=== PATIENT | female | born 1935 | race Caucasian/White ===

== ENCOUNTER 2019-07-16 16:47 | Outpatient (CLI) | payer MEDICAID, MEDICARE, SELFPAY ==
--- NOTE | 2019-07-16 | XR_ITS ---
WS: [id number] AP pelvis, AP and frog-leg views both hips, 07/16/2019 Clinical Data: Fell out of a car. Comparison: Right hip, 06/24/2018. Findings: Right hip: There is severe cyst formation on both sides of the right hip with narrowing. There are large osteoph ytes both superiorly and inferiorly on the right acetabulum. No fractures are seen. The soft tissues are normal. Left hip: No fractures or dislocations are seen. There is no significant joint space narrowing. No erosion or s clerosis is present. The soft tissues are normal. Pelvis: The right SI joint shows osteoarthritic change. The left SI joint shows mild osteoarthritic change. T he lumbar spine shows osteoarthritis. The pubic symphysis is normal. No left hip fracture is seen. Th e soft tissues are normal. XR/XR hip BI m 5V wo/w pel* [id number] Impression: 1. 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 2. 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 3. 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
== END 2019-07-16 16:48 | disposition home or self-care (01) ==
LOC: RADOUTREAD 16:52
PROVIDERS: Family Provider Family Medicine; PCP Family Medicine; Visit Provider Nurse Practitioner Family
DX: Z76.89 Persons encountering health services in other specified circumstances (principal)

== ENCOUNTER 2019-11-07 09:38 | Emergency (ER) | payer MEDICARE, MEDICAID, SELFPAY ==
[2019-11-07 09:40] VITALS: BP 180/84; PULSE 93; RESP 18; TEMP 36.9; O2SAT 95; BMI 27.4
--- NOTE | 2019-11-07 10:02 | CTR_ITS ---
PROCEDURE INFORMATION: Exam: CT Head Without Contrast Exam date and time: 11/07/2019 10:45 AM Age: 84 years old Clinical indication: Altered mental status/memory loss. TECHNIQUE: Imaging protocol: Computed tomography of the head without contrast. Radiation optimization: All CT scans at this facility use at least one of these dose optimization techniques: automated exposure control; mA and/or kV adjustment per patient size (includes targeted exams where dose is matched to clinical indication); or iterative reconstruction. COMPARISON: No relevant prior studies available. RADIATION DOSE METRICS: Total DLP: 918.4 mGy-cm FINDINGS: Brain: No acute brain parenchymal abnormality. No intracranial hemorrhage. No extraaxial fluid collections. There is diffuse cerebral atrophy. There are white matter low attenuation changes in both cerebral hemispheres likely related to chronic small vessel disease. Ventricles: No hydrocephalus when allowing for the atrophy. Bones/joints: No calvarial fracture. Sinuses: There is mild mucoperiosteal thickening, but no fluid in the visualized paranasal sinuses. Mastoid air cells: The mastoid air cells are aerated. Soft tissues: No acute soft tissue abnormality. CT/CT head wo con* [id number] IMPRESSION: No acute intracranial abnormality. Radiation Dose CTDIVOL = (mGy): DLP = 918.4 (mGy-cm)
--- NOTE | 2019-11-07 10:02 | XRR_ITS ---
PROCEDURE INFORMATION: Exam: XR Chest, 1 View Exam date and time: 11/07/2019 10:03 AM Age: 84 years old Clinical indication: AMS TECHNIQUE: Imaging protocol: XR of the chest Views: 1 view. COMPARISON: No relevant prior studies available. FINDINGS: Lungs: No pneumonia or pulmonary edema. Pleural space: No pleural effusion or pneumothorax. Heart/Mediastinum: The cardiac silhouette is not enlarged. The mediastinal contours are normal. Vasculature: The thoracic aorta is tortuous. Bones/joints: There are multilevel bridging osteophytes in the spine. Bilateral glenohumeral joint degeneration. XR/XR chest 1V portable [id number] IMPRESSION: No acute abnormality.
[2019-11-07 10:16] LABS: Basophils % 0.3 %; Eosinophils % 0.3 %; Hematocrit 37.5 % (37.0-47.0); Hemoglobin 11.8 g/dL (11.5-15.3); Lymphocytes # 1.7 10^3/uL (0.8-4.8); Lymphocytes % 28.4 %; Mean Corpuscular HGB Conc 31.5 g/dL (30.0-36.0); Mean Corpuscular Volume 98.4 fL (81-99); Mean Platelet Volume 10.1 fL (7.4-10.4); Monocytes # 0.5 10^3/uL (0.2-0.9); Monocytes % 8.7 %; Neutrophils # 3.6 10^3/uL (1.8-7.7); Neutrophils % 62.1 %; Nucleated Red Blood Cells % 0 %; Platelet Count 233 10^3/cmm (130-400); Red Blood Count 3.81 10^6/uL (4.1-5.3); Red Cell Distribution Width 12.2 % (12.1-15.1); White Blood Count 5.8 10^3/uL (4.0-10.0)
--- NOTE | 2019-11-07 10:21 | W.ED.AMS ---
HPI - Altered Mental Status General: Chief Complaint: Altered Mental Status Stated Complaint: AMS Time Seen by Provider: 11/07/19 09:39 History of Present Illness: HPI narrative: Patient was reportedly out walking when she was picked up by EMS. It is unclear exactly who called EMS or why.Patient voices no complaints. However, after discussion with the patient it is clear that she suffers from dementia. Patient is awake and alert and in no distress but seems confused at times and unable to answer even the simplest questions. MD complaint: altered mental status and confusion Onset (ago): unknown Severity: severe Review of Systems General: Reports: 10 or more systems reviewed and unremarkable except in HPI and below and ROS unobtainable due to mental status Neuro: Reports: confusion PFSH ED PFSH: Social History Smoking and tobacco status: never smoked Physical Exam Const: COMMON NORMALS: no acute distress, average body habitus, alert and well nourished EXAM LIMITATIONS: altered mental status GENERAL APPEARANCE: cooperative, comfortable and well kempt HENMT: COMMON NORMALS: normocephalic, atraumatic, hearing grossly normal bilaterally, external ears normal, EAC's normal, TM's normal bilaterally, Normal external nose present, Normal nasal mucous membranes and turbinates present, moist oral mucous membranes, oropharynx normal, dentition normal and gingiva normal HEAD & SCALP: normocephalic and atraumatic NOSE: Normal external nose present and Normal nasal mucous membranes and turbinates present EXTERNAL EAR: Yes external ears normal EXTERNAL AUDITORY CANAL: EAC's normal TYMPANIC MEMBRANE: TM's normal bilaterally Eye: COMMON NORMALS: Equal, round and reactive pupils present, EOMs intact bilaterally, conjunctivae normal, no scleral icterus, no papilledema, normal visual dahl by confrontation and fundi normal bilaterally CONJUNCTIVA: Yes conjunctivae normal PUPIL: Yes Equal, round and reactive pupils present DIRECT OPHTHALMOSCOPY: Yes no papilledema and Yes fundi normal bilaterally Neck/C-Spine: COMMON NORMALS: full ROM, no lymphadenopathy, supple, no meningeal signs, no JVD, Thyroid normal and No carotid bruits THYROID: Thyroid normal Chest: COMMONS NORMALS: normal inspection of the chest and normal palpation of entire chest wall Resp: COMMON NORMALS: normal respiratory effort, No retractions, No use of accessory muscles, clear to auscultation bilaterally and percussion normal AUSCULTATION: clear to auscultation bilaterally PERCUSSION: percussion normal Cardio: COMMON NORMALS: no JVD, regular rate, regular rhythm, S1 normal heart sound present, S2 normal heart sound present, No gallops present (Cardio), No clicks present (Cardio), No murmurs present (Cardio), No rub (Cardio) and Peripheral pulses 2+ throughout RATE: regular rate RHYTHM: regular rhythm HEART SOUNDS: S1 normal heart sound present and S2 normal heart sound present PERIPHERAL PULSES: Peripheral pulses 2+ throughout GI: COMMON NORMALS: Normal to inspection, nondistended, normoactive bowel sounds present, Soft to palpation, non-tender, No hepatosplenomegaly present, no masses and no bruits PALPATION: Yes Soft to palpation and Yes No hepatosplenomegaly present : COMMON NORMALS: Yes normal external appearance Back/Pelvis: COMMON NORMALS: thoracic and lumbar spine normal to inspection, no thoracic nor lumbar tenderness, thoraco-lumbar ROM normal and straight leg raise negative bilaterally Extremity: COMMON NORMALS: normal to inspection, full ROM, capillary refill normal, no joint enlargement, no clubbing, cyanosis or edema, no calf tenderness and no pedal edema Neuro: SENSORIUM/ORIENTATION: Yes alert and Yes somnolent MENINGEAL SIGNS: Yes no meningeal signs Psych: APPEARANCE: Yes well kempt Skin: COMMON NORMALS: no rashes or lesions noted, no wounds, no jaundice and no mottling GENERAL SKIN EXAM: no rashes or lesions noted Course Vital Signs: Vital signs: Vital Signs Temperature 98.5 F 11/07/19 09:40 Pulse Rate 93 11/07/19 09:40 Respiratory Rate 18 11/07/19 09:40 Blood Pressure 180/84 11/07/19 09:40 Pulse Oximetry 95 11/07/19 09:40 MDM - Altered Mental Status Lab Data: Labs: Lab Results 11/07/19 11/07/19 11/07/19 Range/Units 10:08 10:08 10:08 WBC 5.8 (4.0-10.0) 10^3/ uL RBC 3.81 L (4.1-5.3) 10^6/u L Hgb 11.8 (11.5-15.3) g/dL Hct 37.5 (37.0-47.0) % MCV 98.4 (81-99) fL MCH 31.0 (28.0-34.0) pg MCHC 31.5 (30.0-36.0) g/dL RDW 12.2 (12.1-15.1) % Plt Count 233 (130-400) 10^3/c mm MPV 10.1 (7.4-10.4) fL Neut % (Auto) 62.1 % Lymph % (Auto) 28.4 % [place] % (Auto) 8.7 % Eos % (Auto) 0.3 % Baso % (Auto) 0.3 % Neut # (Auto) 3.6 (1.8-7.7) 10^3/u L Lymph # (Auto) 1.7 (0.8-4.8) 10^3/u L [place] # (Auto) 0.5 (0.2-0.9) 10^3/u L Eos # (Auto) 0.0 (0.0-0.8) 10^3/u L Baso # (Auto) 0.0 (0.0-0.1) 10^3/u L Nucleated RBC % (a uto) 0 % Nucleated RBCs # 0.0 /100WBC Sodium 136 (136-145) mmol/L Potassium 4.3 (3.5-5.1) mmol/L Chloride 101 (98-107) mmol/L Carbon Dioxide 24 (22-29) mmol/L Anion Gap 15.3 (5-19) BUN 9 (8-23) mg/dL Creatinine 0.7 (0.5-0.9) mg/dL Glucose 113 (65-115) mg/dL Calculated Osmolal ity 279 L (285-295) mOsm/k g Lactate 0.8 (0.5-2.2) mmol/L Calcium 10.8 H (8.5-10.5) mg/dL Total Bilirubin 0.5 (0.15-1.2) mg/dL AST 22 (0-32) U/L ALT 11 (0-33) U/L Alkaline Phosphata se 69 (35-105) IU/L Total Protein 7.4 (6.6-8.7) g/dL Albumin 4.2 (3.5-5.2) g/dL Globulin 3.2 (1.3-4.6) g/dL Lipase 26 (13-60) U/L Urine Color (Yellow) Urine Appearance (CLEAR) Urine pH (5-7) Ur Specific Gravit y (1.005-1.030) Urine Protein (Negative) Urine Glucose (UA) (Normal) Urine Ketones (Negative) Urine Blood (Negative) Urine Nitrate (Negative) Urine Bilirubin (NEGATIVE) Urine Urobilinogen (Negative) mg/dL Ur Leukocyte Susi ase (Negative) Urine RBC (0-2) /hpf Urine WBC (0-5) /hpf Ur Squamous Epith Cells (0-5) Amorphous Sediment Urine Bacteria (NONE) Urine Mucus 11/07/19 Range/Units 10:36 WBC (4.0-10.0) 10^3/ uL RBC (4.1-5.3) 10^6/u L Hgb (11.5-15.3) g/dL Hct (37.0-47.0) % MCV (81-99) fL MCH (28.0-34.0) pg MCHC (30.0-36.0) g/dL RDW (12.1-15.1) % Plt Count (130-400) 10^3/c mm MPV (7.4-10.4) fL Neut % (Auto) % Lymph % (Auto) % [place] % (Auto) % Eos % (Auto) % Baso % (Auto) % Neut # (Auto) (1.8-7.7) 10^3/u L Lymph # (Auto) (0.8-4.8) 10^3/u L [place] # (Auto) (0.2-0.9) 10^3/u L Eos # (Auto) (0.0-0.8) 10^3/u L Baso # (Auto) (0.0-0.1) 10^3/u L Nucleated RBC % (a uto) % Nucleated RBCs # /100WBC Sodium (136-145) mmol/L Potassium (3.5-5.1) mmol/L Chloride (98-107) mmol/L Carbon Dioxide (22-29) mmol/L Anion Gap (5-19) BUN (8-23) mg/dL Creatinine (0.5-0.9) mg/dL Glucose (65-115) mg/dL Calculated Osmolal ity (285-295) mOsm/k g Lactate (0.5-2.2) mmol/L Calcium (8.5-10.5) mg/dL Total Bilirubin (0.15-1.2) mg/dL AST (0-32) U/L ALT (0-33) U/L Alkaline Phosphata se (35-105) IU/L Total Protein (6.6-8.7) g/dL Albumin (3.5-5.2) g/dL Globulin (1.3-4.6) g/dL Lipase (13-60) U/L Urine Color Yellow (Yellow) Urine Appearance Sl hazy (CLEAR) Urine pH 7 (5-7) Ur Specific Gravit y 1.010 (1.005-1.030) Urine Protein Neg (Negative) Urine Glucose (UA) Norm (Normal) Urine Ketones Negative (Negative) Urine Blood Neg (Negative) Urine Nitrate Negative (Negative) Urine Bilirubin Neg (NEGATIVE) Urine Urobilinogen Norm (Negative) mg/dL Ur Leukocyte Susi ase Negative (Negative) Urine RBC None (0-2) /hpf Urine WBC None (0-5) /hpf Ur Squamous Epith Cells Rare (0-5) Amorphous Sediment 1+ Urine Bacteria Trace (NONE) Urine Mucus Trace Discharge Plan Discharge Patient Disposition: Home, Self-Care Clinical Impression: Dementia Qualifiers: Dementia type: unspecified type Dementia behavioral disturbance: without behavioral disturbance Qualified Code(s): F03.90 - Unspecified dementia without behavioral disturbance Condition: Stable Prescriptions: No Action Unable to Assess RF: 0 Discharge Orders: Discharge Order (Routine); Ordered 11/07/19 Ordered By: Wilber Murry Referrals: Felice Xavier MD [Primary Care Provider] - Coding Level of Care Code ED Leadership Coach for g Fwd Exam Comprehensive
[2019-11-07 10:30] LABS: Alanine Aminotransferase 11 U/L (0-33); Albumin Level 4.2 g/dL (3.5-5.2); Alkaline Phosphatase 69 IU/L (35-105); Anion Gap 15.3 (5-19); Aspartate Amino Transferase 22 U/L (0-32); Blood Urea Nitrogen 9 mg/dL (8-23); Calcium 10.8 mg/dL (8.5-10.5); Carbon Dioxide 24 mmol/L (22-29); Chloride 101 mmol/L (98-107); Creatinine Clr Calc Pharmacy 53.9122; Globulin 3.2 g/dL (1.3-4.6); Glucose 113 mg/dL (65-115); Lactate (Lactic Acid level) 0.8 mmol/L (0.5-2.2); Lipase 26 U/L (13-60); Osmolality Calculated 279 mOsm/kg (285-295); Potassium 4.3 mmol/L (3.5-5.1); Sodium 136 mmol/L (136-145); Total Bilirubin 0.5 mg/dL (0.15-1.2); Total Protein 7.4 g/dL (6.6-8.7)
[2019-11-07 11:46] LABS: Add Urine Microscopic? YES; Bilirubin Urine Neg (NEGATIVE); Blood Urine Neg (Negative); Glucose Urine UA Norm (Normal); Ketones Urine Negative (Negative); Leukocyte Esterase Urine Negative (Negative); Nitrate Urine Negative (Negative); Protein Urine Neg (Negative); Urine Appearance SL Hazy (CLEAR); Urine Color Yellow (Yellow); Urobilinogen Urine Norm (Negative); pH Urine 7 (5-7)
[2019-11-07 11:50] LABS: Bacteria Urine TRACE; Squamous Epithelial Cell Urine RARE (0-5)
[2019-11-07 11:51] LABS: Add Urine Culture? No; Amorphous Sediment Urine 1+; Mucus Urine TRACE
[2019-11-07 12:45] VITALS: PULSE 86; O2SAT 96
== END 2019-11-07 12:51 | disposition home or self-care (01) ==
PROVIDERS: Emergency Provider Family Medicine; PCP Family Medicine
DX: F03.90 Unspecified dementia, unspecified severity, without behavioral disturbance, psychotic disturbance, mood disturbance, and anxiety (principal)
CPT/HCPCS: 12345; 36415; 70450; 71045; 80053; 81001; 83605; 83690; 85025; 99282; 99283

== ENCOUNTER 2019-12-21 11:23 | Inpatient (IN) | payer MEDICARE, MEDICAID, SELFPAY ==
[2019-12-21] VITALS (27 sets, daily range): BP systolic 107–170; BP diastolic 56–96; PULSE 74–150; RESP 12–22; TEMP 36.6–36.7; O2SAT 90–98; BMI 22.6
--- NOTE | 2019-12-21 11:36 | XRR_ITS ---
PROCEDURE INFORMATION: Exam: XR Chest, 1 View Exam date and time: 12/21/2019 12:14 PM Age: 84 years old Clinical indication: Other: AMS TECHNIQUE: Imaging protocol: XR of the chest Views: 1 view. COMPARISON: CR (CHEST, ) 11/07/2019 10:35 AM FINDINGS: Lungs: Emphysematous change, interstitial prominence, chronic granulomatous disease. Pleural space: No pleural effusion. Heart/Mediastinum: No cardiomegaly. Vasculature: Ectasia of the thoracic aorta. Bones/joints: Osteopenia and degenerative change. XR/XR chest 1V portable [id number] IMPRESSION: Emphysematous change, interstitial prominence, chronic granulomatous disease.
--- NOTE | 2019-12-21 11:36 | CT_ITS ---
WS: [id number] CT HEAD NONCONTRAST HISTORY: AMS TECHNIQUE: Contiguous axial imaging performed through the brain in 2.5 mm imaging. Bone and soft tiss ue windows. Sagittal and coronal reformats reviewed. All CT scans at [facility] use at ast one of these dose optimization techniques: automated exposure control; mA and/or kV adjustment pe r patient size (includes targeted exams where dose is matched to clinical indication); or iterative r econstruction. DLP: 1223.93 mGy.cm COMPARISON: 11/07/2019 No acute intracranial hemorrhage, midline shift or mass effect. Moderate atrophy, greatest involving the frontal and temporal lobes bilaterally. Mild chronic microva scular ischemic disease. There is several small lacunar infarcts in the basal ganglia bilaterally. Ventricles: Ventricles and extra-axial spaces are prominent. Ventriculomegaly is probably on the bas is of atrophy. No significant bowing of the corpus callosum. Mild atherosclerosis intracranial carotid arteries. Paranasal sinuses: Very small air-fluid level in the RIGHT maxillary sinus. Mastoid air cells: Well pneumatized. Calvarium and scalp: Skull is intact with no soft tissue edema or swelling. CT/CT head wo con* [id number] IMPRESSION: 1. No acute intracranial hemorrhage or edema. 2. Moderate bilateral atrophy, greatest involving the frontotemporal lobes, s imilar to the prior study. 3. Mild ventriculomegaly is probably on the basis of central and peripheral at rophy.
--- NOTE | 2019-12-21 11:37 | ECG_ITS ---
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 Measurements Intervals [place] Rate: 125 P: 66 IA: 141 QRS: 18 QRSD: 76 T: 83 QT: 284 QTc: 410 Interpretive Statements SINUS TACHYCARDIA NONSPECIFIC ST & T-WAVE ABNORMALITY ABNORMAL RHYTHM ECG No previous ECG available for comparison Electronically Signed On 12-21-2019 16:26:34 CDT by Reece Romero M.D. [id number]
[2019-12-21 11:45] LABS: Basophils % 0.2 %; Hematocrit 51.9 % (37.0-47.0); Hemoglobin 16.2 g/dL (11.5-15.3); Lymphocytes # 1.9 10^3/uL (0.8-4.8); Lymphocytes % 17.5 %; Mean Corpuscular HGB Conc 31.2 g/dL (30.0-36.0); Mean Corpuscular Hemoglobin 30.7 pg (28.0-34.0); Mean Corpuscular Volume 98.3 fL (81-99); Mean Platelet Volume 12.6 fL (7.4-10.4); Monocytes # 1.1 10^3/uL (0.2-0.9); Monocytes % 10.1 %; Neutrophils # 7.79 10^3/uL (1.8-7.7); Neutrophils % 71.9 %; Nucleated Red Blood Cells % 0 %; Platelet Count 218 10^3/cmm (130-400); Red Blood Count 5.28 10^6/uL (4.1-5.3); Red Cell Distribution Width 12.7 % (12.1-15.1); White Blood Count 10.8 10^3/uL (4.0-10.0)
[2019-12-21 11:59] LABS: INR 1.01 (0.8-1.2)
--- NOTE | 2019-12-21 12:05 | W.ED.AMS ---
HPI - Altered Mental Status General: Chief Complaint: Altered Mental Status Stated Complaint: SEPSIS Time Seen by Provider: 12/21/19 11:27 Source: patient and EMS Mode of arrival: EMS Limitations: altered mental status History of Present Illness: HPI narrative: Ryann is an 84-year-old female brought in by EMS after she was found at home in her bed covered in urine and feces and unable to get out of bed. Free to cannot answer questions. I have asked her multiple times what happened and she cannot relate to me what has happened to her. Is believed is been 5 days since she was last seen normal. The patient states no when I ask her if she hurts anywhere. Old charts are reviewed but nothing can be found other than a diagnosis of dementia but no complete past medical history, medication list or otherwise can be found in the computer at this time. Review of Systems General: Reports: ROS unobtainable due to mental status [facility] ED PFSH: Medical History Dementia Social History Smoking and tobacco status: never smoked Physical Exam Const: EXAM LIMITATIONS: altered mental status GENERAL APPEARANCE: anxious, combative, lethargic, ill appearing and frail appearing ORIENTATION/CONSCIOUSNESS: Yes lethargic HENMT: COMMON NORMALS: normocephalic, atraumatic, external ears normal, EAC's normal and Normal external nose present HEAD & SCALP: normal to inspection, normocephalic and atraumatic FACE & SINUS: normal facial exam and face symmetric NOSE: Normal external nose present and Normal nares present EXTERNAL EAR: Yes external ears normal EXTERNAL AUDITORY CANAL: EAC's normal MOUTH: Normal oral and palatal mucosa present, lip normal and tongue normal Eye: COMMON NORMALS: Equal, round and reactive pupils present and conjunctivae normal GENERAL EYE: appearance normal, both eyes and all related structures ALIGNMENT: Yes alignment normal PERIORBITAL: periorbital findings normal EYELID: eyelids normal CONJUNCTIVA: Yes conjunctivae normal SCLERA: sclerae normal PUPIL: Yes Equal, round and reactive pupils present Neck/C-Spine: COMMON NORMALS: full ROM, no lymphadenopathy, supple, no meningeal signs and no JVD GENERAL: Yes normal visual inspection and Yes trachea midline Chest: COMMONS NORMALS: normal inspection of the chest and normal palpation of entire chest wall Resp: COMMON NORMALS: normal respiratory effort, No retractions and No use of accessory muscles EFFORT & INSPECTION: Yes able to speak in complete sentences and Yes symmetric chest movement AUSCULTATION: no crackles, no rales, no rhonchi and no wheezes Cardio: COMMON NORMALS: no JVD, regular rate, regular rhythm, S1 normal heart sound present and S2 normal heart sound present RATE: regular rate RHYTHM: regular rhythm HEART SOUNDS: S1 normal heart sound present, S2 normal heart sound present, no click, no gallops, no murmurs, no rubs and abnormal split S2 GI: COMMON NORMALS: Soft to palpation and No hepatosplenomegaly present PALPATION: Yes Soft to palpation, No Tenderness to palpation present (GI), No Guarding due to palpation present (GI), No Rigid due to palpation, Yes No hepatosplenomegaly present, No Hernia present, No Palpable mass present and No Pulsatile mass present : COMMON NORMALS: Yes no CVA tenderness BLADDER/KIDNEY EXAM: Yes no CVA tenderness EXTERNAL FEMALE EXAM: No Hernia present Back/Pelvis: COMMON NORMALS: no CVA tenderness, thoracic and lumbar spine normal to inspection, no thoracic nor lumbar tenderness and thoraco-lumbar ROM normal Extremity: COMMON NORMALS: normal to inspection, full ROM, capillary refill normal, no joint enlargement, no clubbing, cyanosis or edema and no calf tenderness Neuro: COMMON NORMALS: CN's II-XII intact bilaterally, moves all extremities, no focal motor deficits and no sensory deficits noted SENSORIUM/ORIENTATION: Yes lethargic MENINGEAL SIGNS: Yes no meningeal signs Skin: COMMON NORMALS: turgor normal, no jaundice, no petechiae and no mottling NARRATIVE SKIN EXAM: Right calf with pressure ulcer and back is diffusely reddened without obvious ulcer. GENERAL SKIN EXAM: turgor normal Urinary Catheter Management^: Irwin: Cath Placed During This Visit: yes Reason for Continuing Indwelling Catheter: Other Urinary Catheter Date of Insertion: 12/21/19 Urinary Catheter Time of Insertion: 11:50 Course Vital Signs: Vital signs: Vital Signs Pulse Rate 90 12/21/19 14:20 Respiratory Rate 18 12/21/19 14:20 Blood Pressure 154/93 12/21/19 14:20 Pulse Oximetry 98 12/21/19 14:20 MDM - Altered Mental Status MDM Narrative: Medical decision making narrative: Sola is a 84-year-old female with altered mental status. What caused the patient's baseline altered mental status cannot be determined at this time. She still is answering only yes/no questions. She is very dehydrated hyponatremic. Patient was empirically given a sepsis bolus but her fluids have been slowed down now and will be guided by Dr. Montoya. The patient is hemodynamically stable and is making urine. Further care be dictated by Dr. Montoya in the ICU. Lab Data: Attestation: I reviewed the patient's lab results. Labs: Lab Results 12/21/19 12/21/19 12/21/19 Range/Units 11:38 11:38 11:38 WBC 10.8 H (4.0-10.0) 10^3/ uL RBC 5.28 (4.1-5.3) 10^6/u L Hgb 16.2 H (11.5-15.3) g/dL Hct 51.9 H (37.0-47.0) % MCV 98.3 (81-99) fL MCH 30.7 (28.0-34.0) pg MCHC 31.2 (30.0-36.0) g/dL RDW 12.7 (12.1-15.1) % Plt Count 218 (130-400) 10^3/c mm MPV 12.6 H (7.4-10.4) fL Neut % (Auto) 71.9 % Lymph % (Auto) 17.5 % Jennings % (Auto) 10.1 % Eos % (Auto) 0.0 % Baso % (Auto) 0.2 % Neut # (Auto) 7.79 H (1.8-7.7) 10^3/u L Lymph # (Auto) 1.9 (0.8-4.8) 10^3/u L Jennings # (Auto) 1.1 H (0.2-0.9) 10^3/u L Eos # (Auto) 0.0 (0.0-0.8) 10^3/u L Baso # (Auto) 0.0 (0.0-0.1) 10^3/u L Nucleated RBC % (a uto) 0 % Nucleated RBCs # 0.0 /100WBC PT 13.60 H (10.5-13.3) SECO NDS INR 1.01 (0.8-1.2) Specimen Type Sample Site ABG pH (7.35-7.45) ABG pCO2 (35-45) mmHg ABG pO2 (80.0-100.0) mmH g ABG HCO3 (22-26) mmol/L ABG O2 Saturation ABG Base Excess (-2.0-2.0) mmol/ L Sanchez Test Hematocrit (37-47) % Hgb O2 Saturation (95-100) % Carboxyhemoglobin (0.4-20.1) %THgb Methemoglobin (0.4-1.5) % Total Hemoglobin (12-16) g/dL Ionized Calcium (1.1-1.4) mmol/L O2 Delivery Device FiO2 % Wool Dyer ID Sodium 155 H (136-145) mmol/L Potassium 4.1 (3.5-5.1) mmol/L Chloride 116 H (98-107) mmol/L Carbon Dioxide 24 (22-29) mmol/L Anion Gap 19.1 H (5-19) BUN 80 H (8-23) mg/dL Creatinine 0.9 (0.5-0.9) mg/dL Glucose 143 H (65-115) mg/dL Calculated Osmolal ity 322 H (285-295) mOsm/k g Lactic Acid (0.5-2.2) mmol/L Calcium 13.3 H (8.5-10.5) mg/dL Magnesium 2.6 H (1.7-2.3) mg/dL Total Bilirubin 1.2 (0.15-1.2) mg/dL AST 42 H (0-32) U/L ALT 26 (0-33) U/L Alkaline Phosphata se 62 (35-105) IU/L Creatine Kinase 128 (26-192) U/L Troponin T Baselin e (0-10) ng/L Troponin T 120 Min [place] (0-10) ng/L Delta Troponin T (0-10) ABS# Total Protein 7.7 (6.6-8.7) g/dL Albumin 4.1 (3.5-5.2) g/dL Globulin 3.6 (1.3-4.6) g/dL Lipase 70 H (13-60) U/L TSH 3.64 (0.27-4.20) uIU/ mL Free T4 0.93 (0.82-1.77) ng/d L Urine Color (Yellow) Urine Appearance (CLEAR) Urine pH (5-7) Ur Specific Gravit y (1.005-1.030) Urine Protein (Negative) Urine Glucose (UA) (Normal) Urine Ketones (Negative) Urine Blood (Negative) Urine Nitrate (Negative) Urine Bilirubin (NEGATIVE) Urine Urobilinogen (Negative) mg/dL Ur Leukocyte Susi ase (Negative) Urine RBC (0-2) /hpf Urine WBC (0-5) /hpf Ur Squamous Epith Cells (0-5) Urine Bacteria (NONE) Urine Mucus Serum Ketones (Negative) 12/21/19 12/21/19 12/21/19 Range/Units 11:38 11:38 11:38 WBC (4.0-10.0) 10^3/ uL RBC (4.1-5.3) 10^6/u L Hgb (11.5-15.3) g/dL Hct (37.0-47.0) % MCV (81-99) fL MCH (28.0-34.0) pg MCHC (30.0-36.0) g/dL RDW (12.1-15.1) % Plt Count (130-400) 10^3/c mm MPV (7.4-10.4) fL Neut % (Auto) % Lymph % (Auto) % Jennings % (Auto) % Eos % (Auto) % Baso % (Auto) % Neut # (Auto) (1.8-7.7) 10^3/u L Lymph # (Auto) (0.8-4.8) 10^3/u L Jennings # (Auto) (0.2-0.9) 10^3/u L Eos # (Auto) (0.0-0.8) 10^3/u L Baso # (Auto) (0.0-0.1) 10^3/u L Nucleated RBC % (a uto) % Nucleated RBCs # /100WBC PT (10.5-13.3) SECO NDS INR (0.8-1.2) Specimen Type Sample Site ABG pH (7.35-7.45) ABG pCO2 (35-45) mmHg ABG pO2 (80.0-100.0) mmH g ABG HCO3 (22-26) mmol/L ABG O2 Saturation ABG Base Excess (-2.0-2.0) mmol/ L Sanchez Test Hematocrit (37-47) % Hgb O2 Saturation (95-100) % Carboxyhemoglobin (0.4-20.1) %THgb Methemoglobin (0.4-1.5) % Total Hemoglobin (12-16) g/dL Ionized Calcium (1.1-1.4) mmol/L O2 Delivery Device FiO2 % Wool Dyer ID Sodium (136-145) mmol/L Potassium (3.5-5.1) mmol/L Chloride (98-107) mmol/L Carbon Dioxide (22-29) mmol/L Anion Gap (5-19) BUN (8-23) mg/dL Creatinine (0.5-0.9) mg/dL Glucose (65-115) mg/dL Calculated Osmolal ity (285-295) mOsm/k g Lactic Acid 2.7 H (0.5-2.2) mmol/L Calcium (8.5-10.5) mg/dL Magnesium (1.7-2.3) mg/dL Total Bilirubin (0.15-1.2) mg/dL AST (0-32) U/L ALT (0-33) U/L Alkaline Phosphata se (35-105) IU/L Creatine Kinase (26-192) U/L Troponin T Baselin e 86 H (0-10) ng/L Troponin T 120 Min [place] (0-10) ng/L Delta Troponin T (0-10) ABS# Total Protein (6.6-8.7) g/dL Albumin (3.5-5.2) g/dL Globulin (1.3-4.6) g/dL Lipase (13-60) U/L TSH (0.27-4.20) uIU/ mL Free T4 (0.82-1.77) ng/d L Urine Color (Yellow) Urine Appearance (CLEAR) Urine pH (5-7) Ur Specific Gravit y (1.005-1.030) Urine Protein (Negative) Urine Glucose (UA) (Normal) Urine Ketones (Negative) Urine Blood (Negative) Urine Nitrate (Negative) Urine Bilirubin (NEGATIVE) Urine Urobilinogen (Negative) mg/dL Ur Leukocyte Susi ase (Negative) Urine RBC (0-2) /hpf Urine WBC (0-5) /hpf Ur Squamous Epith Cells (0-5) Urine Bacteria (NONE) Urine Mucus Serum Ketones Positive H (Negative) 12/21/19 12/21/19 12/21/19 Range/Units 11:56 12:00 13:39 WBC (4.0-10.0) 10^3/ uL RBC (4.1-5.3) 10^6/u L Hgb (11.5-15.3) g/dL Hct (37.0-47.0) % MCV (81-99) fL MCH (28.0-34.0) pg MCHC (30.0-36.0) g/dL RDW (12.1-15.1) % Plt Count (130-400) 10^3/c mm MPV (7.4-10.4) fL Neut % (Auto) % Lymph % (Auto) % Jennings % (Auto) % Eos % (Auto) % Baso % (Auto) % Neut # (Auto) (1.8-7.7) 10^3/u L Lymph # (Auto) (0.8-4.8) 10^3/u L Jennings # (Auto) (0.2-0.9) 10^3/u L Eos # (Auto) (0.0-0.8) 10^3/u L Baso # (Auto) (0.0-0.1) 10^3/u L Nucleated RBC % (a uto) % Nucleated RBCs # /100WBC PT (10.5-13.3) SECO NDS INR (0.8-1.2) Specimen Type Arterial Sample Site Brachial, left ABG pH 7.43 (7.35-7.45) ABG pCO2 37.9 (35-45) mmHg ABG pO2 136.0 H (80.0-100.0) mmH g ABG HCO3 25.2 (22-26) mmol/L ABG O2 Saturation 99.3 ABG Base Excess 1.1 (-2.0-2.0) mmol/ L Sanchez Test N/a Hematocrit 50.8 H (37-47) % Hgb O2 Saturation 98.0 (95-100) % Carboxyhemoglobin 0.6 (0.4-20.1) %THgb Methemoglobin 0.8 (0.4-1.5) % Total Hemoglobin 16.6 H (12-16) g/dL Ionized Calcium 1.7 H (1.1-1.4) mmol/L O2 Delivery Device None FiO2 21.0 % Wool Dyer ID glc Sodium 160.0 H (136-145) mmol/L Potassium 4.1 (3.5-5.1) mmol/L Chloride (98-107) mmol/L Carbon Dioxide (22-29) mmol/L Anion Gap (5-19) BUN (8-23) mg/dL Creatinine (0.5-0.9) mg/dL Glucose 149.0 H (65-115) mg/dL Calculated Osmolal ity (285-295) mOsm/k g Lactic Acid (0.5-2.2) mmol/L Calcium (8.5-10.5) mg/dL Magnesium (1.7-2.3) mg/dL Total Bilirubin (0.15-1.2) mg/dL AST (0-32) U/L ALT (0-33) U/L Alkaline Phosphata se (35-105) IU/L Creatine Kinase (26-192) U/L Troponin T Baselin e (0-10) ng/L Troponin T 120 Min [place] 69.32 H (0-10) ng/L Delta Troponin T -16.68 L (0-10) ABS# Total Protein (6.6-8.7) g/dL Albumin (3.5-5.2) g/dL Globulin (1.3-4.6) g/dL Lipase (13-60) U/L TSH (0.27-4.20) uIU/ mL Free T4 (0.82-1.77) ng/d L Urine Color Yellow (Yellow) Urine Appearance Clear (CLEAR) Urine pH 5 (5-7) Ur Specific Gravit y 1.020 (1.005-1.030) Urine Protein Neg (Negative) Urine Glucose (UA) Norm (Normal) Urine Ketones 1+ H (Negative) Urine Blood Neg (Negative) Urine Nitrate Negative (Negative) Urine Bilirubin 1+ H (NEGATIVE) Urine Urobilinogen 1 H (Negative) mg/dL Ur Leukocyte Susi ase Negative (Negative) Urine RBC None (0-2) /hpf Urine WBC 0-4 H (0-5) /hpf Ur Squamous Epith Cells 0-4 H (0-5) Urine Bacteria 1+ H (NONE) Urine Mucus 3+ Serum Ketones (Negative) Imaging Data^: CXR: My impression: Possible right upper lobe infiltrate otherwise no acute findings. CT Head: Radiologist's impression: [address] [address] [address] Scan Report Signed Patient: Sola Juárez Unit #: [id number] : 1935 Age/Sex: 84 / F ADM Date: 12/21/19 Loc: ER Room/Bed: Attending Dr: Ordering Provider/Ordering MD: Hanna Lopez DO Date of Service: 12/21/19 Procedure(s): CT head wo con* 80083 Accession Number(s): [id number] Report Number: [id number] WS: [id number] CT HEAD NONCONTRAST HISTORY: AMS TECHNIQUE: Contiguous axial imaging performed through the brain in 2.5 mm imaging. Bone and soft tissue windows. Sagittal and coronal reformats reviewed. All CT scans at [facility] use at least one of these dose optimization techniques: automated exposure control; mA and/or kV adjustment per patient size (includes targeted exams where dose is matched to clinical indication); or iterative reconstruction. DLP: 1223.93 mGy.cm COMPARISON: 11/07/2019 No acute intracranial hemorrhage, midline shift or mass effect. Moderate atrophy, greatest involving the frontal and temporal lobes bilaterally. Mild chronic microvascular ischemic disease. There is several small lacunar infarcts in the basal ganglia bilaterally. Ventricles: Ventricles and extra-axial spaces are prominent. Ventriculomegaly is probably on the basis of atrophy. No significant bowing of the corpus callosum. Mild atherosclerosis intracranial carotid arteries. Paranasal sinuses: Very small air-fluid level in the RIGHT maxillary sinus. Mastoid air cells: Well pneumatized. Calvarium and scalp: Skull is intact with no soft tissue edema or swelling. CT/CT head wo con* 29320 IMPRESSION: 1. No acute intracranial hemorrhage or edema. 2. Moderate bilateral atrophy, greatest involving the frontotemporal lobes, similar to the prior study. 3. Mild ventriculomegaly is probably on the basis of central and peripheral atrophy. Dictated By: Lorena Donovan DO Signed By: Lorena Donovan DO Signed Date/Time: 12/21/19 1313 DD/ 1310 EKG Data^: EKG 1: Attestation: I personally reviewed and interpreted this EKG as follows: EKG interpretation date: 12/21/19 EKG interpretation time: 12:05 Interpretation: Sinus tachycardia at 125 beats a minute, nonspecific ST and T wave changes, no blocks, normal intervals. Discharge Plan Discharge Patient Disposition: Admitted As Inpatient Admit Provider: Joseph Montoya Clinical Impression: Acute hypernatremia, Encephalopathy acute Condition: Stable Referrals: Felice Xavier MD [Primary Care Provider] - Discharge Date/Time: 12/21/19 14:47 Coding Level of Care Code ED Explosive Operator Grenade for Chg Fwd Exam Comprehensive
[2019-12-21 12:07] LABS: ABG PCO2 37.9 mmHg (35-45); ABG PH Result 7.43 (7.35-7.45); Arterial Blood Gas Hematocrit 50.8 % (37-47); Base Excess ABG 1.1 mmol/L (-2.0-2.0); Blood Gas Operator Identificat glc; Blood Gas Sample Site Brachial, left; Blood Gas Sample Type Arterial; Carboxyhemoglobin 0.6 %THgb (0.4-20.1); HCO3 ABG 25.2 mmol/L (22-26); Ionized Calcium Level - ABG 1.7 mmol/L (1.1-1.4); Methemoglobin 0.8 % (0.4-1.5); Oxygen Saturation ABG 99.3; Potassium Level - ABG 4.1 mmol/L (3.5-5.0); Total Hemoglobin 16.6 g/dL (12-16)
[2019-12-21 12:08] LABS: Lactic Sepsis W/Reflex 2.7 mmol/L (0.5-2.2)
[2019-12-21] MEDS: ondansetron 2 mg/ML SDV 2 mL 4 MG IVP (12:09)
[2019-12-21 12:13] LABS: Troponin(5th) Baseline 86 ng/L (0-10)
[2019-12-21] MEDS: sodium chloride 0.9% 1,905.09 ML 1905.1 ML IV (12:16)
[2019-12-21 12:17] LABS: Alanine Aminotransferase 26 U/L (0-33); Albumin Level 4.1 g/dL (3.5-5.2); Alkaline Phosphatase 62 IU/L (35-105); Aspartate Amino Transferase 42 U/L (0-32); Blood Urea Nitrogen 80 mg/dL (8-23); Calcium 13.3 mg/dL (8.5-10.5); Carbon Dioxide 24 mmol/L (22-29); Chloride 116 mmol/L (98-107); Creatine Phosphokinase 128 U/L (26-192); Free T4 Free Thyroxine 0.93 ng/dL (0.82-1.77); Globulin 3.6 g/dL (1.3-4.6); Glucose 143 mg/dL (65-115); Lipase 70 U/L (13-60); Magnesium 2.6 mg/dL (1.7-2.3); Osmolality Calculated 322 mOsm/kg (285-295); Sodium 155 mmol/L (136-145); Thyroid Stimulating Hormone 3.64 uIU/mL (0.27-4.20); Total Bilirubin 1.2 mg/dL (0.15-1.2); Total Protein 7.7 g/dL (6.6-8.7)
[2019-12-21 12:25] LABS: Ketone (Acetest) Serum Positive (Negative)
[2019-12-21 12:27] LABS: Anion Gap 19.1 (5-19); Potassium 4.1 mmol/L (3.5-5.1)
[2019-12-21 12:38] LABS: Add Urine Culture? Yes; Bacteria Urine 1+; Bilirubin Urine 1+ (NEGATIVE); Blood Urine Neg (Negative); Glucose Urine UA Norm (Normal); Ketones Urine 1+ (Negative); Leukocyte Esterase Urine Negative (Negative); Mucus Urine 3+; Nitrate Urine Negative (Negative); Protein Urine Neg (Negative); Squamous Epithelial Cell Urine 0-4 (0-5); Urine Appearance Clear (CLEAR); Urine Color Yellow (Yellow); Urobilinogen Urine 1 mg/dL (Negative); WBC Urine 0-4 /hpf (0-5); pH Urine 5 (5-7)
[2019-12-21 13:30] LABS: Reflex Lactate Order REFLEX LACTIC ORDERD
--- NOTE | 2019-12-21 13:37 | ECG_ITS ---
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 Measurements Intervals [place] Rate: 91 P: 60 MS: 142 QRS: 36 QRSD: 84 T: 67 QT: 349 QTc: 431 Interpretive Statements SINUS RHYTHM NONSPECIFIC T-WAVE ABNORMALITY Compared to ECG 12/21/2019 12:05:33 Sinus tachycardia no longer present T-wave abnormality still present Electronically Signed On 12-21-2019 16:32:14 CDT by Reece Romero M.D. [id number]
[2019-12-21 14:01] LABS: Troponin 5 2HR 69.32 ng/L (0-10)
[2019-12-21] MEDS: sodium chloride 0.9% 1,000 ML 100 ML IV (14:44)
--- NOTE | 2019-12-21 14:53 | P.HP_ITS ---
Providers/Chief Complaint Admitting Physician: Joseph Montoya MD Primary Care Provider: Felice Xavier MD Chief Complaint: SEPSIS History of Present Illness Sola Juárez is a 84 year old female that presented to the emergency department after being found at home in her bed covered in feces and unable to get out of bed. It has been 5 days since she was seen last. 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 No family is present, to contact regarding further history. Apparently there is a history of dementia. Review of Systems General: Reports: ROS unobtainable due to mental status Medications/Allergies Home Medications Medication Instructions Recorded Confirmed Last Taken Type cholecalciferol (vitamin D3) 10 mcg PO DAILY 12/21/19 12/21/19 Unknown History [Vitamin D3] cyanocobalamin (vitamin B-12) 1,000 mcg PO DAILY 12/21/19 12/21/19 Unknown History [Vitamin B-12] magnesium 250 mg PO DAILY 12/21/19 12/21/19 Unknown History meloxicam 7.5 mg PO DAILY 12/21/19 12/21/19 Unknown History Allergies Allergy/AdvReac Type Severity Reaction Status Date / Time No Known Allergies Allergy Verified 11/07/19 09:48 PFSH Acute PFSH: Medical History Dementia Social History Smoking and tobacco status: never smoked Supplemental PFSH Information: Secondary to significant decrease in mental status unable to obtain family history or social history. Vitals/I&O/Wt Last Vital Signs Pulse 90 12/21/19 14:20 Resp 18 12/21/19 14:20 BP 154/93 12/21/19 14:20 Pulse Ox 98 12/21/19 14:20 12/20/19 12/21/19 12/21/19 22:59 06:59 14:59 Intake Total 1904.1904. Balance 1904.1904. Weight last 48 hrs Weight 63.503 kg Physical Exam Narrative: EXAM NARRATIVE: General exam demonstrates a white female, who ap pears tired and will open her eyes to verbal stimulus, and will say no to most questions. She will say an occasional other word and seems to indicate she is not in any pain HEENT: Pupils equally round. Oropharynx demonstrates poor dentition and dry mucous membranes Neck is supple no lymphadenopathy or thyromegaly Cardiovascular regular rate and rhythm with a 2/6 systolic murmur Lungs clear no wheezes or crackles Abdomen is soft with positive bowel sounds. No obvious organomegaly was deferred Extremities no cyanosis clubbing or edema, cap refill brisk Skin no rash Neuro: No obvious focal deficits, obviously confused Urinary Catheter Management^: Irwin: Cath Placed During This Visit: yes Reason for Continuing Indwelling Catheter: Other Urinary Catheter Date of Insertion: 12/21/19 Urinary Catheter Time of Insertion: 11:50 Data : 12/21/19 11:38 12/21/19 11:38 Micro: Microbiology 12/21/19 11:35 Blood Culture - Preliminary Blood SPECIMEN COLLECTED 12/21/19 11:38 Blood Culture - Preliminary Blood SPECIMEN COLLECTED Other data: Head CT demonstrates atrophy, no acute findings Chest x-ray likely COPD, no obvious infiltrate Blood cultures were collected Initial EKG demonstrated sinus tachycardia with a rate of 125, normal axis, nonspecific ST-T wave changes. Repeat heart rate now 90. INR normal pH 7.4, PCO2 38, PO2 136 Calcium 13.3 Magnesium 2.6 Troponin 86 with 120-minute 69 Lipase 70, AST 42 Urine 0-4 whites and 0-4 reds Serum ketones positive A&P Assessment and plan (1) Acute hypernatremia: Hydration started in the emergency department. Repeat BMP in 4 hours. We will try to lower sodium by about 4 in the next 24 hours. Status: Acute (2) Encephalopathy acute: Secondary to dehydration, consistent with metabolic encephalopathy Status: Acute (3) Dehydration: Rehydrate as noted Status: Acute (4) Hypercalcemia: May be secondary to dehydration. Repeat in the morning. Status: Acute (5) Elevated lactic acid level: Secondary to dehydration Status: Acute (6) Elevated troponin: Type II elevation. Status: Acute (7) Dementia: Will reassess, after treatment of acute encephalopathy/dehydration Status: Acute Additional A&P Information Full code Heparin for DVT prophylaxis Check pro calcitonin level When brought over to the ICU she was on oxygen. I have tapered this off and it does not appear she has an oxygen requirement. Should one be needed I would consider CT of her chest Attestations Medical Necessity Statement*: Will need greater than 2 midnight stay for evaluation and treatment of hyponatremia Critical Care Time: 45 minutes spent at bedtime and assessment of patient secondary to her hypernatremia requiring serial blood draws and high risk of decompensation secondary to this electrolyte abnormality she will be monitored in the ICU. This is already causing a significant acute encephalopathy. Coding Level of Care Code Acute Fixing Machine Operator for Chuy Baer Diagnoses Acute hypernatremia E87.0 Encephalopathy acute G93.40 Dehydration E86.0 Hypercalcemia E83.52 Elevated lactic acid level R79.89 Elevated troponin R79.89 Dementia F03.90
[2019-12-21 15:04] LABS: Lactic Acid level (Lactate) 2.2 mmol/L (0.5-2.2)
[2019-12-21] MEDS: heparin 5,000 unit/mL INJ 1 mL 5000 UNIT SUBCUT (15:57)
[2019-12-21 16:06] LABS: Procalcitonin 0.12 ng/mL (0-0.5)
--- NOTE | 2019-12-21 16:33 | PC.NURSE ---
Patient's mental status and level of cooperativeness during initial assessments is labile. She would sometimes refuse to answer questions, appear to ignore questions, willingly answer them by nodding, pull away from assessments and then moments later allow them.
--- NOTE | 2019-12-21 17:08 | PC.NURSE ---
Attempted to feed patient and assess swallowing ability. Pt drank one sip of fluids and appeared to tolerate well. refused additional po fluids. Patient ate one bite of dinner and refused any additional.
--- NOTE | 2019-12-21 17:22 | PC.NURSE ---
offered pt fluids and food, patient declined.
--- NOTE | 2019-12-21 17:37 | ECG_ITS ---
[facility] Test Date: 2019-12-21 Pat Name: Sola Juárez Department: Room: [facility] Gender: Female Charge Aide: : 1935 Requested By: Hanna Shields Order Number: [id number] Andreia MD: Jenny Zepeda M.D. Measurements Intervals [place] Rate: 87 P: 55 [place]: 141 QRS: 15 QRSD: 81 T: 64 QT: 355 QTc: 428 Interpretive Statements SINUS RHYTHM NONSPECIFIC T-WAVE ABNORMALITY Compared to ECG 12/21/2019 13:50:37 No significant changes Electronically Signed On 12-22-2019 20:35:28 CDT by Jenny Zepeda M.D. [id number]
[2019-12-21 17:46] LABS: Amphetamines Screen Urine Negative (Negative); Barbiturates Screen Urine Negative (Negative); Benzodiazepines Screen Urine Negative (Negative); Cocaine Screen Urine Negative (Negative); Opiate Screen Urine Negative (Negative); PCP Screen Urine Negative (Negative); THC Screen Urine Negative (Negative)
--- NOTE | 2019-12-21 18:02 | PC.NURSE ---
Patient is oriented to self, but still doesn't know where she is or the day. Has become more cooperative. will answer questions and allows assessments. I offered food and fluids again before removing meal tray, patient declined. I offered turning and repositioning, pt declined.
[2019-12-21 18:16] LABS: Anion Gap 14.8 (5-19); Blood Urea Nitrogen 67 mg/dL (8-23); Calcium 11.8 mg/dL (8.5-10.5); Carbon Dioxide 26 mmol/L (22-29); Chloride 120 mmol/L (98-107); Glucose 140 mg/dL (65-115); Osmolality Calculated 325 mOsm/kg (285-295); Potassium 3.8 mmol/L (3.5-5.1); Sodium 157 mmol/L (136-145)
[2019-12-21 18:18] LABS: Troponin 5 6HR 66.39 ng/L (0-10)
[2019-12-21] MEDS: sodium chloride 0.45% 1,000 ML 100 ML IV (19:11)
[2019-12-21 23:23] LABS: Anion Gap 11.7 (5-19); Blood Urea Nitrogen 60 mg/dL (8-23); Calcium 11.4 mg/dL (8.5-10.5); Carbon Dioxide 26 mmol/L (22-29); Chloride 122 mmol/L (98-107); Glucose 135 mg/dL (65-115); Osmolality Calculated 323 mOsm/kg (285-295); Potassium 3.7 mmol/L (3.5-5.1); Sodium 156 mmol/L (136-145)
[2019-12-22] VITALS (25 sets, daily range): BP systolic 115–167; BP diastolic 57–93; PULSE 57–83; RESP 11–18; TEMP 36.3–36.6; O2SAT 93–100
[2019-12-22] MEDS: sodium chloride 0.45% 1,000 ML 100 ML IV (04:06)
[2019-12-22] MEDS: heparin 5,000 unit/mL INJ 1 mL 5000 UNIT SUBCUT ×2 (04:06→16:04)
[2019-12-22 05:37] LABS: Basophils % 0.1 %; Hematocrit 47.9 % (37.0-47.0); Hemoglobin 14.4 g/dL (11.5-15.3); Lymphocytes % 10.6 %; Mean Corpuscular HGB Conc 30.1 g/dL (30.0-36.0); Mean Corpuscular Hemoglobin 30.9 pg (28.0-34.0); Mean Corpuscular Volume 102.8 fL (81-99); Mean Platelet Volume 13.9 fL (7.4-10.4); Monocytes # 0.8 10^3/uL (0.2-0.9); Monocytes % 8.7 %; Neutrophils # 7.56 10^3/uL (1.8-7.7); Neutrophils % 80.3 %; Nucleated Red Blood Cells % 0 %; Platelet Count 146 10^3/cmm (130-400); Positive M 1; Red Blood Count 4.66 10^6/uL (4.1-5.3); Red Cell Distribution Width 12.8 % (12.1-15.1); White Blood Count 9.4 10^3/uL (4.0-10.0)
--- NOTE | 2019-12-22 05:54 | PC.NURSE ---
SHIFT SUMMARY PT HAS REMAINED CONFUSED, PLEASANT FOR THE MOST PART. AT TIMES PT WANTS TO HIT AT STAFF. PT IS OREINTATED TO PERSON. PT IV REMAINS PATENT. DR NOTIFIED OF LOW URINE OUTPUT, NO NEW ORDERS. PT HAS BEEN TURNED EVERY 2-3 HOURS. PT HEELS HAVE BEEN FLOATED. BATH WAS GIVEN.
[2019-12-22 06:06] LABS: Alanine Aminotransferase 34 U/L (0-33); Albumin Level 3.7 g/dL (3.5-5.2); Alkaline Phosphatase 57 IU/L (35-105); Anion Gap 11.9 (5-19); Aspartate Amino Transferase 52 U/L (0-32); Blood Urea Nitrogen 57 mg/dL (8-23); Calcium 11.8 mg/dL (8.5-10.5); Carbon Dioxide 27 mmol/L (22-29); Chloride 121 mmol/L (98-107); Globulin 3.1 g/dL (1.3-4.6); Glucose 125 mg/dL (65-115); Magnesium 2.3 mg/dL (1.7-2.3); Osmolality Calculated 322 mOsm/kg (285-295); Potassium 3.9 mmol/L (3.5-5.1); Sodium 156 mmol/L (136-145); Total Bilirubin 1.3 mg/dL (0.15-1.2); Total Protein 6.8 g/dL (6.6-8.7)
[2019-12-22 06:12] LABS: Slide Review Slide Review Perform
[2019-12-22 08:23] LABS: Glucose Point of Care 98 mg/dL (70-110)
[2019-12-22] MEDS: dextrose 5% 1,000 ML 75 ML IV ×2 (09:10→21:59)
--- NOTE | 2019-12-22 09:10 | PC.NURSE ---
IVF change performed 10 minutes outside of window. Was with other pt for extended time while this pt slept.
--- NOTE | 2019-12-22 11:26 | PM.PN ---
Subjective Subjective: Interval history: Sola is confused this morning. However she denies any complaints. She can answer a few questions and does seem somewhat better than yesterday. We have not been able to get any family contacts to get further information. Medications: Reviewed: Yes Vitals/I&O/Wt Last Vital Signs Temp 97.8 F 12/22/19 03:09 Pulse 73 12/22/19 10:34 Resp 16 12/22/19 09:30 BP 146/84 12/22/19 09:30 Pulse Ox 99 12/22/19 10:34 12/21/19 12/22/19 12/22/19 22:59 06:59 14:59 Intake Total 0 / 1905.09 891.667 / 2796.757 511.667 / 511.667 Output Total 350 / 350 225 / 575 Balance -350 / 1555.09 666.667 / 2221.757 511.667 / 511.667 Weight last 48 hrs Weight 63.503 kg Physical Exam Narrative: EXAM NARRATIVE: General exam is no apparent distress, appears confused Cardiovascular regular rate and rhythm without murmur Lungs clear no wheezing or crackles Abdomen is soft with positive bowel sounds Extremities no cyanosis clubbing or edema Urinary Catheter Management^: Irwin: Cath Placed During This Visit: yes Reason for Continuing Indwelling Catheter: Accurate Measurement of Urinary Output in Critically Ill Patients Urinary Catheter Date of Insertion: 12/21/19 Urinary Catheter Time of Insertion: 11:50 Data : 12/22/19 04:43 12/22/19 04:43 Micro: Microbiology 12/21/19 11:56 Urine Culture - Preliminary Urine Catheterized 12/21/19 11:35 Blood Culture - Preliminary Blood SPECIMEN COLLECTED 12/21/19 11:38 Blood Culture - Preliminary Blood SPECIMEN COLLECTED A&P Assessment and plan (1) Acute hypernatremia: She is still significantly hypernatremic despite being on half-normal saline throughout the night. Changed to D5W. Repeat a BMP early this afternoon and determine course. Status: Acute (2) Encephalopathy acute: Secondary to dehydration, consistent with metabolic encephalopathy This has improved somewhat but I believe she has some underlying dementia that is significant as well. Status: Acute (3) Dehydration: She has been rehydrated. We will continue to follow closely. Status: Acute (4) Hypercalcemia: Significant elevation was due to dehydration. Repeat again tomorrow Check parathyroid hormone level. Status: Acute (5) Elevated lactic acid level: Secondary to dehydration Status: Acute (6) Elevated troponin: Type II elevation. Status: Acute (7) Dementia: Will reassess, after treatment of acute encephalopathy/dehydration. She will likely need nursing facility placement Status: Acute Additional A&P Information Transaminitis, not present on admission. Recheck tomorrow. Consider further evaluation if persists. Full code Heparin for DVT prophylaxis Antibiotics have been held. No evidence of infection. Procalcitonin level was normal. Likely transfer out of ICU this afternoon. Attestations Medical Necessity Statement*: Needs continued hospitalization for correction of electrolyte abnormalities. Coding Level of Care Code Acute Director Clinical Data for [facility] Diagnoses Acute hypernatremia E87.0 Encephalopathy acute G93.40 Dehydration E86.0 Hypercalcemia E83.52 Elevated lactic acid level R79.89 Elevated troponin R79.89 Dementia F03.90
[2019-12-22 14:40] LABS: Anion Gap 12.7 (5-19); Blood Urea Nitrogen 52 mg/dL (8-23); Calcium 11.4 mg/dL (8.5-10.5); Carbon Dioxide 26 mmol/L (22-29); Chloride 119 mmol/L (98-107); Glucose 131 mg/dL (65-115); Osmolality Calculated 318 mOsm/kg (285-295); Potassium 3.7 mmol/L (3.5-5.1); Sodium 154 mmol/L (136-145)
--- NOTE | 2019-12-22 16:47 | PC.PT ---
Attempted PT evaluation ?3 today, patient declined/refused participation ?3, not able to even get bed level evaluation due to complain of pain with light touch, bilateral lower extremities, unable to evaluate, will reattempt tomorrow
--- NOTE | 2019-12-22 19:35 | PC.NURSE ---
258 not available for pt's transfer yet. Report given to Jannette. scene shifter to transfer upon room availability.
[2019-12-22 22:19] LABS: Anion Gap 10.9 (5-19); Blood Urea Nitrogen 44 mg/dL (8-23); Carbon Dioxide 27 mmol/L (22-29); Chloride 116 mmol/L (98-107); Glucose 160 mg/dL (65-115); Osmolality Calculated 311 mOsm/kg (285-295); Potassium 3.9 mmol/L (3.5-5.1); Sodium 150 mmol/L (136-145)
[2019-12-23] VITALS: BP 154/80; PULSE 73; RESP 18; TEMP 36.4; O2SAT 93
[2019-12-23] MEDS: heparin 5,000 unit/mL INJ 1 mL 5000 UNIT SUBCUT ×2 (02:46→16:42)
[2019-12-23 04:00] VITALS: BP 151/80; PULSE 75; RESP 18; TEMP 36.8; O2SAT 93
[2019-12-23 06:26] LABS: Alanine Aminotransferase 47 U/L (0-33); Albumin Level 3.1 g/dL (3.5-5.2); Alkaline Phosphatase 53 IU/L (35-105); Aspartate Amino Transferase 56 U/L (0-32); Blood Urea Nitrogen 38 mg/dL (8-23); Calcium 10.7 mg/dL (8.5-10.5); Carbon Dioxide 26 mmol/L (22-29); Chloride 115 mmol/L (98-107); Globulin 2.6 g/dL (1.3-4.6); Glucose 176 mg/dL (65-115); Magnesium 2.1 mg/dL (1.7-2.3); Osmolality Calculated 306 mOsm/kg (285-295); Sodium 147 mmol/L (136-145); Total Protein 5.7 g/dL (6.6-8.7)
[2019-12-23 06:46] LABS: Anion Gap 9.7 (5-19); Potassium 3.7 mmol/L (3.5-5.1)
[2019-12-23 07:01] LABS: Calcium 11.2 mg/dL (8.5-10.5); Parathyroid Hormone 28.4 pg/mL (15-65)
[2019-12-23 07:38] VITALS: BP 138/74; PULSE 70; RESP 18; O2SAT 97
[2019-12-23 07:39] LABS: Basophils % 0.2 %; Eosinophils % 0.2 %; Hematocrit 40.1 % (37.0-47.0); Lymphocytes # 1.3 10^3/uL (0.8-4.8); Lymphocytes % 14.2 %; Mean Corpuscular HGB Conc 29.9 g/dL (30.0-36.0); Mean Corpuscular Hemoglobin 30.5 pg (28.0-34.0); Mean Corpuscular Volume 101.8 fL (81-99); Mean Platelet Volume 12.9 fL (7.4-10.4); Monocytes # 0.8 10^3/uL (0.2-0.9); Monocytes % 9.2 %; Neutrophils # 6.66 10^3/uL (1.8-7.7); Neutrophils % 75.3 %; Nucleated Red Blood Cells % 0 %; Platelet Count 123 10^3/cmm (130-400); Red Blood Count 3.94 10^6/uL (4.1-5.3); Red Cell Distribution Width 12.3 % (12.1-15.1); White Blood Count 8.9 10^3/uL (4.0-10.0)
[2019-12-23] MEDS: sodium chloride 0.45% 1,000 ML 75 ML IV ×2 (08:38→20:29)
[2019-12-23 11:18] VITALS: BP 150/72; PULSE 79; RESP 18; TEMP 36.1; O2SAT 99
--- NOTE | 2019-12-23 11:38 | P.PN_ITS ---
Subjective Subjective: Interval history: Sola is not very verbal with me. She will answer a few questions, but seems distant. She seems confused. Makes good eye contact. Medications: Reviewed: Yes Vitals/I&O/Wt Last Vital Signs Temp 97.0 F L 12/23/19 11:18 Pulse 79 12/23/19 11:18 Resp 18 12/23/19 11:18 BP 150/72 12/23/19 11:18 Pulse Ox 99 12/23/19 11:18 12/22/19 12/23/19 12/23/19 22:59 06:59 14:59 Intake Total 961.25 / 1492.917 Output Total 320 / 320 Balance 641.25 / 1172.917 Physical Exam Narrative: EXAM NARRATIVE: General exam is no apparent distress, appears confused Cardiovascular regular rate and rhythm without murmur Lungs clear no wheezing or crackles Abdomen is soft with positive bowel sounds Extremities no cyanosis clubbing or edema Urinary Catheter Management^: Irwin: Cath Placed During This Visit: yes Reason for Continuing Indwelling Catheter: Accurate Measurement of Urinary Output in Critically Ill Patients Urinary Catheter Date of Insertion: 12/21/19 Urinary Catheter Time of Insertion: 11:50 Data : 12/23/19 07:21 12/23/19 05:43 Micro: Microbiology 12/21/19 11:56 Urine Culture - Final Urine Catheterized 12/21/19 11:35 Blood Culture - Preliminary Blood NEGATIVE TO DATE 12/21/19 11:38 Blood Culture - Preliminary Blood NEGATIVE TO DATE A&P Assessment and plan (1) Acute hypernatremia: Hypernatremia has improved significantly. Changed to half-normal saline. Hopefully she will participate with speech therapy and we can initiate more of a diet. Status: Acute (2) Encephalopathy acute: Secondary to dehydration, consistent with metabolic encephalopathy This has improved somewhat but I believe she has some underlying dementia that is significant as well. At this point I do not believe she is safe to make her own decisions but will continue to evaluate on a daily basis. Check B12 level Status: Acute (3) Dehydration: Resolved Status: Acute (4) Hypercalcemia: Significant elevation was due to dehydration. Calcium levels improving. Parathyroid hormone was normal. Status: Acute (5) Elevated lactic acid level: Secondary to dehydration Status: Acute (6) Elevated troponin: Type II elevation. Status: Acute (7) Dementia: Continue to reassess. Likely needs facility placement. Status: Acute Additional A&P Information Transaminitis, not present on admission. Unchanged, mild Mild thrombocytopenia Full code Heparin for DVT prophylaxis Attestations Medical Necessity Statement*: Needs continued hospital stay for close monitoring of sodium, as well as encephalopathy that has persisted. Coding Level of Care Code Acute Surgical Sales Representative for [facility] Diagnoses Acute hypernatremia E87.0 Encephalopathy acute G93.40 Dehydration E86.0 Hypercalcemia E83.52 Elevated lactic acid level R79.89 Elevated troponin R79.89 Dementia F03.90
[2019-12-23 12:39] LABS: Vitamin B12 1279 pg/mL (232-1245)
--- NOTE | 2019-12-23 12:50 | PC.PT ---
pt again refuses any participation with attempted PT Evaluation X 2 today
[2019-12-23 14:09] LABS: Anion Gap 9.4 (5-19); Blood Urea Nitrogen 31 mg/dL (8-23); Calcium 10.6 mg/dL (8.5-10.5); Carbon Dioxide 29 mmol/L (22-29); Chloride 111 mmol/L (98-107); Glucose 123 mg/dL (65-115); Osmolality Calculated 301 mOsm/kg (285-295); Potassium 3.4 mmol/L (3.5-5.1); Sodium 146 mmol/L (136-145)
[2019-12-23 16:00] VITALS: BP 148/69; PULSE 62; RESP 18; TEMP 36.6; O2SAT 95
[2019-12-23] MEDS: potassium chloride oral liq 20 mEq/15 mL UDC 40 MEQ PO (16:42)
--- NOTE | 2019-12-23 17:13 | PC.SLP ---
The pt is still refusing to eat, participate in evaluation. The pt continues to be very confused, with limited interaction.
[2019-12-23 19:57] VITALS: BP 155/82; PULSE 65; RESP 18; TEMP 37.2; O2SAT 99
[2019-12-24] VITALS: BP 155/73; PULSE 67; RESP 18; TEMP 37.1; O2SAT 99
[2019-12-24 03:30] LABS: Basophils % 0.1 %; Eosinophils % 0.5 %; Hematocrit 38.3 % (37.0-47.0); Hemoglobin 11.9 g/dL (11.5-15.3); Lymphocytes # 1.1 10^3/uL (0.8-4.8); Lymphocytes % 14.6 %; Mean Corpuscular HGB Conc 31.1 g/dL (30.0-36.0); Mean Corpuscular Hemoglobin 30.4 pg (28.0-34.0); Mean Corpuscular Volume 97.7 fL (81-99); Monocytes # 0.7 10^3/uL (0.2-0.9); Monocytes % 9.1 %; Neutrophils # 5.57 10^3/uL (1.8-7.7); Neutrophils % 74.6 %; Nucleated Red Blood Cells % 0 %; Platelet Count 123 10^3/cmm (130-400); Red Blood Count 3.92 10^6/uL (4.1-5.3); Red Cell Distribution Width 12.3 % (12.1-15.1); White Blood Count 7.5 10^3/uL (4.0-10.0)
[2019-12-24] MEDS: heparin 5,000 unit/mL INJ 1 mL 5000 UNIT SUBCUT ×2 (03:42→16:07)
[2019-12-24 03:57] LABS: Alanine Aminotransferase 60 U/L (0-33); Albumin Level 2.8 g/dL (3.5-5.2); Alkaline Phosphatase 59 IU/L (35-105); Anion Gap 10.8 (5-19); Aspartate Amino Transferase 60 U/L (0-32); Blood Urea Nitrogen 28 mg/dL (8-23); Calcium 10.7 mg/dL (8.5-10.5); Carbon Dioxide 25 mmol/L (22-29); Chloride 113 mmol/L (98-107); Globulin 2.7 g/dL (1.3-4.6); Glucose 118 mg/dL (65-115); Magnesium 1.8 mg/dL (1.7-2.3); Osmolality Calculated 298 mOsm/kg (285-295); Potassium 3.8 mmol/L (3.5-5.1); Sodium 145 mmol/L (136-145); Total Bilirubin 0.8 mg/dL (0.15-1.2); Total Protein 5.5 g/dL (6.6-8.7)
[2019-12-24 03:58] LABS: Ammonia 18 umol/L (11-51)
[2019-12-24 04:00] VITALS: BP 144/76; PULSE 68; RESP 18; TEMP 37.2; O2SAT 99
[2019-12-24 07:31] VITALS: BP 134/70; PULSE 62; RESP 18; TEMP 37.1; O2SAT 95
--- NOTE | 2019-12-24 09:14 | P.PN_ITS ---
Subjective Subjective: Interval history: When I entered the room she is chewing on a strawberry. She makes eye contact, and says a few words. She is more vocal than yesterday. When asked if she is depressed she nods her head yes. Medications: Reviewed: Yes Vitals/I&O/Wt Last Vital Signs Temp 98.7 F 12/24/19 07:31 Pulse 62 12/24/19 07:31 Resp 18 12/24/19 07:31 BP 134/70 12/24/19 07:31 Pulse Ox 95 12/24/19 07:31 12/23/19 12/24/19 12/24/19 22:59 06:59 14:59 Intake Total 2248.75 / 2248.75 Output Total 550 / 550 160 / 710 Balance 1698.75 / 1698.75 -160 / 1538.75 Physical Exam Narrative: EXAM NARRATIVE: General exam is no apparent distress, more interactive and makes good eye contact. Cardiovascular regular rate and rhythm without murmur Lungs clear no wheezing or crackles Abdomen is soft with positive bowel sounds Extremities no cyanosis clubbing or edema Urinary Catheter Management^: Irwin: Cath Placed During This Visit: yes Reason for Continuing Indwelling Catheter: Acute Urinary Retention or Obstruction Urinary Catheter Date of Insertion: 12/21/19 Urinary Catheter Time of Insertion: 11:50 Data : 12/24/19 03:04 12/24/19 03:04 Micro: Microbiology 12/21/19 11:56 Urine Culture - Final Urine Catheterized A&P Assessment and plan (1) Acute hypernatremia: This is resolved. Continue fluids currently. Reduce fluids when she is taking p.o. better Status: Acute (2) Encephalopathy acute: This has improved. She does visit some with me but is very reserved, saying very few words. She is very slow to respond, but seems to reflect on her situation and does admit to some depression. CT head demonstrates no CVA. B12, TSH are normal. She is receiving thiamine IV. Status: Acute (3) Dehydration: Resolved Status: Acute (4) Hypercalcemia: Significant elevation was due to dehydration. Calcium level significantly improved. Parathyroid hormone was normal. Status: Acute (5) Elevated lactic acid level: Secondary to dehydration Status: Acute (6) Elevated troponin: Type II elevation. Status: Acute (7) Dementia: Continue to reassess. Likely needs facility placement. Status: Acute Additional A&P Information Transaminitis, not present on admission. Unchanged, mild. Ammonia level normal. Mild thrombocytopenia Full code Heparin for DVT prophylaxis Attestations Medical Necessity Statement*: Needs continued hospitalization, pending improved oral intake to prevent dehydration and readmission as well as evaluation for placement. Coding Level of Care Code Acute Manager Community Development for [facility] Diagnoses Acute hypernatremia E87.0 Encephalopathy acute G93.40 Dehydration E86.0 Hypercalcemia E83.52 Elevated lactic acid level R79.89 Elevated troponin R79.89 Dementia F03.90
[2019-12-24] MEDS: sodium chloride 0.45% 1,000 ML 75 ML IV ×2 (09:16→22:29)
[2019-12-24] MEDS: sertraline 50 mg Tablet 25 MG PO (11:41)
[2019-12-24 11:55] VITALS: BP 154/89; PULSE 71; RESP 18; TEMP 36.9; O2SAT 100
--- NOTE | 2019-12-24 13:47 | PC.SOCIAL ---
IMM Not Given Patient is confused and greater than 48 hrs from discharge. SS will need to follow up to deliver IMM.
--- NOTE | 2019-12-24 14:50 | PM.PSYCN ---
Providers/Reason for Consult Consulting Physican/Specialty*: Sunil Omer MD. Psychiatry. Reason for Consult*: Capacity/informed consent. Attending Physician: Joseph Montoya MD Primary Care Provider: Felice Xavier MD Psych Consult HPI History of Present Illness Sola Juárez is a 84 year old female who presented to the emergency room with EMS after she was found in her bed covered in urine and feces, and unable to get out of the bed. She was not able to answer questions, then or in the emergency room. She was not able to be of informational assistance to the emergency room at all. It was believed, at that time on 12-20, that she had been seen five days before, as normal, but no time sense. She denied pain or any other issues. They reviewed charts but found nothing other than dementia, but nothing else of assistance was in the medical records. She was admitted to the ICU for definitive treatment of her issues. She was then transferred to medical-surgical when they were able to determine she was safe for the floor. Today, she presents and is essentially a non-factor as an informant. She is laying in the room, comfortable, sort of staring off. She was mostly willing to nod her head up and down and side to side, in an apparent yes or no, but because of her inability to give any verbal confirmations, it is actually unclear whether or not she understands any of the questions that have been asked, or if this is just a rote response, to some degree, that she is giving secondary to a life time of answering questions. She was able, at one point, to identify that her name is Adeola. At another point, she was able to give me the month and date of her , and she answered yes to questions about whether she had kids, and things like that, but there is really no way to confirm if what she was saying is accurate. Ultimately, she was taking a considerable amount of time, even before she answered those questions. One might ask a question and there would be a five to seven second delay, then sometimes an apparent answer came, and other times it did not. She did not answer any questions of orientation, questions of date, time, place, year. Essentially there was no information to be gained through the interview. Treatment team embarked on a dementia work up with no pertinent positives. She had hypernatremia which is correcting. There is really no clear indication of why the altered mental status. Her psychiatric history, substance abuse, and all other areas of enquiry were unable to be obtained, because she could not or would not answer questions. At this point, we do not have any collateral information as to what normal looks like, but we will seek that out to have a sense of what baseline is. But my understanding is she was living independently. Meds Current Medications: Current Medications Generic Name Dose Route Start Last Admin Trade Name Jenelle PRN Reason Stop Dose Admin Heparin Sodium (Be ef Lung) 5,000 unit 12/21/19 15:30 12/25/19 04:04 Heparin SUBCUT 5,000 unit Q12H YFN Administration Sodium Chloride 1,000 mls @ 75 ml s/hr 12/23/19 07:15 12/24/19 22:29 Sodium Chloride 0.45% IV 75 mls/hr .[id number] YFN Administration Sertraline HCl 25 mg 12/24/19 09:15 12/24/19 11:41 Zoloft PO 25 mg DAILY YFN Administration Thiamine HCl 100 mg 12/24/19 09:00 12/24/19 09:33 Vitamin B-1 IV 100 mg DAILY YFN Administration PFSH NPU PFSH: Medical History Dementia Social History Smoking and tobacco status: never smoked Mental Status Exam MSE Comments: This is a well-nourished, well-developed, elderly, white female, in a hospital gown, with adequate grooming and limited eye contact. No abnormal movements, except for profound psychomotor retardation. Uncooperative with exam in no acute distress. Speech was essentially absent, except for the two responses of her name and her date and month of , and that was significantly decreased volume. Mood not described; affect flat and subdued. Thought process, linear. Thought content: did not answer questions but did not demonstrate self-directed or outwardly directed aggression; she did not appear to be attending to internal stimuli. Attention and concentration were impaired, and memory was unable to be obtained, but none were formally tested. She is alert but without orientation. Insight and judgment are impaired. Vitals/I&O/Wt Last Vital Signs Temp 98.2 F 12/25/19 04:00 Pulse 82 12/25/19 04:00 Resp 18 12/25/19 04:00 BP 128/84 12/25/19 04:00 Pulse Ox 95 12/25/19 04:00 12/24/19 12/24/19 12/25/19 14:59 22:59 06:59 Intake Total 1198.75 / 1198.75 991.25 / 2190.00 Output Total 700 / 700 Balance 1198.75 / 1198.75 991.25 / 2190.00 -700 / 1490.00 Physical Exam Urinary Catheter Management^: Irwin: Cath Placed During This Visit: yes Reason for Continuing Indwelling Catheter: Acute Urinary Retention or Obstruction Urinary Catheter Date of Insertion: 12/21/19 Urinary Catheter Time of Insertion: 11:50 A&P Assessment and plan (1) Encephalopathy acute: Status: Acute (2) Dementia: Status: Acute Additional A&P Information This is an 84 year old, white female, who presents with altered mental status with no real sense of what her previous level of functioning was. RECOMMENDATION AND PLAN: Continue current medication. Continue to monitor for improvement. Will look for collateral information regarding baseline. Will continue to follow. Patient clearly lacks capacity for decision-making at this time. Attestations NPU Medical Necessity Statement*: N/A. Please see primary team report for medical necessity. Will continue to evaluate for any need for inpatient geriatric psychiatric services. Coding Level of Care Code Acute Analyst Market Intelligence for [facility] Diagnoses Encephalopathy acute G93.40 Dementia F03.90
[2019-12-24 16:00] VITALS: BP 128/73; PULSE 73; RESP 18; TEMP 36.3; O2SAT 95
[2019-12-24 20:00] VITALS: BP 138/77; PULSE 75; RESP 16; TEMP 36.4; O2SAT 95
[2019-12-25] VITALS: BP 133/78; PULSE 76; RESP 17; TEMP 36.6; O2SAT 94
[2019-12-25 04:00] VITALS: BP 128/84; PULSE 82; RESP 18; TEMP 36.8; O2SAT 95
[2019-12-25] MEDS: heparin 5,000 unit/mL INJ 1 mL 5000 UNIT SUBCUT ×2 (04:04→16:15)
[2019-12-25 06:25] LABS: Anion Gap 10.4 (5-19); Blood Urea Nitrogen 20 mg/dL (8-23); Calcium 10.2 mg/dL (8.5-10.5); Carbon Dioxide 25 mmol/L (22-29); Chloride 105 mmol/L (98-107); Glucose 105 mg/dL (65-115); Osmolality Calculated 281 mOsm/kg (285-295); Potassium 3.4 mmol/L (3.5-5.1); Sodium 137 mmol/L (136-145)
[2019-12-25 07:43] VITALS: BP 178/83; PULSE 74; RESP 18; TEMP 36.9; O2SAT 96
[2019-12-25] MEDS: potassium chloride oral liq 20 mEq/15 mL UDC 40 MEQ PO (08:38)
[2019-12-25] MEDS: sertraline 50 mg Tablet 25 MG PO (08:39)
--- NOTE | 2019-12-25 09:38 | PM.PN ---
Subjective Subjective: Interval history: Sola answers a few questions and is more verbal than yesterday. Denies any specific pain. Comments out of the blue during visiting that she needs another 1 of those, points to, but cannot name the TV that she indicates. Medications: Reviewed: Yes Vitals/I&O/Wt Last Vital Signs Temp 98.5 F 12/25/19 07:43 Pulse 74 12/25/19 07:43 Resp 18 12/25/19 07:43 BP 178/83 12/25/19 07:43 Pulse Ox 96 12/25/19 07:43 12/24/19 12/25/19 12/25/19 22:59 06:59 14:59 Intake Total 991.25 / 2190.00 Output Total 700 / 700 Balance 991.25 / 2190.00 -700 / 1490.00 Physical Exam Narrative: EXAM NARRATIVE: General exam is no apparent distress, more interactive and makes good eye contact. Confusion present Cardiovascular regular rate and rhythm without murmur Lungs clear no wheezing or crackles Abdomen is soft with positive bowel sounds Extremities no cyanosis clubbing or edema Urinary Catheter Management^: Irwin: Cath Placed During This Visit: yes Reason for Continuing Indwelling Catheter: Acute Urinary Retention or Obstruction Urinary Catheter Date of Insertion: 12/21/19 Urinary Catheter Time of Insertion: 11:50 Data : 12/24/19 03:04 12/25/19 05:15 A&P Assessment and plan (1) Acute hypernatremia: This is resolved. Reduce fluids. I will see if she can keep yourself hydrated. Status: Acute (2) Encephalopathy acute: This has improved. CT head demonstrates no CVA. B12, TSH are normal. She is receiving thiamine IV.. Change this to p.o. Status: Acute (3) Dehydration: Resolved Status: Acute (4) Hypercalcemia: Significant elevation was due to dehydration. Calcium level now normal. Parathyroid hormone was normal. Status: Acute (5) Elevated lactic acid level: Secondary to dehydration Status: Acute (6) Elevated troponin: Type II elevation. Status: Acute (7) Dementia: Continue to reassess. Likely needs facility placement. Psychiatry has been consulted Status: Acute Additional A&P Information Transaminitis, not present on admission. Unchanged, mild. Ammonia level normal. Mild thrombocytopenia Mild hypokalemia, supplement Zoloft started yesterday. Full code Heparin for DVT prophylaxis Attestations Medical Necessity Statement*: Needs continued hospital stay, for close follow-up of hypernatremia pending placement. Coding Level of Care Code Acute Mechanical Spreader Operator for [facility] Diagnoses Acute hypernatremia E87.0 Encephalopathy acute G93.40 Dehydration E86.0 Hypercalcemia E83.52 Elevated lactic acid level R79.89 Elevated troponin R79.89 Dementia F03.90
[2019-12-25] MEDS: sodium chloride 0.45% 1,000 ML 75 ML IV (10:56)
[2019-12-25 11:58] VITALS: BP 166/54; PULSE 95; RESP 16; TEMP 36.6; O2SAT 90
--- NOTE | 2019-12-25 13:08 | P.PN_ITS ---
Subjective NPU Subjective: Interval history: Adeola presents today a little more verbal, but still lacking the ability to have the normal give and take of conversation. She answered some questions with more words today than she had yesterday, but would say that she needed a, and then pause, and tap both hands on her blanket, and never come to the conclusion of the statement. Then we would reset the questioning, and she did that multiple times, without ever coming to a conclusion, and then when I tried to insert a multiple choice answer, she never agreed with what I supposed she was in need of. Nursing staff reports that she is eating better and being a little more active and interactive. Mental Status Exam MSE Comments: This is a well-nourished, well-developed, elderly, white female, in a hospital gown, with adequate grooming and limited eye contact. No abnormal movements, except for significant psychomotor retardation. Uncooperative with exam in no acute distress. Speech was essentially absent, but more than yesterday, with decreased rate and volume. Mood not described; affect flat and subdued. Thought process, linear. Thought content: did not answer questions but did not demonstrate self-directed or outwardly directed aggression; she did not appear to be attending to internal stimuli. Attention and concentration were impaired, and memory was unable to be obtained, but none were formally tested. She is alert but without orientation. Insight and judgment are impaired. Vitals/I&O/Wt Last Vital Signs Temp 97.8 F 12/25/19 11:58 Pulse 95 12/25/19 11:58 Resp 16 12/25/19 11:58 BP 166/54 12/25/19 11:58 Pulse Ox 90 12/25/19 11:58 12/25/19 22:59 Intake Total 873.75 / 2227.50 Output Total 900 / 900 Balance -26.25 / 1327.50 Physical Exam Urinary Catheter Management^: Irwin: Cath Placed During This Visit: yes Reason for Continuing Indwelling Catheter: Acute Urinary Retention or Obstruct ion Urinary Catheter Date of Insertion: 12/21/19 Urinary Catheter Time of Insertion: 11:50 Data NPU : 12/24/19 03:04 12/26/19 05:28 A&P Additional A&P Information (1) Encephalopathy acute: (2) Dementia: This is an 84 year old, white female, who presents with altered mental status with no real sense of what her previous level of functioning was. RECOMMENDATION AND PLAN: Continue current medication. Continue to monitor for improvement. Will look for collateral information regarding baseline. Will continue to follow. Patient clearly lacks capacity for decision-making at this time. Attestations NPU Medical Necessity Statement*: N/A. Please see primary team report for medical necessity. Will continue to evaluate for any need for inpatient geriatric psychiatric services. Coding Level of Care Code Acute Poultry Inseminator for [facility]
[2019-12-25 15:56] VITALS: BP 153/78; PULSE 73; RESP 18; TEMP 36.5; O2SAT 96
--- NOTE | 2019-12-25 18:10 | PC.SLP ---
Patient was unwilling to participate in her speech therapy session to determine if she could tolerate a diet upgrade.
[2019-12-25 20:00] VITALS: BP 148/75; PULSE 76; RESP 17; TEMP 36.6; O2SAT 95
[2019-12-26] VITALS: BP 108/61; PULSE 82; RESP 16; TEMP 36.9; O2SAT 93
[2019-12-26] MEDS: sodium chloride 0.45% 1,000 ML 30 ML IV (03:07)
[2019-12-26] MEDS: heparin 5,000 unit/mL INJ 1 mL 5000 UNIT SUBCUT ×2 (03:08→14:46)
[2019-12-26 04:00] VITALS: BP 113/74; PULSE 78; RESP 17; TEMP 36.8; O2SAT 93
--- NOTE | 2019-12-26 06:03 | PC.NURSE ---
SHIFT SUMMARY Did not sleep much first part of night then rested better second half. Is confused. Sometimes will not answer questions asked but will make a random statement. Moves arms and legs but has not followed instructions for heel, knee, akins maneuver or finger to nose movements with neurochecks. Has been repositioned. Usually tries to refuse and says she doesn't want to be turned. Does not understand reasoning for repositioning. Good urine output from Irwin this shift. IV infusing at 30ml/hr rate.
[2019-12-26 06:33] LABS: Anion Gap 9.7 (5-19); Blood Urea Nitrogen 11 mg/dL (8-23); Calcium 9.8 mg/dL (8.5-10.5); Carbon Dioxide 25 mmol/L (22-29); Chloride 104 mmol/L (98-107); Glucose 100 mg/dL (65-115); Osmolality Calculated 276 mOsm/kg (285-295); Potassium 3.7 mmol/L (3.5-5.1); Sodium 135 mmol/L (136-145)
[2019-12-26 07:50] VITALS: BP 160/81; PULSE 67; RESP 16; TEMP 37.2; O2SAT 98
[2019-12-26] MEDS: sertraline 50 mg Tablet 25 MG PO (09:25)
--- NOTE | 2019-12-26 09:57 | P.PN_ITS ---
Subjective Subjective: Interval history: Sola says hello when I go in the room. Medications: Reviewed: Yes Vitals/I&O/Wt Last Vital Signs Temp 98.9 F 12/26/19 07:50 Pulse 67 12/26/19 07:50 Resp 16 12/26/19 07:50 BP 160/81 12/26/19 07:50 Pulse Ox 98 12/26/19 07:50 12/25/19 12/26/19 12/26/19 22:59 06:59 14:59 Intake Total 873.75 / 2227.50 256 / 2483.50 Output Total 900 / 900 1200 / 2100 Balance -26.25 / 1327.50 -944 / 383.50 Physical Exam Narrative: EXAM NARRATIVE: General exam no apparent distress, slow to respond, still confused. Cardiovascular regular rate and rhythm without murmur Lungs clear Abdomen is soft with positive bowel sounds Extremities no cyanosis clubbing or edema Urinary Catheter Management^: Irwin: Cath Placed During This Visit: yes Reason for Continuing Indwelling Catheter: Acute Urinary Retention or Obstruction Urinary Catheter Date of Insertion: 12/21/19 Urinary Catheter Time of Insertion: 11:50 Data : 12/24/19 03:04 12/26/19 05:28 A&P Assessment and plan (1) Acute hypernatremia: This is resolved. Discontinue fluids I will see if she can keep yourself hydrated. Status: Acute (2) Encephalopathy acute: This has improved. CT head demonstrates no CVA. B12, TSH are normal. She is receiving thiamine by mouth Status: Acute (3) Dehydration: Resolved Status: Acute (4) Hypercalcemia: Significant elevation was due to dehydration. Calcium level now normal. Parathyroid hormone was normal. Status: Acute (5) Elevated lactic acid level: Secondary to dehydration Status: Acute (6) Elevated troponin: Type II elevation. Status: Acute (7) Dementia: Continue to reassess. Likely needs facility placement. Psychiatry has been consulted Status: Acute Additional A&P Information Transaminitis, not present on admission. Unchanged, mild. Ammonia level normal. Mild thrombocytopenia Mild hypokalemia, supplement Zoloft started for depression Full code Heparin for DVT prophylaxis No need for laboratory tomorrow Await placement Await psychiatric consultation. Patient will likely need guardianship. Attestations Medical Necessity Statement*: Needs continued hospitalization pending placement. Coding Level of Care Code Acute Sinter Press Operator for [facility] Diagnoses Acute hypernatremia E87.0 Encephalopathy acute G93.40 Dehydration E86.0 Hypercalcemia E83.52 Elevated lactic acid level R79.89 Elevated troponin R79.89 Dementia F03.90
[2019-12-26 11:35] VITALS: BP 139/82; PULSE 72; RESP 16; TEMP 36.6; O2SAT 95
--- NOTE | 2019-12-26 13:25 | PC.SOCIAL ---
IMM Not Update IMM not updated r/t patient's medical course at this time. Patient will not be discharged within the next 48 hours.
[2019-12-26 15:28] VITALS: BP 146/73; PULSE 68; RESP 16; TEMP 36.7; O2SAT 94
--- NOTE | 2019-12-26 17:14 | P.PN_ITS ---
Subjective NPU Subjective: Interval history: Sola presents today with continued progress in her vocalizations but continued limited effectiveness of her communication. Today she had more words than they before at times actually giving appropriate vocal responses to my retorts. At one point I asked the question and she responded that you wouldn't understand even if I told you. To which I responded why? And she said because you wouldn't know where to find the thing. Again she spoke in vague terms like things in still with tail off and seemed to lose where things are and not fully answer questions and still is not oriented or aware of what is going on but it makes one wonder if there is still more improvement that could occur. Mental Status Exam MSE Comments: This is a well-nourished, well-developed, elderly, white female, in a hospital gown, with adequate grooming and improved eye contact. No abnormal movements, except for significant psychomotor retardation. More cooperative with exam in no acute distress. Speech still was limited with limited spontaneous verbalizations, but more than yesterday, with decreased rate and volume. Mood not described; affect flat and subdued. Thought process, linear. Thought content: did not answer questions but did not demonstrate self-directed or outwardly directed aggression; she did not appear to be attending to internal stimuli. Attention and concentration were impaired, and memory was unable to be obtained, but none were formally tested. She is alert but without orientation. Insight and judgment are impaired. Vitals/I&O/Wt Last Vital Signs Temp 98.0 F 12/26/19 15:28 Pulse 68 12/26/19 15:28 Resp 16 12/26/19 15:28 BP 146/73 12/26/19 15:28 Pulse Ox 94 12/26/19 15:28 12/26/19 12/26/19 12/26/19 06:59 14:59 22:59 Intake Total 256 / 2483.50 480 / 480 Output Total 1200 / 2100 Balance -944 / 383.50 480 / 480 Physical Exam Urinary Catheter Management^: Irwin: Cath Placed During This Visit: yes, but has since been removed by the nurse Reason for Continuing Indwelling Catheter: Acute Urinary Retention or Obstruction Urinary Catheter Date of Insertion: 12/21/19 Urinary Catheter Time of Insertion: 11:50 Date Urinary Catheter Removed: 12/26/19 Time Urinary Catheter Discontinued: 10:40 Data NPU : 12/24/19 03:04 12/26/19 05:28 Micro: Microbiology 12/21/19 11:35 Blood Culture - Final Blood NO GROWTH AFTER 5 DAYS 12/21/19 11:38 Blood Culture - Final Blood NO GROWTH AFTER 5 DAYS Microbiology 12/21/19 11:35 Blood Blood Culture - Final NO GROWTH AFTER 5 DAYS 12/21/19 11:38 Blood Blood Culture - Final NO GROWTH AFTER 5 DAYS A&P Additional A&P Information (1) Encephalopathy acute: (2) Dementia: This is an 84 year old, white female, who presents with altered mental status with no real sense of what her previous level of functioning was. RECOMMENDATION AND PLAN: Continue current medication. Continue to monitor for improvement. Will look for collateral information regarding baseline. Will continue to follow. Patient clearly lacks capacity for decision-making at this time. Attestations NPU Medical Necessity Statement*: N/A. Please see primary team report for medical necessity. Will continue to evaluate for any need for inpatient geriatric psychiatric services. Coding Level of Care Code Acute Solar Energy Installation Manager for Chuy Baer
[2019-12-26 19:41] VITALS: BP 155/87; PULSE 76; RESP 17; TEMP 36.9; O2SAT 96
[2019-12-27] VITALS (7 sets, daily range): BP systolic 145–167; BP diastolic 61–93; PULSE 59–88; RESP 17–24; TEMP 36.6–37; O2SAT 93–96
[2019-12-27] MEDS: heparin 5,000 unit/mL INJ 1 mL 5000 UNIT SUBCUT ×2 (04:20→17:37)
[2019-12-27] MEDS: sertraline 50 mg Tablet 25 MG PO (08:08)
[2019-12-27] MEDS: thiamine 100 mg Tablet PO (08:08)
--- NOTE | 2019-12-27 14:28 | PM.PN ---
Subjective Subjective: Interval history: At the time of my visit she is working on eating a pudding. Somewhat sluggish responses, but she denies any complaints when asked. She cannot say where she is, although takes a while to consider. Pointing to her surroundings, states I am here . Does not know current date. Vitals/I&O/Wt Last Vital Signs Temp 98.4 F 12/27/19 08:00 Pulse 82 12/27/19 11:56 Resp 18 12/27/19 11:56 BP 145/80 12/27/19 11:56 Pulse Ox 93 12/27/19 11:56 12/26/19 12/27/19 12/27/19 22:59 06:59 14:59 Intake Total 240 / 240 Balance 240 / 240 Physical Exam Const: COMMON NORMALS: no acute distress; negative for patient oriented x3 GENERAL APPEARANCE: frail appearing HENMT: COMMON NORMALS: oropharynx normal Neck/C-Spine: COMMON NORMALS: no JVD Resp: COMMON NORMALS: normal respiratory effort and clear to auscultation bilaterally AUSCULTATION: clear to auscultation bilaterally Cardio: COMMON NORMALS: no JVD, regular rhythm, S1 normal heart sound present, S2 normal heart sound present and No murmurs present (Cardio) RHYTHM: regular rhythm HEART SOUNDS: S1 normal heart sound present and S2 normal heart sound present GI: COMMON NORMALS: Normal to inspection, nondistended, normoactive bowel sounds present, Soft to palpation and non-tender PALPATION: Yes Soft to palpation Extremity: COMMON NORMALS: no joint enlargement and no pedal edema Neuro: COMMON NORMALS: moves all extremities; negative for patient oriented x3 Skin: COMMON NORMALS: no rashes or lesions noted GENERAL SKIN EXAM: no rashes or lesions noted Urinary Catheter Management^: Irwin: Cath Placed During This Visit: yes, but has since been removed by the nurse Reason for Continuing Indwelling Catheter: Decision to DC Catheter Urinary Catheter Date of Insertion: 12/21/19 Urinary Catheter Time of Insertion: 11:50 Date Urinary Catheter Removed: 12/26/19 Time Urinary Catheter Discontinued: 10:40 Data : 12/24/19 03:04 12/26/19 05:28 Micro: Microbiology 12/21/19 11:35 Blood Culture - Final Blood NO GROWTH AFTER 5 DAYS 12/21/19 11:38 Blood Culture - Final Blood NO GROWTH AFTER 5 DAYS A&P Assessment and plan (1) Acute hypernatremia: Improved. Encourage oral nutrition and hydration. Status: Acute (2) Encephalopathy acute: This has improved. Baseline is unknown. She is awake and alert, cooperative, takes a while to consider her answers, not oriented to place or date. Says she is feeling all right. Is not sure why she is here. CT head demonstrates no CVA. B12, TSH are normal. She is receiving thiamine by mouth Status: Acute (3) Dehydration: Resolved Status: Acute (4) Hypercalcemia: Significant elevation was due to dehydration. Resolved. Would monitor, and if recurrence may need additional follow-up/investigation. Calcium level now normal. Parathyroid hormone was normal. Status: Acute (5) Elevated lactic acid level: Secondary to dehydration Status: Acute (6) Elevated troponin: Type II elevation. Status: Acute (7) Dementia: Continue to reassess. Likely needs facility placement. Psychiatry assessment appreciated. Appreciate also case management assistance with disposition planning, arrangements for guardianship. Status: Acute Additional A&P Information Transaminitis, not present on admission. Unchanged, mild. Ammonia level normal. Recheck. Mild thrombocytopenia. Reassess. Mild hypokalemia, supplemented Zoloft started for depression Full code Heparin for DVT prophylaxis Await placement Await psychiatric consultation. Patient will likely need guardianship. Attestations Medical Necessity Statement*: Continue admission for management of cognitive dysfunction, suspected dementia, disposition arrangements. Coding Level of Care Code Acute Risk Management Internship for [facility] Fwd Diagnoses Acute hypernatremia E87.0 Encephalopathy acute G93.40 Dehydration E86.0 Hypercalcemia E83.52 Elevated lactic acid level R79.89 Elevated troponin R79.89 Dementia F03.90
--- NOTE | 2019-12-27 14:41 | PM.NPN ---
Subjective NPU Subjective: Interval history: Sola continues to have slow but notable progress in her ability to converse and participate. Today she was more vocal. She continued to have times where she would begin a sentence and then trail off in confusion about what she was going to say, but in myah, short interactions, she was generally able to maintain the conversation. We had a very short discussion wherein she was able to respond to a couple questions. She still has significant disability, but seemed brighter and even smiled a couple of times during the interaction. Mental Status Exam MSE Comments: This is a well-nourished, well-developed, elderly, white female, in a hospital gown, with adequate grooming and improved eye contact. No abnormal movements, except for significant psychomotor retardation. More cooperative with exam in no acute distress. Speech still was limited with limited spontaneous verbalizations, but more than yesterday, with decreased rate and volume. Mood described as OK; affect flat and subdued. Thought process, linear. Thought content: did not answer questions but did not demonstrate self-directed or outwardly directed aggression; she did not appear to be attending to internal stimuli. Attention and concentration were impaired, but improving, and memory was unable to be obtained, but none were formally tested. She is alert but without orientation. Insight and judgment are impaired. Vitals/I&O/Wt Last Vital Signs Temp 98.4 F 12/27/19 08:00 Pulse 83 12/27/19 08:00 Resp 20 H 12/27/19 08:00 BP 159/83 12/27/19 08:00 Pulse Ox 95 12/27/19 08:00 12/27/19 14:59 Intake Total 240 / 240 Output Total Balance 240 / 240 Physical Exam Urinary Catheter Management^: Irwin: Cath Placed During This Visit: yes, but has since been removed by the nurse Reason for Continuing Indwelling Catheter: Decision to DC Catheter Urinary Catheter Date of Insertion: 12/21/19 Urinary Catheter Time of Insertion: 11:50 Date Urinary Catheter Removed: 12/26/19 Time Urinary Catheter Discontinued: 10:40 Data NPU : 12/24/19 03:04 12/26/19 05:28 A&P Additional A&P Information (1) Encephalopathy acute: (2) Dementia: This is an 84 year old, white female, who presents with altered mental status with no real sense of what her previous level of functioning was. RECOMMENDATION AND PLAN: Continue current medication. Continue to monitor for improvement. Will look for collateral information regarding baseline. Will continue to follow. Patient clearly lacks capacity for decision-making at this time. Attestations NPU Medical Necessity Statement*: N/A. Please see primary team report for medical necessity. Will continue to evaluate for any need for inpatient geriatric psychiatric services. Coding Level of Care Code Acute Scorer Single for Chuy Baer
[2019-12-28] VITALS (7 sets, daily range): BP systolic 128–176; BP diastolic 70–88; PULSE 79–92; RESP 16–20; TEMP 36.4–37.1; O2SAT 91–97
[2019-12-28] MEDS: heparin 5,000 unit/mL INJ 1 mL 5000 UNIT SUBCUT ×2 (09:03→20:45)
[2019-12-28] MEDS: sertraline 50 mg Tablet 25 MG PO (09:06)
[2019-12-28] MEDS: thiamine 100 mg Tablet PO (09:06)
--- NOTE | 2019-12-28 09:18 | PC.SOCIAL ---
IMM not completed. Pt is confused and unable to comprehend information. Pt will not be discharged within 48 hours. SS will follow up.
--- NOTE | 2019-12-28 14:28 | P.PN_ITS ---
Subjective Subjective: Interval history: She is awake and alert, fidgeting with her covers. Smiles on greeting. Lunch tray is in front of her, however, she has not started eating. Waiting for someone to help her. When asked she says she does remember seeing me before, however, does not remember when. Does not remember where she currently is. When asked if she members what year it is she replies I do not really need to . Denies any pain or discomfort. Vitals/I&O/Wt Last Vital Signs Temp 98.7 F 12/28/19 12:00 Pulse 87 12/28/19 12:00 Resp 18 12/28/19 12:00 BP 176/88 12/28/19 12:00 Pulse Ox 95 12/28/19 12:00 12/27/19 12/28/19 12/28/19 22:59 06:59 14:59 Intake Total 200 / 440 0 / 440 Output Total 0 / 0 Balance 200 / 440 0 / 440 Physical Exam Const: COMMON NORMALS: no acute distress; negative for patient oriented x3 GENERAL APPEARANCE: frail appearing OTHER: She follows basic commands. Takes deep breaths when asked. Is not apt enough to start eating lunch on her own. HENMT: COMMON NORMALS: oropharynx normal Neck/C-Spine: COMMON NORMALS: no JVD Resp: COMMON NORMALS: normal respiratory effort and clear to auscultation bilaterally AUSCULTATION: clear to auscultation bilaterally Cardio: COMMON NORMALS: no JVD, regular rhythm, S1 normal heart sound present, S2 normal heart sound present and No murmurs present (Cardio) RHYTHM: regular rhythm HEART SOUNDS: S1 normal heart sound present and S2 normal heart sound present GI: COMMON NORMALS: Normal to inspection, nondistended, normoactive bowel sounds present, Soft to palpation and non-tender PALPATION: Yes Soft to palpation Extremity: COMMON NORMALS: no joint enlargement and no pedal edema Neuro: COMMON NORMALS: moves all extremities; negative for patient oriented x3 Skin: COMMON NORMALS: no rashes or lesions noted GENERAL SKIN EXAM: no rashes or lesions noted Urinary Catheter Management^: Irwin: Cath Placed During This Visit: yes, but has since been removed by the nurse Reason for Continuing Indwelling Catheter: Decision to DC Catheter Urinary Catheter Date of Insertion: 12/21/19 Urinary Catheter Time of Insertion: 11:50 Date Urinary Catheter Removed: 12/26/19 Time Urinary Catheter Discontinued: 10:40 Data : 12/24/19 03:04 12/26/19 05:28 A&P Assessment and plan (1) Acute hypernatremia: Improved. Encourage oral nutrition and hydration. Per discussion with labs she had declined lab draw for today. Status: Acute (2) Encephalopathy acute: She remains alert, interactive, although unable to provide very much information beyond very basic questions. Does not know where she is, or what year it is. She is comfortable at rest, polite, tries to be cooperative, however, having trouble completing any more complex tasks. Baseline is unknown. She is awake and alert, cooperative, takes a while to consider her answers, not oriented to place or date. Says she is feeling all right. Is not sure why she is here. CT head demonstrates no CVA. B12, TSH are normal. She is receiving thiamine by mouth Status: Acute (3) Dehydration: Resolved Status: Acute (4) Hypercalcemia: Significant elevation was due to dehydration. Resolved. Would monitor, and if recurrence may need additional follow-up/investigation. Calcium level now normal. Parathyroid hormone was normal. Status: Acute (5) Elevated lactic acid level: Secondary to dehydration Status: Acute (6) Elevated troponin: Type II elevation. Status: Acute (7) Dementia: Continue to reassess. Likely needs facility placement. Psychiatry assessment appreciated. Appreciate also case management assistance with disposition planning, arrangements for guardianship. At this time she continues to require significant assistance with activities of daily life. Near my visit her lunch is in for her, however she does not appear to be able to attempt to feed herself. Despite improvement in metabolic a bnormalities, without evidence of active infection, or other acute problems, she remains awake, alert, no knee discomfort, however, he has not oriented, and without insight into her condition. Status: Acute Additional A&P Information Transaminitis, not present on admission. Unchanged, mild. Ammonia level n ormal. Recheck. Mild thrombocytopenia. Reassess. Per discussion with labs she declined her morning blood draw today. Mild hypokalemia, supplemented Zoloft started for depression Full code Heparin for DVT prophylaxis Attestations Medical Necessity Statement*: Continue admission for placement as she is u nable to care for herself independently, and arrangements for guardianship due to lack of decision making capacity. Coding Level of Care Code Acute Remelt Worker for [facility] Fwd Diagnoses Acute hypernatremia E87.0 Encephalopathy acute G93.40 Dehydration E86.0 Hypercalcemia E83.52 Elevated lactic acid level R79.89 Elevated troponin R79.89 Dementia F03.90
--- NOTE | 2019-12-28 15:50 | PM.NPN ---
Subjective NPU Subjective: Interval history: Sola presents today being slightly more communicative and seeming more interested in trying to engage in answers before some questions were given to her, and she would just seem despondent and not even acknowledge that a question was asked or give any attempts to answer the question. She is seeming more engaged and understanding even if she is having difficulty articulating or having memory concerns. She seems more interested in actually participating in the general interactive process that humans have. Otherwise, she did not have anything specific that she communicated and continues to be about status quo, likely pushing much closer to what is probably her baseline. Mental Status Exam MSE Comments: This is a well-nourished, well-developed, elderly, white female, in a hospital gown, with adequate grooming and improved eye contact. No abnormal movements, except for significant psychomotor retardation. More cooperative with exam in no acute distress. Speech still was limited with limited spontaneous verbalizations, but more than yesterday, with decreased rate and volume. Mood described as OK; affect flat and subdued. Thought process, linear. Thought content: did not answer questions but did not demonstrate self-directed or outwardly directed aggression; she did not appear to be attending to internal stimuli. Attention and concentration were impaired, but improving, and memory was unable to be obtained, but none were formally tested. She is alert but without orientation. Insight and judgment are impaired. Vitals/I&O/Wt Last Vital Signs Temp 97.8 F 12/28/19 04:00 Pulse 86 12/28/19 04:00 Resp 16 12/28/19 04:00 BP 151/83 12/28/19 04:00 Pulse Ox 91 12/28/19 04:00 12/28/19 12/28/19 12/29/19 14:59 22:59 06:59 Intake Total 60 / 60 480 / 540 200 / 740 Balance 60 / 60 480 / 540 200 / 740 Physical Exam Urinary Catheter Management^: Irwin: Cath Placed During This Visit: yes, but has since been removed by the nurse Reason for Continuing Indwelling Catheter: Decision to DC Catheter Urinary Catheter Date of Insertion: 12/21/19 Urinary Catheter Time of Insertion: 11:50 Date Urinary Catheter Removed: 12/26/19 Time Urinary Catheter Discontinued: 10:40 Data NPU : 12/30/19 02:44 12/30/19 02:44 A&P Additional A&P Information (1) Encephalopathy acute: (2) Dementia: This is an 84 year old, white female, who presents with altered mental status with no real sense of what her previous level of functioning was. RECOMMENDATION AND PLAN: Continue current medication. Continue to monitor for improvement. Will look for collateral information regarding baseline. Will continue to follow. Patient clearly lacks capacity for decision-making at this time. Attestations NPU Medical Necessity Statement*: N/A. Please see primary team report for medical necessity. Will continue to evaluate for any need for inpatient geriatric psychiatric services. Coding Level of Care Code Acute Tire Buster for Chuy Baer
[2019-12-29] VITALS: BP 164/86; PULSE 97; RESP 20; TEMP 36.6; O2SAT 96
[2019-12-29 04:00] VITALS: BP 153/80; PULSE 83; RESP 24; TEMP 36.4; O2SAT 93
[2019-12-29 05:35] LABS: Basophils % 0.1 %; Eosinophils # 0.1 10^3/uL (0.0-0.8); Eosinophils % 0.7 %; Hematocrit 33.9 % (37.0-47.0); Hemoglobin 10.9 g/dL (11.5-15.3); Lymphocytes # 1.4 10^3/uL (0.8-4.8); Lymphocytes % 16.4 %; Mean Corpuscular HGB Conc 32.2 g/dL (30.0-36.0); Mean Corpuscular Hemoglobin 30.8 pg (28.0-34.0); Mean Corpuscular Volume 95.8 fL (81-99); Mean Platelet Volume 11.8 fL (7.4-10.4); Monocytes # 0.9 10^3/uL (0.2-0.9); Monocytes % 10.5 %; Neutrophils # 6.17 10^3/uL (1.8-7.7); Neutrophils % 71.5 %; Nucleated Red Blood Cells % 0 %; Platelet Count 191 10^3/cmm (130-400); Red Blood Count 3.54 10^6/uL (4.1-5.3); Red Cell Distribution Width 12.4 % (12.1-15.1); White Blood Count 8.6 10^3/uL (4.0-10.0)
[2019-12-29 05:56] LABS: Alanine Aminotransferase 44 U/L (0-33); Albumin Level 2.8 g/dL (3.5-5.2); Alkaline Phosphatase 64 IU/L (35-105); Anion Gap 11.9 (5-19); Aspartate Amino Transferase 58 U/L (0-32); Blood Urea Nitrogen 11 mg/dL (8-23); Calcium 9.5 mg/dL (8.5-10.5); Carbon Dioxide 26 mmol/L (22-29); Chloride 99 mmol/L (98-107); Globulin 3.3 g/dL (1.3-4.6); Glucose 121 mg/dL (65-115); Osmolality Calculated 273 mOsm/kg (285-295); Potassium 3.9 mmol/L (3.5-5.1); Sodium 133 mmol/L (136-145); Total Bilirubin 0.6 mg/dL (0.15-1.2); Total Protein 6.1 g/dL (6.6-8.7)
[2019-12-29 07:21] VITALS: BP 184/84; PULSE 82; RESP 14; TEMP 36.1; O2SAT 96
--- NOTE | 2019-12-29 07:31 | PC.SOCIAL ---
Unable to complete the initial eval in detail. Patient is unable to correspond. Information gained from outside sources who amongst all have limited information.
[2019-12-29] MEDS: sertraline 50 mg Tablet 25 MG PO (08:43)
[2019-12-29] MEDS: thiamine 100 mg Tablet PO (08:43)
[2019-12-29 11:08] VITALS: BP 105/56; PULSE 99; RESP 16; TEMP 36.2; O2SAT 96
[2019-12-29 15:05] VITALS: BP 171/93; PULSE 80; RESP 14; TEMP 36.3; O2SAT 94
--- NOTE | 2019-12-29 16:59 | P.PN_ITS ---
Subjective Subjective: Interval history: She denies any complaints, she reports that her appetite is good, and she could eat something, although on discussion with her nurse, requires total assistance with eating. When asked if she is having any pain or nuclear breathing, replies normal. She does not know where she is. She does not remember the current year. When asked if she needs anything replies no, when asked if she would let us know if she did, replies yes. Vitals/I&O/Wt Last Vital Signs Temp 97.3 F L 12/29/19 15:05 Pulse 80 12/29/19 15:05 Resp 14 12/29/19 15:05 BP 171/93 12/29/19 15:05 Pulse Ox 94 12/29/19 15:05 12/29/19 12/29/19 12/29/19 06:59 14:59 22:59 Intake Total 200 / 740 Balance 200 / 740 Physical Exam Const: COMMON NORMALS: no acute distress; negative for patient oriented x3 GENERAL APPEARANCE: frail appearing OTHER: She follows basic commands. Takes deep breaths when asked. Is not apt enough to start eating lunch on her own. HENMT: COMMON NORMALS: oropharynx normal Neck/C-Spine: COMMON NORMALS: no JVD Resp: COMMON NORMALS: normal respiratory effort and clear to auscultation bilaterally AUSCULTATION: clear to auscultation bilaterally Cardio: COMMON NORMALS: no JVD, regular rhythm, S1 normal heart sound present, S2 normal heart sound present and No murmurs present (Cardio) RHYTHM: regular rhythm HEART SOUNDS: S1 normal heart sound present and S2 normal heart sound present GI: COMMON NORMALS: Normal to inspection, nondistended, normoactive bowel so unds present, Soft to palpation and non-tender PALPATION: Yes Soft to palpation Extremity: COMMON NORMALS: no joint enlargement and no pedal edema Neuro: COMMON NORMALS: moves all extremities; negative for patient oriented x3 Skin: COMMON NORMALS: no rashes or lesions noted GENERAL SKIN EXAM: no rashes or lesions noted Urinary Catheter Management^: Irwin: Cath Placed During This Visit: yes, but has since been removed by the nurse Reason for Continuing Indwelling Catheter: Decision to DC Catheter Urinary Catheter Date of Insertion: 12/21/19 Urinary Catheter Time of Insertion: 11:50 Date Urinary Catheter Removed: 12/26/19 Time Urinary Catheter Discontinued: 10:40 Data : 12/29/19 05:14 12/29/19 05:14 A&P Assessment and plan (1) Acute hypernatremia: Improved. Encourage oral nutrition and hydration. Note mild hyponatremia, sodium 133. Slightly worse from 12/25 at 135. [place] salt intake in diet. Status: Acute (2) Encephalopathy acute: She remains alert, not in distress or discomfort, interactive, although unable to provide very much information beyond very basic questions. Does not know where she is, or what year it is. She is comfortable at rest, polite, tries to be cooperative, however, having trouble completing any more complex tasks then taking breaths or lifting her arms. Baseline is unknown. She is awake and alert, cooperative, takes a while to consider her answers, not oriented to place or date. Says she is feeling all right. Is not sure why she is here. CT head demonstrates no CVA. Mild ex vacuo ventriculomegaly noted. Frontotemporal atrophy. B12, TSH are normal. She is receiving thiamine by mouth. Status: Acute (3) Dehydration: Resolved Status: Acute (4) Hypercalcemia: Significant elevation was due to dehydration. Resolved. Would monitor, and if recurrence may need additional follow-up/investigation. Calcium level now normal. Parathyroid hormone was normal. Status: Acute (5) Elevated lactic acid level: Secondary to dehydration Status: Acute (6) Elevated troponin: Type II elevation. Status: Acute (7) Dementia: Needs facility placement. Psychiatry assessment appreciated. Appreciate also case management assistance with disposition planning, arrangements for guardianship. At this time she continues to require significant assistance with activities of daily life. Despite improvement in metabolic abnormalities, without evidence of active infection, or other acute problems, she remains awake, alert, no discomfort, however, not oriented, and without insight into her condition. Status: Acute Additional A&P Information Transaminitis, not present on admission. Mild. Ammonia level normal. Mild thrombocytopenia. Resolved. Mild hypokalemia, supplemented Zoloft started for depression Full code Heparin for DVT prophylaxis Attestations Medical Necessity Statement*: Continue admission for arrangements for placement due to significant cognitive impairment/dementia, requiring assistance with activities of daily life. Coding Level of Care Code Acute Neuropsychiatric Aide for Chuy Baer Diagnoses Acute hypernatremia E87.0 Encephalopathy acute G93.40 Dehydration E86.0 Hypercalcemia E83.52 Elevated lactic acid level R79.89 Elevated troponin R79.89 Dementia F03.90
--- NOTE | 2019-12-29 17:45 | P.PN_ITS ---
Subjective NPU Subjective: Interval history: The patient presents today reporting that she is okay. She seemed a little less with it today than the last day, but is beginning to seem like this, saying a few words, being interactive at a non-spontaneous, but reactive way. It looks like it is probably closer to baseline and still warranting assistance and not seeming like a safe plan for independence. When she was in the process of answering, she could not get to an answer of how she gets food or takes care of herself when she is at home, but she is more awake and alert than she was on the first couple of days and last two days I imagine seems more like baseline, but again we have limited insight into what that looked like because it does not seem like she is very connected with the commu nity thus far. Mental Status Exam MSE Comments: This is a well-nourished, well-developed, elderly, white female, in a hospital gown, with adequate grooming and improved eye contact. No abnormal movements, except for significant psychomotor retardation. More cooperative with exam in no acute distress. Speech still was limited with limited spontaneous verbalizations, but more than yesterday, with decreased rate and volume. Mood described as fine; affect flat and subdued. Thought process, linear. Thought content: did not answer questions but did not demonstrate self-directed or outwardly directed aggression; she did not appear to be attending to internal stimuli. Attention and concentration were impaired, but improving, and memory was unable to be obtained, but none were formally tested. She is alert but without orientation. Insight and judgment are impaired. Vitals/I&O/Wt Last Vital Signs Temp 97.6 F 12/29/19 04:00 Pulse 83 12/29/19 04:00 Resp 24 H 12/29/19 04:00 BP 153/80 12/29/19 04:00 Pulse Ox 93 12/29/19 04:00 12/29/19 12/29/19 14:59 22:59 Intake Total 50 / 50 Balance 50 / 50 Physical Exam Urinary Catheter Management^: Irwin: Cath Placed During This Visit: yes, but has since been removed by the nurse Reason for Continuing Indwelling Catheter: Decision to DC Catheter Urinary Catheter Date of Insertion: 12/21/19 Urinary Catheter Time of Insertion: 11:50 Date Urinary Catheter Removed: 12/26/19 Time Urinary Catheter Discontinued: 10:40 Data NPU : 12/30/19 02:44 12/30/19 02:44 A&P Additional A&P Information (1) Encephalopathy acute: (2) Dementia: This is an 84 year old, white female, who presents with altered mental status with no real sense of what her previous level of functioning was. RECOMMENDATION AND PLAN: Continue current medication. Continue to monitor for improvement. Will look for collateral information regarding baseline. Will continue to follow. Patient clearly lacks capacity for decision-making at this time. Attestations NPU Medical Necessity Statement*: N/A. Please see primary team report for medical necessity. Will continue to evaluate for any need for inpatient geriatric psychiatric services. Coding Level of Care Code Acute Civil Service Clerk for Chuy Baer
[2019-12-29] MEDS: heparin 5,000 unit/mL INJ 1 mL 5000 UNIT SUBCUT (20:40)
[2019-12-29 21:10] VITALS: BP 174/91; PULSE 90; RESP 16; TEMP 37; O2SAT 97
--- NOTE | 2019-12-29 22:09 | PC.NURSE ---
Pt. declined being repositioned
[2019-12-30 00:05] VITALS: BP 164/74; PULSE 76; RESP 16; TEMP 36.9; O2SAT 96
[2019-12-30 03:15] VITALS: BP 161/79; PULSE 79; RESP 14; TEMP 36.7; O2SAT 98
[2019-12-30 03:43] LABS: Basophils % 0.2 %; Eosinophils # 0.1 10^3/uL (0.0-0.8); Eosinophils % 0.5 %; Hematocrit 35.1 % (37.0-47.0); Hemoglobin 11.1 g/dL (11.5-15.3); Lymphocytes # 1.3 10^3/uL (0.8-4.8); Lymphocytes % 12.8 %; Mean Corpuscular HGB Conc 31.6 g/dL (30.0-36.0); Mean Corpuscular Hemoglobin 30.2 pg (28.0-34.0); Mean Corpuscular Volume 95.4 fL (81-99); Mean Platelet Volume 11.9 fL (7.4-10.4); Monocytes % 9.9 %; Neutrophils # 7.43 10^3/uL (1.8-7.7); Neutrophils % 75.9 %; Nucleated Red Blood Cells % 0 %; Platelet Count 245 10^3/cmm (130-400); Red Blood Count 3.68 10^6/uL (4.1-5.3); Red Cell Distribution Width 12.4 % (12.1-15.1); White Blood Count 9.8 10^3/uL (4.0-10.0)
[2019-12-30 04:02] LABS: Alanine Aminotransferase 43 U/L (0-33); Albumin Level 2.7 g/dL (3.5-5.2); Alkaline Phosphatase 71 IU/L (35-105); Anion Gap 13.9 (5-19); Aspartate Amino Transferase 48 U/L (0-32); Blood Urea Nitrogen 12 mg/dL (8-23); Calcium 9.5 mg/dL (8.5-10.5); Carbon Dioxide 25 mmol/L (22-29); Chloride 97 mmol/L (98-107); Globulin 3.4 g/dL (1.3-4.6); Glucose 112 mg/dL (65-115); Osmolality Calculated 271 mOsm/kg (285-295); Potassium 3.9 mmol/L (3.5-5.1); Sodium 132 mmol/L (136-145); Total Bilirubin 0.6 mg/dL (0.15-1.2); Total Protein 6.1 g/dL (6.6-8.7)
[2019-12-30 07:47] VITALS: BP 180/74; PULSE 84; RESP 16; TEMP 36.6; O2SAT 97
[2019-12-30] MEDS: heparin 5,000 unit/mL INJ 1 mL 5000 UNIT SUBCUT ×2 (08:32→21:44)
[2019-12-30] MEDS: thiamine 100 mg Tablet PO (08:32)
[2019-12-30] MEDS: sertraline 50 mg Tablet 25 MG PO (08:32)
--- NOTE | 2019-12-30 09:01 | PC.SOCIAL ---
IMM not updated due to pt not being able to comprehend. Pt will not be discharged within the next 48 hours. SS will continue to monitor pt progress.
[2019-12-30 11:21] VITALS: BP 120/70; PULSE 79; RESP 16; TEMP 36.7; O2SAT 95
--- NOTE | 2019-12-30 13:27 | PM.PN ---
Subjective Subjective: Interval history: Denies any complaints. Cannot tell me where she is or what date it is. When asked if she needs anything replies no . Vitals/I&O/Wt Last Vital Signs Temp 98.0 F 12/30/19 11:21 Pulse 79 12/30/19 11:21 Resp 16 12/30/19 11:21 BP 120/70 12/30/19 11:21 Pulse Ox 95 12/30/19 11:21 12/29/19 12/30/19 12/30/19 22:59 06:59 14:59 Intake Total 50 / 50 70 / 120 60 / 60 Balance 50 / 50 70 / 120 60 / 60 Physical Exam Const: COMMON NORMALS: no acute distress; negative for patient oriented x3 GENERAL APPEARANCE: frail appearing OTHER: Takes deep breaths when asked. HENMT: COMMON NORMALS: oropharynx normal Neck/C-Spine: COMMON NORMALS: no JVD Resp: COMMON NORMALS: normal respiratory effort and clear to auscultation bilaterally AUSCULTATION: clear to auscultation bilaterally Cardio: COMMON NORMALS: no JVD, regular rhythm, S1 normal heart sound present, S2 normal heart sound present and No murmurs present (Cardio) RHYTHM: regular rhythm HEART SOUNDS: S1 normal heart sound present and S2 normal heart sound present GI: COMMON NORMALS: Normal to inspection, nondistended, normoactive bowel sounds present, Soft to palpation and non-tender PALPATION: Yes Soft to palpation Extremity: COMMON NORMALS: no joint enlargement and no pedal edema Neuro: COMMON NORMALS: moves all extremities; negative for patient oriented x3 Skin: COMMON NORMALS: no rashes or lesions noted GENERAL SKIN EXAM: no rashes or lesions noted Urinary Catheter Management^: Irwin: Cath Placed During This Visit: yes, but has since been removed by the nurse Reason for Continuing Indwelling Catheter: Decision to DC Catheter Urinary Catheter Date of Insertion: 12/21/19 Urinary Catheter Time of Insertion: 11:50 Date Urinary Catheter Removed: 12/26/19 Time Urinary Catheter Discontinued: 10:40 Data : 12/30/19 02:44 12/30/19 02:44 A&P Assessment and plan (1) Dementia: Needs facility placement. Psychiatry assessment appreciated. Appreciate also case management assistance with disposition planning, arrangements for guardianship. At this time she continues to require significant assistance with activities of daily life. Despite improvement in metabolic abnormalities, without evidence of active infection, or other acute problems, she remains awake, alert, no discomfort, however, not oriented, and without insight into her condition. Status: Acute (2) Acute hypernatremia: Improved. Encourage oral nutrition and hydration. Note mild hyponatremia. Slightly worse from 12/25 at 135. [place] salt intake in diet. Needs assistance with feeding. Status: Acute (3) Encephalopathy acute: Remains alert, not in distress or discomfort, interactive, although unable to provide very much information beyond very basic questions. Does not know where she is, or what year it is. She is comfortable at rest, polite, tries to be cooperative, however, having trouble completing any more complex tasks then taking breaths or lifting her arms. Baseline is unknown. She is awake and alert, cooperative, takes a while to consider her answers, not oriented to place or date. Says she is feeling all right. Is not sure why she is here. CT head demonstrates no CVA. Mild ex vacuo ventriculomegaly noted. Frontotemporal atrophy. B12, TSH are normal. She is receiving thiamine by mouth. Status: Acute (4) Dehydration: Resolved Status: Acute (5) Hypercalcemia: Significant elevation was due to dehydration. Resolved. Would monitor, and if recurrence may need additional follow-up/investigation. Calcium level now normal. Parathyroid hormone was normal. Status: Acute (6) Elevated lactic acid level: Secondary to dehydration Status: Acute (7) Elevated troponin: Type II elevation. Status: Acute Additional A&P Information Transaminitis, not present on admission. Mild. Ammonia level normal. Mild thrombocytopenia. Resolved. Mild hypokalemia, supplemented Zoloft started for depression Full code Heparin for DVT prophylaxis Attestations Medical Necessity Statement*: Continue admission for arrangements for placement, guardianship. Coding Level of Care Code Acute Low Voltage Electrician for [facility] Fwd Diagnoses Dementia F03.90 Acute hypernatremia E87.0 Encephalopathy acute G93.40 Dehydration E86.0 Hypercalcemia E83.52 Elevated lactic acid level R79.89 Elevated troponin R79.89
--- NOTE | 2019-12-30 14:09 | PM.NPN ---
Subjective NPU Subjective: Interval history: The patient presents today reporting that she is fine. She seemed a little more depressed today than the last day, but is still saying a few words, being interactive at a non-spontaneous, but reactive way. It looks like it is probably closer to baseline and still warranting guardian and not seeming like a safe plan for independence. When she was in the process of answering, she could not get to some answers with multiple attempts, but she is more awake and alert than she was on the first couple of days and last two days seems more like they constitute baseline, but again we have limited insight into what that looked like because it does not seem like she is very connected with the community or family. Mental Status Exam MSE Comments: This is a well-nourished, well-developed, elderly, white female, in a hospital gown, with adequate grooming and improved eye contact. No abnormal movements, except for significant psychomotor retardation. More cooperative with exam in no acute distress. Speech still was limited with limited spontaneous verbalizations, but more than yesterday, with decreased rate and volume. Mood described as i don't know; affect flat and subdued. Thought process, linear. Thought content: did not answer questions but did not demonstrate self-directed or outwardly directed aggression; she did not appear to be attending to internal stimuli. Attention and concentration were impaired, but improving, and memory was unable to be obtained, but none were formally tested. She is alert but without orientation. Insight and judgment are impaired. Vitals/I&O/Wt Last Vital Signs Temp 98.4 F 12/30/19 11:21 Pulse 91 12/30/19 11:21 Resp 18 12/30/19 11:21 BP 151/81 12/30/19 11:21 Pulse Ox 95 12/30/19 11:21 12/30/19 14:59 Intake Total 160 / 160 Balance 160 / 160 Physical Exam Urinary Catheter Management^: Irwin: Cath Placed During This Visit: yes, but has since been removed by the nurse Reason for Continuing Indwelling Catheter: Decision to DC Catheter Urinary Catheter Date of Insertion: 12/21/19 Urinary Catheter Time of Insertion: 11:50 Date Urinary Catheter Removed: 12/26/19 Time Urinary Catheter Discontinued: 10:40 Data NPU : 12/30/19 02:44 12/30/19 02:44 A&P Additional A&P Information (1) Encephalopathy acute: (2) Dementia: This is an 84 year old, white female, who presents with altered mental status with no real sense of what her previous level of functioning was. RECOMMENDATION AND PLAN: Continue current medication. Except increase zoloft to 50 mg qam. Continue to monitor for improvement. Will look for collateral information regarding baseline. Will continue to follow. Patient clearly lacks capacity for decision-making at this time. Attestations NPU Medical Necessity Statement*: N/A. Please see primary team report for medical necessity. Will continue to evaluate for any need for inpatient geriatric psychiatric services. Coding Level of Care Code Acute Culinary Specialist for Chuy Baer
[2019-12-30 15:44] VITALS: BP 163/77; PULSE 81; RESP 16; TEMP 37.1; O2SAT 95
[2019-12-30 20:00] VITALS: BP 166/63; PULSE 77; RESP 18; TEMP 36.9; O2SAT 92
[2019-12-31] VITALS: BP 151/81; PULSE 91; RESP 18; TEMP 36.9; O2SAT 95
[2019-12-31 04:00] VITALS: BP 156/72; PULSE 86; RESP 19; TEMP 37; O2SAT 94
[2019-12-31 07:40] VITALS: BP 130/68; PULSE 76; RESP 18; TEMP 36.8; O2SAT 95
[2019-12-31] MEDS: sertraline 50 mg Tablet PO (08:38)
[2019-12-31] MEDS: thiamine 100 mg Tablet PO (08:38)
[2019-12-31] MEDS: heparin 5,000 unit/mL INJ 1 mL 5000 UNIT SUBCUT ×2 (08:38→20:59)
[2019-12-31 11:23] VITALS: BP 132/64; PULSE 74; RESP 20; TEMP 36.8; O2SAT 97
--- NOTE | 2019-12-31 11:47 | PM.PN ---
Subjective Subjective: Interval history: Today she is somewhat more animated. More interactive. She is playing with the remote control during my visit. When asked if she knows where she is, replies gesturing in the biggest building around . When asked about the year states it is 1987. Denies any pain or discomfort. Vitals/I&O/Wt Last Vital Signs Temp 98.3 F 12/31/19 11:23 Pulse 74 12/31/19 11:23 Resp 20 H 12/31/19 11:23 BP 132/64 12/31/19 11:23 Pulse Ox 97 12/31/19 11:23 12/30/19 12/31/19 12/31/19 22:59 06:59 14:59 Intake Total 60 / 220 240 / 460 240 / 240 Balance 60 / 220 240 / 460 240 / 240 Physical Exam Const: COMMON NORMALS: no acute distress GENERAL APPEARANCE: frail appearing ORIENTATION/CONSCIOUSNESS: not oriented to person, not oriented to place and not oriented to time OTHER: Today follows commands better. We are done with physical exam, goes back to fidgeting with the call light. HENMT: COMMON NORMALS: oropharynx normal Neck/C-Spine: COMMON NORMALS: no JVD Resp: COMMON NORMALS: normal respiratory effort and clear to auscultation bilaterally AUSCULTATION: clear to auscultation bilaterally Cardio: COMMON NORMALS: no JVD, regular rhythm, S1 normal heart sound present, S2 normal heart sound present and No murmurs present (Cardio) RHYTHM: regular rhythm HEART SOUNDS: S1 normal heart sound present and S2 normal heart sound present GI: COMMON NORMALS: Normal to inspection, nondistended, normoactive bowel sounds present, Soft to palpation and non-tender PALPATION: Yes Soft to palpation Extremity: COMMON NORMALS: no joint enlargement and no pedal edema Neuro: COMMON NORMALS: moves all extremities SENSORIUM/ORIENTATION: No oriented to person, No oriented to place and No oriented to time Skin: COMMON NORMALS: no rashes or lesions noted GENERAL SKIN EXAM: no rashes or lesions noted Urinary Catheter Management^: Irwni: Cath Placed During This Visit: yes, but has since been removed by the nurse Reason for Continuing Indwelling Catheter: Decision to DC Catheter Urinary Catheter Date of Insertion: 12/21/19 Urinary Catheter Time of Insertion: 11:50 Date Urinary Catheter Removed: 12/26/19 Time Urinary Catheter Discontinued: 10:40 Data : 12/30/19 02:44 12/30/19 02:44 A&P Assessment and plan (1) Dementia: Pending approval for facility placement. Pending process for obtaining guardianship. Slightly more animated today, not oriented. No insight into her condition. Not in any discomfort. Psychiatry assessment appreciated. Appreciate also case management assistance with disposition planning, arrangements for guardianship. At this time she continues to require significant assistance with activities of daily life. Despite improvement in metabolic abnormalities, without evidence of active infection, or other acute problems, she remains awake, alert, no discomfort, however, not oriented, and without insight into her condition. Status: Acute (2) Acute hypernatremia: Improved. Encourage oral nutrition and hydration. Note mild hyponatremia. Slightly worse from 12/25 at 135. [place] salt intake in diet. Needs assistance with feeding. Status: Acute (3) Encephalopathy acute: Remains alert, not in distress or discomfort, interactive, although unable to provide very much information beyond very basic questions. Does not know where she is, or what year it is. She is comfortable at rest, polite, tries to be cooperative, however, having trouble completing any more complex tasks then taking breaths or lifting her arms. Baseline is unknown. She is awake and alert, cooperative, takes a while to consider her answers, not oriented to place or date. Says she is feeling all right. Is not sure why she is here. CT head demonstrates no CVA. Mild ex vacuo ventriculomegaly noted. Frontotemporal atrophy. B12, TSH are normal. She is receiving thiamine by mouth. Status: Acute (4) Dehydration: Resolved Status: Acute (5) Hypercalcemia: Significant elevation was due to dehydration. Resolved. Would monitor, and if recurrence may need additional follow-up/investigation. Calcium level now normal. Parathyroid hormone was normal. Status: Acute (6) Elevated lactic acid level: Secondary to dehydration Status: Acute (7) Elevated troponin: Type II elevation. Status: Acute Additional A&P Information Transaminitis, not present on admission. Mild. Ammonia level normal. Mild thrombocytopenia. Resolved. Mild hypokalemia, supplemented Zoloft started for depression Full code Heparin for DVT prophylaxis Attestations Medical Necessity Statement*: Continue admission for arrangements for placement to jail facility and guardianship. Coding Level of Care Code Acute Sexual Assault Response Coordinator for [facility] Diagnoses Dementia F03.90 Acute hypernatremia E87.0 Encephalopathy acute G93.40 Dehydration E86.0 Hypercalcemia E83.52 Elevated lactic acid level R79.89 Elevated troponin R79.89
[2019-12-31 15:23] VITALS: BP 128/76; PULSE 64; RESP 20; TEMP 36.8; O2SAT 93
--- NOTE | 2019-12-31 18:49 | P.PN_ITS ---
Subjective NPU Subjective: Interval history: Sola continues to show very subtle but clear improvement with more active participation in conversation. She is having responses that reflect grasping what was said to her and reflection of some of those items back away from the just yes/no but incorporating the elements of the person?s question in her answer. She continued to have moments where she cannot get to the word she wants or probably loses her focus and so she does not remember what the question necessarily was, but there is a general sense that she is not at home, but her word finding does not get her quite at hospital and certainly not the specifics of [facility], but she is more alert to what is going on in general. She is reportedly doing better across the board, eating a little better, and sleeping fine. Mental Status Exam MSE Comments: This is a well-nourished, well-developed, elderly, white female, in a hospital gown, with adequate grooming and improved eye contact. No abnormal movements, except for significant psychomotor retardation. More cooperative with exam in no acute distress. Speech still was limited with limited spontaneous verbalizations, but more than yesterday, with decreased rate and volume. Mood described as OK; affect flat and subdued. Thought process, linear. Thought content: did not answer questions but did not demonstrate self-directed or outwa rdly directed aggression; she did not appear to be attending to internal stimuli. Attention and concentration were impaired, but improving, and memory was unable to be obtained, but none were formally tested. She is alert but without orientation. Insight and judgment are impaired. Vitals/I&O/Wt Last Vital Signs Temp 97.9 F 12/31/19 19:46 Pulse 95 12/31/19 19:46 Resp 20 H 12/31/19 19:46 BP 176/81 12/31/19 19:46 Pulse Ox 97 12/31/19 19:46 12/31/19 12/31/19 12/31/19 06:59 14:59 22:59 Intake Total 240 / 460 600 / 600 240 / 840 Balance 240 / 460 600 / 600 240 / 840 Physical Exam Urinary Catheter Management^: Irwin: Cath Placed During This Visit: yes, but has since been removed by the nurse Reason for Continuing Indwelling Catheter: Decision to DC Catheter Urinary Catheter Date of Insertion: 12/21/19 Urinary Catheter Time of Insertion: 11:50 Date Urinary Catheter Removed: 12/26/19 Time Urinary Catheter Discontinued: 10:40 Data NPU : 01/03/20 03:27 01/03/20 03:27 A&P Additional A&P Information (1) Encephalopathy acute: (2) Dementia: This is an 84 year old, white female, who presents with altered mental status with no real sense of what her previous level of functioning was. RECOMMENDATION AND PLAN: Continue current medication. Except increase zoloft to 50 mg qam. Continue to monitor for improvement. Will look for collateral information regarding baseline. Will continue to follow. Patient clearly lacks capacity for decision-making at this time. Attestations NPU Medical Necessity Statement*: N/A. Please see primary team report for medical necessity. Will continue to evaluate for any need for inpatient geriatric psychiatric services. Coding Level of Care Code Acute Oiling Machine Operator for Chuy Baer
[2019-12-31 19:46] VITALS: BP 176/81; PULSE 95; RESP 20; TEMP 36.6; O2SAT 97
[2020-01-01] VITALS (8 sets, daily range): BP systolic 153–178; BP diastolic 72–84; PULSE 75–86; RESP 17–18; TEMP 36.1–37.4; O2SAT 92–99
[2020-01-01] MEDS: sertraline 50 mg Tablet PO (08:46)
[2020-01-01] MEDS: heparin 5,000 unit/mL INJ 1 mL 5000 UNIT SUBCUT ×2 (08:46→21:48)
[2020-01-01] MEDS: thiamine 100 mg Tablet PO (08:46)
--- NOTE | 2020-01-01 08:56 | PC.SOCIAL ---
IMM not Given IMM not given d/t pt not able to comprehend. Pt will not d/c in the next 48hrs. SS will continue to f/u with.
--- NOTE | 2020-01-01 11:27 | PC.CHAP ---
Pastoral Care Encounter/Spiritual Assessment Type of Contact [] Declined operations manager/coordinator visit [] Patient/Family/Request visit [] Outpatient visit [] Follow-up visit [] Physician referral [] Code/Alert [X] Routine visit [] Staff referral [] Actively dying [X] Patient sleeping [] Family support [] [] Out of room [] Palliative care [] [] Receiving care in room [] Pre-surgical visit [] Trauma [] Long length of stay [] ICU visit [] Other: Relational/Emotional Strength [] Patient feels connected with others/family/visitors/staff [] Distress [] Loneliness/isolation [] Abandonment Spirituality of Patient [] Person of Jodie [] Attends Taoism of their Jodie [] Believes in Prayer [] Reads Bible or Congregational materials [] There are Spiritual issues to be addressed Psychiatric Nurse Practitioner Interventions [] Prayer [] Active listening [] Non-anxious presence [] Spiritual/emotional support [] Crisis/trauma care [] Spiritual counseling [] Bereavement support [] Provided bereavement packet [] Provided Bible/devotional materials [] Provided toy/stuffed animal, coloring book to patient or family member [] Provided Communion [] Anointing/[place] [] Salvation [] Completed spiritual assessment [] Other: Impact on Illness or Injury [] Angry [] Fearful [] Anxious [] Often cries [] Exhaustion [] Unable to work [] Unable to attend restoration [] Unable to walk/stand [] Unable to read [] Unable to drive [] Unable to eat/drink [] Unable to sleep [] Unable to be with family [] Patient intubated [] Other: Summary Time spent with patient
--- NOTE | 2020-01-01 13:36 | PM.NPN ---
Subjective NPU Subjective: Interval history: Sola presented today continuing to show the small advances that she has with focusing and attention with continued deficiencies, but certainly seeming clearer and more functional than when she first came in. It is unclear what her baseline is, which is a difficulty. We talked about her affect and I tried to ascertain if she was feeling depressed, but it was unclear. She certainly looks depressed, when she initially had looked a little better for a couple days. I explained to her that I think it would be appropriate to increase the Zoloft in a couple of days. I reviewed the risks, benefits, and alternatives of doing so. It is unclear whether she understood. Mental Status Exam MSE Comments: This is a well-nourished, well-developed, elderly, white female, in a hospital gown, with adequate grooming and improved eye contact. No abnormal movements, except for significant psychomotor retardation. More cooperative with exam in no acute distress. Speech still was limited with limited spontaneous verbalizations, but more than yesterday, with decreased rate and volume. Mood described as alright; affect flat and subdued. Thought process, linear. Thought content: did not answer questions but did not demonstrate self-directed or outwardly directed aggression; she did not appear to be attending to internal stimuli. Attention and concentration were impaired, but improving, and memory was unable to be obtained, but none were formally tested. She is alert but without orientation. Insight and judgment are impaired. Vitals/I&O/Wt Last Vital Signs Temp 97.8 F 01/01/20 12:00 Pulse 77 01/01/20 12:00 Resp 18 01/01/20 12:00 BP 164/76 01/01/20 12:00 Pulse Ox 99 01/01/20 11:42 Physical Exam Urinary Catheter Management^: Irwin: Cath Placed During This Visit: yes, but has since been removed by the nurse Reason for Continuing Indwelling Catheter: Decision to DC Catheter Urinary Catheter Date of Insertion: 12/21/19 Urinary Catheter Time of Insertion: 11:50 Date Urinary Catheter Removed: 12/26/19 Time Urinary Catheter Discontinued: 10:40 Data NPU : 01/03/20 03:27 01/03/20 03:27 A&P Additional A&P Information (1) Encephalopathy acute: (2) Dementia: This is an 84 year old, white female, who presents with altered mental status with no real sense of what her previous level of functioning was. RECOMMENDATION AND PLAN: Continue current medication. Continue to monitor for improvement. Will look for collateral information regarding baseline. Will continue to follow. Patient clearly lacks capacity for decision-making at this time. Attestations NPU Medical Necessity Statement*: N/A. Please see primary team report for medical necessity. Will continue to evaluate for any need for inpatient geriatric psychiatric services. Coding Level of Care Code Acute Medical Records Manager for Chuy Baer
[2020-01-01 16:20] LABS: Glucose Point of Care 107 mg/dL (70-110)
--- NOTE | 2020-01-01 18:45 | P.PN_ITS ---
Subjective Subjective: Interval history: Appears slightly anxious during my visit, but denies any pain or anything bothering her. Does not know where she is. Vitals/I&O/Wt Last Vital Signs Temp 98.0 F 01/01/20 15:33 Pulse 84 01/01/20 15:33 Resp 18 01/01/20 15:33 BP 155/75 01/01/20 15:33 Pulse Ox 95 01/01/20 15:33 01/01/20 01/01/20 01/01/20 06:59 14:59 22:59 Intake Total 120 / 120 240 / 360 Output Total 0 / 0 Balance 120 / 120 240 / 360 Physical Exam Const: COMMON NORMALS: no acute distress GENERAL APPEARANCE: anxious and frail appearing ORIENTATION/CONSCIOUSNESS: not oriented to person, not oriented to place and not oriented to time HENMT: COMMON NORMALS: oropharynx normal Neck/C-Spine: COMMON NORMALS: no JVD Resp: COMMON NORMALS: normal respiratory effort and clear to auscultation bilaterally AUSCULTATION: clear to auscultation bilaterally Cardio: COMMON NORMALS: no JVD, regular rhythm, S1 normal heart sound present, S2 normal heart sound present and No murmurs present (Cardio) RHYTHM: regular rhythm HEART SOUNDS: S1 normal heart sound present and S2 normal heart sound present GI: COMMON NORMALS: Normal to inspection, nondistended, normoactive bowel sounds present, Soft to palpation and non-tender PALPATION: Yes Soft to palpation Extremity: COMMON NORMALS: no joint enlargement and no pedal edema Neuro: COMMON NORMALS: moves all extremities SENSORIUM/ORIENTATION: No oriented to person, No oriented to place and No oriented to time Skin: COMMON NORMALS: no rashes or lesions noted GENERAL SKIN EXAM: no rashes or lesions noted Urinary Catheter Management^: Irwin: Cath Placed During This Visit: yes, but has since been removed by the nurse Reason for Continuing Indwelling Catheter: Decision to DC Catheter Urinary Catheter Date of Insertion: 12/21/19 Urinary Catheter Time of Insertion: 11:50 Date Urinary Catheter Removed: 12/26/19 Time Urinary Catheter Discontinued: 10:40 Data : 12/30/19 02:44 12/30/19 02:44 A&P Assessment and plan (1) Dementia: Somewhat anxious today, but otherwise no changes in mental status, luda entation or insight. Remains alert. Pending approval for facility placement. Pending process for obtaining guardianship. Slightly more animated today, not oriented. No insight into her condition. Not in any discomfort. Psychiatry assessment appreciated. Appreciate also case management assistance with disposition planning, arrangements for guardianship. At this time she continues to require significant assistance with activities of daily life. Despite improvement in metabolic abnormalities, without evidence of active infection, or other acute problems, she remains awake, alert, no discomfort, however, not oriented, and without insight into her condition. Status: Acute (2) Acute hypernatremia: Improved. Encourage oral nutrition and hydration. Note mild hyponatremia. Slightly worse from 12/25 at 135. [place] salt intake in diet. Needs assistance with feeding. Status: Acute (3) Encephalopathy acute: Remains alert, not in distress or discomfort, interactive, although unable to provide very much information beyond very basic questions. Does not know where she is, or what year it is. She is comfortable at rest, polite, tries to be cooperative, however, having trouble completing any more complex tasks then taking breaths or lifting her arms. Baseline is unknown. She is awake and alert, cooperative, takes a while to consider her answers, not oriented to place or date. Says she is feeling all right. Is not sure why she is here. CT head demonstrates no CVA. Mild ex vacuo ventriculomegaly noted. Frontote mporal atrophy. B12, TSH are normal. She is receiving thiamine by mouth. Status: Acute (4) Dehydration: Resolved Status: Acute (5) Hypercalcemia: Significant elevation was due to dehydration. Resolved. Would monitor, and if recurrence may need additional follow-up/investigation. Calcium level now normal. Parathyroid hormone was normal. Status: Acute (6) Elevated lactic acid level: Secondary to dehydration Status: Acute (7) Elevated troponin: Type II elevation. Status: Acute Additional A&P Information Transaminitis, not present on admission. Mild. Ammonia level normal. Mild thrombocytopenia. Resolved. Mild hypokalemia, supplemented Zoloft started for depression Full code Heparin for DVT prophylaxis Attestations Medical Necessity Statement*: Continue admission for arrangements for placement and guardianship. Coding Level of Care Code Acute Swimming Pool Maintenance Supervisor for [facility] Diagnoses Dementia F03.90 Acute hypernatremia E87.0 Encephalopathy acute G93.40 Dehydration E86.0 Hypercalcemia E83.52 Elevated lactic acid level R79.89 Elevated troponin R79.89
[2020-01-02] VITALS: BP 138/76; BP 153/84; PULSE 74; PULSE 86; RESP 17; RESP 18; TEMP 36.7; TEMP 37.4; O2SAT 95
[2020-01-02 04:00] VITALS: BP 157/91; PULSE 85; RESP 18; TEMP 36.7; O2SAT 97
[2020-01-02 07:50] VITALS: BP 154/84; PULSE 93; RESP 18; TEMP 37.1; O2SAT 97
[2020-01-02] MEDS: heparin 5,000 unit/mL INJ 1 mL 5000 UNIT SUBCUT ×2 (09:19→20:05)
[2020-01-02] MEDS: thiamine 100 mg Tablet PO (09:19)
[2020-01-02] MEDS: sertraline 50 mg Tablet PO (09:19)
--- NOTE | 2020-01-02 11:10 | PC.CHAP ---
Pastoral Care Encounter/Spiritual Assessment Type of Contact [] Declined detail manager visit [] Patient/Family/Request visit [] Outpatient visit [X] Follow-up visit [] Physician referral [] Code/Alert [X] Routine visit [] Staff referral [] Actively dying [] Patient sleeping [] Family support [] [] Out of room [] Palliative care [] [] Receiving care in room [] Pre-surgical visit [] Trauma [] Long length of stay [] ICU visit [] Other: Relational/Emotional Strength [] Patient feels connected with others/family/visitors/staff [] Distress [] Loneliness/isolation [] Abandonment Spirituality of Patient [] Person of Jodie [] Attends Adventist of their Jodie [] Believes in Prayer [] Reads Bible or Samaritan materials [] There are Spiritual issues to be addressed Wildland Firefighter Interventions [] Prayer [] Active listening [] Non-anxious presence [] Spiritual/emotional support [] Crisis/trauma care [] Spiritual counseling [] Bereavement support [] Provided bereavement packet [] Provided Bible/devotional materials [] Provided toy/stuffed animal, coloring book to patient or family member [] Provided Communion [] Anointing/[place] [] Salvation [] Completed spiritual assessment [] Other: Impact on Illness or Injury [] Angry [] Fearful [] Anxious [] Often cries [] Exhaustion [] Unable to work [] Unable to attend presybeterian [] Unable to walk/stand [] Unable to read [] Unable to drive [] Unable to eat/drink [] Unable to sleep [] Unable to be with family [] Patient intubated [] Other: Summary: Pt very confused and difficult to communicate with. I spoke with her nurse, and this is normal for her. They are awaiting a transfer to a nursing facility. Time spent with patient: <5 mins
[2020-01-02 12:00] VITALS: BP 160/81; PULSE 91; RESP 18; TEMP 37.2; O2SAT 96
--- NOTE | 2020-01-02 12:53 | P.PN_ITS ---
Subjective Subjective: Interval history: She appears calm, not in any discomfort. Watching TV. When asked where she is she kind of looks around, but does not provide an answer. Does not remember what year it is. When asked about her name, takes a little bit of time to think about it, and says Ryann, asked about last name does say it correctly. Vitals/I&O/Wt Last Vital Signs Temp 98.9 F 01/02/20 12:00 Pulse 91 01/02/20 12:00 Resp 18 01/02/20 12:00 BP 160/81 01/02/20 12:00 Pulse Ox 96 01/02/20 12:00 01/01/20 01/02/20 01/02/20 22:59 06:59 14:59 Intake Total 240 / 360 0 / 360 Output Total 0 / 0 Balance 240 / 360 0 / 360 Physical Exam Const: COMMON NORMALS: no acute distress GENERAL APPEARANCE: comfortable and frail appearing ORIENTATION/CONSCIOUSNESS: Yes oriented to person; not oriented to place and not oriented to time HENMT: COMMON NORMALS: oropharynx normal Neck/C-Spine: COMMON NORMALS: no JVD Resp: COMMON NORMALS: normal respiratory effort and clear to auscultation bilaterally AUSCULTATION: clear to auscultation bilaterally Cardio: COMMON NORMALS: no JVD, regular rhythm, S1 normal heart sound present, S2 normal heart sound present and No murmurs present (Cardio) RHYTHM: regular rhythm HEART SOUNDS: S1 normal heart sound present and S2 normal heart sound present GI: COMMON NORMALS: Normal to inspection, nondistended, normoactive bowel sounds present, Soft to palpation and non-tender PALPATION: Yes Soft to palpation Extremity: COMMON NORMALS: no joint enlargement and no pedal edema Neuro: COMMON NORMALS: moves all extremities SENSORIUM/ORIENTATION: Yes oriented to person, No oriented to place and No oriented to time Skin: COMMON NORMALS: no rashes or lesions noted GENERAL SKIN EXAM: no rash es or lesions noted Urinary Catheter Management^: Irwin: Cath Placed During This Visit: yes, but has since been removed by the nurse Reason for Continuing Indwelling Catheter: Decision to DC Catheter Urinary Catheter Date of Insertion: 12/21/19 Urinary Catheter Time of Insertion: 11:50 Date Urinary Catheter Removed: 12/26/19 Time Urinary Catheter Discontinued: 10:40 Data : 12/30/19 02:44 12/30/19 02:44 A&P Assessment and plan (1) Dementia: Today she is comfortable, not in any discomfort. She is oriented to person, but not place or year. She is able to follow simple commands. Does not provide any historical information. Pending approval for facility placement. Pending process for obtaining guardianship. Slightly more animated today, not oriented. No insight into her condition. Not in any discomfort. Psychiatry assessment appreciated. Appreciate also case management assistance with disposition planning, arrangements for guardianship. At this time she continues to require significant assistance with activities of daily life. Despite improvement in metabolic abnormalities, without evidence of active infection, or other acute problems, she remains awake, alert, no discomfort, however, not oriented, and without insight into her condition. Status: Acute (2) Acute hypernatremia: Recheck in the morning. Improved. Encourage oral nutrition and hydration. Note mild hyponatremia. Slightly worse from 12/25 at 135. [place] salt intake in diet. Needs assistance with feeding. Status: Acute (3) Encephalopathy acute: Remains alert, not in distress or discomfort, interactive, although unable to provide very much information beyond very basic questions. Does not know where she is, or what year it is. She is comfortable at rest, polite, tries to be cooperative, however, having trouble completing any more complex tasks then taking breaths or lifting her arms. Baseline is unknown. She is awake and alert, cooperative, takes a while to consider her answers, not oriented to place or date. Says she is feeling all right. Is not sure why she is here. CT head demonstrates no CVA. Mild ex vacuo ventriculomegaly noted. Frontotempo ral atrophy. B12, TSH are normal. She is receiving thiamine by mouth. Status: Acute (4) Dehydration: Resolved Status: Acute (5) Hypercalcemia: Significant elevation was due to dehydration. Resolved. Would monitor, and if recurrence may need additional follow-up/investigation. Calcium level now normal. Parathyroid hormone was normal. Status: Acute (6) Elevated lactic acid level: Secondary to dehydration Status: Acute (7) Elevated troponin: Type II elevation. Status: Acute Additional A&P Information Transaminitis, not present on admission. Mild. Ammonia level normal. Recheck level. Mild thrombocytopenia. Resolved. Mild hypokalemia, supplemented Zoloft started for depression Full code Heparin for DVT prophylaxis Attestations Medical Necessity Statement*: Continue admission pending placement to [facility], and guardianship. Coding Level of Care Code Acute Equity Structurer for [facility] Diagnoses Dementia F03.90 Acute hypernatremia E87.0 Encephalopathy acute G93.40 Dehydration E86.0 Hypercalcemia E83.52 Elevated lactic acid level R79.89 Elevated troponin R79.89
[2020-01-02 16:00] VITALS: BP 164/89; PULSE 96; RESP 18; TEMP 37.2
--- NOTE | 2020-01-02 16:36 | P.PN_ITS ---
Subjective NPU Subjective: Interval history: Sola presented today continuing to show the small advances that she has with focusing and attention, although with continued deficiencies, but certainly seeming clearer and more functional than when she first came in. It is unclear what her baseline is. She continued to be a greater participant in conversational give and take with occasional non responses still. I explained to her that I think it would be appropriate to increase the Zoloft tomorrow. I reviewed the risks, benefits, and alternatives of doing so. It is unclear whether she understood. Mental Status Exam MSE Comments: This is a well-nourished, well-developed, elderly, white female, in a hospital gown, with adequate grooming and improved eye contact. No abnormal movements, except for significant psychomotor retardation. More cooperative with exam in no acute distress. Speech still was limited with limited spontaneous verbalizations, but more than yesterday, with decreased rate and volume. Mood described as OK; affect flat and subdued. Thought process, linear. Thought content: did not answer questions but did not demonstrate self-directed or outwardly directed aggression; she did not appear to be attending to internal stimuli. Attention and concentration were impaired, but improving, and memory was unable to be obtained, but none were formally tested. She is alert but wit hout orientation. Insight and judgment are impaired. Vitals/I&O/Wt Last Vital Signs Temp 98.9 F 01/02/20 12:00 Pulse 91 01/02/20 12:00 Resp 18 01/02/20 12:00 BP 160/81 01/02/20 12:00 Pulse Ox 96 01/02/20 12:00 01/02/20 01/02/20 01/02/20 06:59 14:59 22:59 Intake Total 0 / 360 120 / 120 Balance 0 / 360 120 / 120 Physical Exam Urinary Catheter Management^: Irwin: Cath Placed During This Visit: yes, but has since been removed by the nurse Reason for Continuing Indwelling Catheter: Decision to DC Catheter Urinary Catheter Date of Insertion: 12/21/19 Urinary Catheter Time of Insertion: 11:50 Date Urinary Catheter Removed: 12/26/19 Time Urinary Catheter Discontinued: 10:40 Data NPU : 01/03/20 03:27 01/03/20 03:27 A&P Additional A&P Information (1) Encephalopathy acute: (2) Dementia: This is an 84 year old, white female, who presents with altered mental status with no real sense of what her previous level of functioning was. RECOMMENDATION AND PLAN: Continue current medication. Zoloft to 75 mg po qam Continue to monitor for improvement. Will look for collateral information regarding baseline. Will continue to follow. Patient clearly lacks capacity for decision-making at this time. Attestations NPU Medical Necessity Statement*: N/A. Please see primary team report for medical necessity. Will continue to evaluate for any need for inpatient geriatric psychiatric services. Coding Level of Care Code Acute Microbial Specialist for [facility]
[2020-01-02 20:00] VITALS: BP 120/73; PULSE 92; RESP 20; TEMP 36.9; O2SAT 97
[2020-01-03] VITALS (8 sets, daily range): BP systolic 124–181; BP diastolic 68–85; PULSE 79–103; RESP 18–20; TEMP 36.2–36.9; O2SAT 94–97
[2020-01-03 03:40] LABS: Basophils % 0.4 %; Eosinophils # 0.1 10^3/uL (0.0-0.8); Eosinophils % 0.8 %; Hematocrit 33.8 % (37.0-47.0); Hemoglobin 11.2 g/dL (11.5-15.3); Lymphocytes # 1.6 10^3/uL (0.8-4.8); Lymphocytes % 18.8 %; Mean Corpuscular HGB Conc 33.1 g/dL (30.0-36.0); Mean Corpuscular Hemoglobin 31.6 pg (28.0-34.0); Mean Corpuscular Volume 95.5 fL (81-99); Mean Platelet Volume 9.7 fL (7.4-10.4); Monocytes # 0.7 10^3/uL (0.2-0.9); Monocytes % 8.9 %; Neutrophils # 5.86 10^3/uL (1.8-7.7); Neutrophils % 70.4 %; Nucleated Red Blood Cells % 0 %; Platelet Count 320 10^3/cmm (130-400); Red Blood Count 3.54 10^6/uL (4.1-5.3); Red Cell Distribution Width 12.4 % (12.1-15.1); White Blood Count 8.3 10^3/uL (4.0-10.0)
[2020-01-03 03:59] LABS: Alanine Aminotransferase 17 U/L (0-33); Albumin Level 2.9 g/dL (3.5-5.2); Alkaline Phosphatase 93 IU/L (35-105); Anion Gap 13.8 (5-19); Aspartate Amino Transferase 25 U/L (0-32); Blood Urea Nitrogen 17 mg/dL (8-23); Calcium 10.1 mg/dL (8.5-10.5); Carbon Dioxide 24 mmol/L (22-29); Chloride 100 mmol/L (98-107); Globulin 3.3 g/dL (1.3-4.6); Glucose 107 mg/dL (65-115); Osmolality Calculated 275 mOsm/kg (285-295); Potassium 3.8 mmol/L (3.5-5.1); Sodium 134 mmol/L (136-145); Total Bilirubin 0.6 mg/dL (0.15-1.2); Total Protein 6.2 g/dL (6.6-8.7)
[2020-01-03] MEDS: thiamine 100 mg Tablet PO (09:50)
[2020-01-03] MEDS: sertraline 50 mg Tablet 75 MG PO (09:51)
[2020-01-03] MEDS: heparin 5,000 unit/mL INJ 1 mL 5000 UNIT SUBCUT ×2 (09:54→20:44)
--- NOTE | 2020-01-03 19:54 | P.PN_ITS ---
Subjective Subjective: Interval history: Chart reviewed, resting quietly in bed, hemodynamically stable, minimal tachycardia, on room air. Response to her name upon entering the room, when asked where she is looks around but is unable to provide an answer. Medications: Reviewed: Yes Medication Review Details: Active Medications Generic Name Dose Route Start Last Admin Trade Name Freq PRN Reason Stop Dose Admin Acetaminophen 650 mg 12/21/19 15:14 Tylenol PO Q6H PRN Mild/Mod Pain Or Temp >/= 101 Heparin Sodium (Be ef Lung) 5,000 unit 12/21/19 15:30 01/03/20 09:54 Heparin SUBCUT 5,000 unit Q12H YFN Administration Ondansetron HCl 4 mg 12/21/19 15:14 Zofran IVP Q6H PRN NAUSEA AND VOMITI NG Sertraline HCl 75 mg 01/03/20 09:00 01/03/20 09:51 Zoloft PO 75 mg DAILY YFN Administration Thiamine Mononitra te 100 mg 12/26/19 09:00 01/03/20 09:50 Vitamin B-1 PO 100 mg DAILY YFN Administration No Known Allergies Allergy (Verified 11/07/19 09:48) Vitals/I&O/Wt Last Vital Signs Temp 97.2 F L 01/03/20 16:00 Pulse 103 H 01/03/20 16:00 Resp 18 01/03/20 16:00 BP 124/68 01/03/20 16:00 Pulse Ox 96 01/03/20 16:00 01/03/20 01/03/20 01/03/20 06:59 14:59 22:59 Intake Total 100 / 340 420 / 420 Balance 100 / 340 420 / 420 Physical Exam Const: COMMON NORMALS: no acute distress and alert GENERAL APPEARANCE: cooperative, comfortable and frail appearing ORIENTATION/CONSCIOUSNESS: Yes awake and Yes oriented to person OTHER: -Looks appropriate for age HENMT: COMMON NORMALS: normocephalic, atraumatic, hearing grossly normal bilaterally and moist oral mucous membranes HEAD & SCALP: normocephalic and atraumatic Eye: COMMON NORMALS: Equal, round and reactive pupils present, EOMs intact bilaterally and conjunctivae normal CONJUNCTIVA: Yes conjunctivae normal PUPIL: Yes Equal, round and reactive pupils present Neck/C-Spine: COMMON NORMALS: full ROM GENERAL: Yes normal visual inspection and Yes trachea midline Resp: COMMON NORMALS: normal respiratory effort, No retractions, No use of accessory muscles and clear to auscultation bilaterally EFFORT & INSPECTION: Yes able to speak in complete sentences, Yes symmetric chest movement and No tachypneic AUSCULTATION: clear to auscultation bilaterally OTHER: -on RA Cardio: COMMON NORMALS: regular rate, regular rhythm, S1 normal heart sound present, S2 normal heart sound present and No murmurs present (Cardio) RATE: regular rate RHYTHM: regular rhythm HEART SOUNDS: S1 normal heart sound present and S2 normal heart sound present GI: COMMON NORMALS: Normal to inspection, nondistended, normoactive bowel sounds present, Soft to palpation and non-tender PALPATION: Yes Soft to palpation Extremity: COMMON NORMALS: normal to inspection, full ROM and no clubbing, cyanosis or edema; negative for no pedal edema Neuro: COMMON NORMALS: moves all extremities, no focal motor deficits and no sensory deficits noted SENSORIUM/ORIENTATION: Yes alert and Yes oriented to person Psych: COMMON NORMALS: cooperative and normal affect SPEECH: Yes slow and Yes soft MEMORY/COGNITION: Yes cognition grossly impaired INSIGHT: Limited insight present (Psych) Skin: COMMON NORMALS: no rashes or lesions noted, no jaundice, no petechiae and no mottling GENERAL SKIN EXAM: no rashes or lesions noted Urinary Catheter Management^: Irwin: Cath Placed During This Visit: yes, but has since been removed by the nurse Reason for Continuing Indwelling Catheter: Decision to DC Catheter Urinary Catheter Date of Insertion: 12/21/19 Urinary Catheter Time of Insertion: 11:50 Date Urinary Catheter Removed: 12/26/19 Time Urinary Catheter Discontinued: 10:40 Data : 01/03/20 03:27 01/03/20 03:27 A&P Assessment and plan (1) Dementia: -Appears to be alert and oriented to self primarily, able to follow very simple commands -Appreciate psychiatry evaluation; on Zoloft -Strict fall precautions, reorient as needed -Lacks decision-making capacity; pending decision on guardianship and subsequent placement Status: Acute Qualifiers: Dementia type: unspecified type Dementia behavioral disturbance: without behavioral disturbance Qualified Code(s): F03.90 - Unspecified dementia without behavioral disturbance (2) Acute hypernatremia: -Sodium levels within normal limits -[place] salt intake Status: Resolved (3) Dehydration: -Encourage oral hydration Status: Resolved (4) Hypercalcemia: -likely secondary to dehydration -PTH normal Status: Resolved (5) Elevated troponin: -likely type II due to demand ischemia Status: Acute (6) Encephalopathy acute: -has persisted even after correction of electrolyte abnormalities -negative acute findings on CT though noted frontotemporal atrophy -TSH, B12 levels wnl -on oral thiamine Status: Acute Additional A&P Information -Previously noted transaminitis now resolved -Had been noted to have mild thrombocytopenia, resolved -dysphagia diet -DVT ppx with heparin -Dispo: pending guardianship and placement ([facility]) -Code status: FULL code Attestations Medical Necessity Statement*: Patient requires hospitalization for continued management of dementia, pending appropriate disposition. Time Spent in Patient Care: Greater than 35 minutes (>than 50% of time spent in counselling and/or direct pt care on unit) . Coding Level of Care Code Acute Biology Laboratory Assistant for [facility]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
[2020-01-04 04:00] VITALS: BP 165/82; PULSE 87; RESP 20; TEMP 36.3; O2SAT 95
[2020-01-04 08:00] VITALS: BP 163/81; PULSE 77; RESP 16; TEMP 36.9; O2SAT 97
[2020-01-04] MEDS: heparin 5,000 unit/mL INJ 1 mL 5000 UNIT SUBCUT ×2 (08:13→22:09)
[2020-01-04] MEDS: sertraline 50 mg Tablet 75 MG PO (08:14)
[2020-01-04] MEDS: thiamine 100 mg Tablet PO (08:14)
[2020-01-04] MEDS: acetaminophen 325 mg Tablet 650 MG PO (09:17)
[2020-01-04 11:09] VITALS: BP 171/96; PULSE 93; RESP 18; TEMP 36.9; O2SAT 95
[2020-01-04 11:17] VITALS: BP 160/80
--- NOTE | 2020-01-04 13:39 | P.PN_ITS ---
Subjective Subjective: Interval history: Hypertensive, afebrile, on RA, incontinent. Resting quietly in bed, cries out during repositioning and cleaning, otherwise essentially non-verbal. Medications: Reviewed: Yes Medication Review Details: Active Medications Generic Name Dose Route Start Last Admin Trade Name Freq PRN Reason Stop Dose Admin Acetaminophen 650 mg 12/21/19 15:14 01/04/20 09:17 Tylenol PO 650 mg Q6H PRN Administration Mild/Mod Pain Or Temp >/= 101 Amlodipine Besylat e 2.5 mg 01/04/20 13:40 Norvasc PO DAILY YFN Heparin Sodium (Be ef Lung) 5,000 unit 12/21/19 15:30 01/04/20 08:13 Heparin SUBCUT 5,000 unit Q12H YFN Administration Metoprolol Tartrat e 12.5 mg 01/04/20 13:40 Lopressor PO 01/04/20 13:41 BID ONE Ondansetron HCl 4 mg 12/21/19 15:14 Zofran IVP Q6H PRN NAUSEA AND VOMITI NG Sertraline HCl 75 mg 01/03/20 09:00 01/04/20 08:14 Zoloft PO 75 mg DAILY YFN Administration Thiamine Mononitra te 100 mg 12/26/19 09:00 01/04/20 08:14 Vitamin B-1 PO 100 mg DAILY YFN Administration No Known Allergies Allergy (Verified 11/07/19 09:48) Vitals/I&O/Wt Last Vital Signs Temp 98.4 F 01/04/20 11:09 Pulse 93 01/04/20 11:09 Resp 18 01/04/20 11:09 BP 160/80 01/04/20 11:17 Pulse Ox 95 01/04/20 11:09 01/03/20 01/04/20 01/04/20 22:59 06:59 14:59 Intake Total 60 / 480 Output Total 0 / 0 Balance 60 / 480 0 / 480 Physical Exam Const: COMMON NORMALS: no acute distress and alert GENERAL APPEARANCE: cooperative, comfortable and frail appearing ORIENTATION/CONSCIOUSNESS: Yes awake and Yes oriented to person OTHER: -Looks appropriate for age HENMT: COMMON NORMALS: normocephalic, atraumatic, hearing grossly normal bilaterally and moist oral mucous membranes HEAD & SCALP: normocephalic and atraumatic TEETH & GINGIVA: Yes poor dentition Eye: COMMON NORMALS: Equal, round and reactive pupils present, EOMs intact bi laterally and conjunctivae normal CONJUNCTIVA: Yes conjunctivae normal PUPIL: Yes Equal, round and reactive pupils present Neck/C-Spine: COMMON NORMALS: full ROM GENERAL: Yes normal visual insp ection and Yes trachea midline Resp: COMMON NORMALS: normal respiratory effort, No retractions, No use of accessory muscles and clear to auscultation bilaterally EFFORT & INSPECTION: Yes able to speak in complete sentences, Yes symmetric chest movement and No tachypneic AUSCULTATION: clear to auscultation bilaterally OTHER: -on RA Cardio: COMMON NORMALS: regular rate, regular rhythm, S1 normal heart sound present, S2 normal heart sound present and No murmurs present (Cardio) RATE: regular rate RHYTHM: regular rhythm HEART SOUNDS: S1 normal heart sound present and S2 normal heart sound present GI: COMMON NORMALS: Normal to inspection, nondistended, normoactive bowel sounds present, Soft to palpation and non-tender PALPATION: Yes Soft to palpation Extremity: COMMON NORMALS: normal to inspection, full ROM and no clubbing, cyanosis or edema; negative for no pedal edema Neuro: COMMON NORMALS: moves all extremities, no focal motor deficits and no sensory deficits noted SENSORIUM/ORIENTATION: Yes alert and Yes oriented to person Psych: COMMON NORMALS: cooperative and normal affect SPEECH: Yes slow and Yes soft MEMORY/COGNITION: Yes cognition grossly impaired INSIGHT: Limited insight present (Psych) Skin: COMMON NORMALS: no rashes or lesions noted, no jaundice, no petechiae and no mottling GENERAL SKIN EXAM: no rashes or lesions noted Urinary Catheter Management^: Irwin: Cath Placed During This Visit: yes, but has since been removed by the nurse Reason for Continuing Indwelling Catheter: Decision to DC Catheter Urinary Catheter Date of Insertion: 12/21/19 Urinary Catheter Time of Insertion: 11:50 Date Urinary Catheter Removed: 12/26/19 Time Urinary Catheter Discontinued: 10:40 Data : 01/03/20 03:27 01/03/20 03:27 A&P Assessment and plan (1) Dementia: -Appears to be alert and oriented to self primarily, able to follow very simple commands -Appreciate psychiatry evaluation; on Zoloft -Strict fall precautions, reorient as needed -Lacks decision-making capacity; pending decision on guardianship and subsequent placement Status: Acute Qualifiers: Dementia behavioral disturbance: without behavioral disturbance Dementia type: unspecified type Qualified Code(s): F03.90 - Unspecified dementia without behavioral disturbance (2) Acute hypernatremia: -Sodium levels within normal limits -[place] salt intake Status: Resolved (3) Dehydration: -Encourage oral hydration Status: Resolved (4) Hypercalcemia: -likely secondary to dehydration -PTH normal Status: Resolved (5) Elevated troponin: -likely type II due to demand ischemia Status: Acute (6) Encephalopathy acute: -has persisted even after correction of electrolyte abnormalities -negative acute findings on CT though noted frontotemporal atrophy -TSH, B12 levels wnl -on oral thiamine Status: Acute Additional A&P Information -Previously noted transaminitis now resolved -Had been noted to have mild thrombocytopenia, resolved -hypertensive, will add low dose Amlodipine and BB for now -dysphagia diet; assistance with meals -DVT ppx with heparin -Dispo: pending guardianship and placement ([facility] is current [facility]st choice) -Code status: FULL code Attestations Medical Necessity Statement*: Patient requires hospitalization for continued care pending assignment of guardianship and appropriate disposition. Time Spent in Patient Care: 16 - 35 minutes (>than 50% of time spent in counselling and/or direct pt care on unit) . Coding Level of Care Code Acute Operator Command Support Systems for Chuy Baer Exam Comprehensive Diagnoses Dementia F03.90 Dementia behavioral disturbance: without behavioral disturbance Dementia type: unspecified type Acute hypernatremia E87.0 Dehydration E86.0 Hypercalcemia E83.52 Elevated troponin R79.89 Encephalopathy acute G93.40
[2020-01-04] MEDS: metoprolol tartrate 25 mg Tablet 12.5 MG PO (15:27)
[2020-01-04] MEDS: amlodipine 5 mg Tablet 2.5 MG PO (15:28)
[2020-01-04 16:00] VITALS: BP 146/86; PULSE 84; RESP 16; TEMP 36.6; O2SAT 94
[2020-01-04 19:38] VITALS: BP 148/79; PULSE 71; RESP 20; TEMP 37.1; O2SAT 95
[2020-01-05] VITALS: BP 137/86; PULSE 86; RESP 20; TEMP 36.9; O2SAT 94
[2020-01-05 04:00] VITALS: BP 171/91; PULSE 82; RESP 20; TEMP 36.8; O2SAT 95
[2020-01-05 07:58] VITALS: BP 174/76; PULSE 78; RESP 16; TEMP 36.1; O2SAT 92
[2020-01-05] MEDS: heparin 5,000 unit/mL INJ 1 mL 5000 UNIT SUBCUT ×2 (08:17→21:25)
[2020-01-05] MEDS: thiamine 100 mg Tablet PO (08:17)
[2020-01-05] MEDS: amlodipine 5 mg Tablet 2.5 MG PO (08:17)
[2020-01-05] MEDS: sertraline 50 mg Tablet 75 MG PO (08:17)
--- NOTE | 2020-01-05 08:45 | PC.NURSE ---
Patient was encouraged to eat and attempted to help her, but she shook her head no after two bites and would not continue to eat. Drank most of her milk for breakfast though.
[2020-01-05 11:15] VITALS: BP 144/78; PULSE 76; RESP 18; TEMP 36.4; O2SAT 95
[2020-01-05 15:46] VITALS: BP 159/87; PULSE 82; RESP 20; TEMP 36.5; O2SAT 97
[2020-01-05 19:40] VITALS: BP 155/78; PULSE 89; RESP 16; TEMP 36.8; O2SAT 95
--- NOTE | 2020-01-05 21:24 | P.PN_ITS ---
Subjective Subjective: Interval history: Resting quietly in bed, assisted nursing staff with bed change, patient cries out during any repositioning otherwise no apparent distress. Remains somewhat hypertensive so will increase amlodipine dose for more optimal blood pressure control. Hearing has been postponed to likely next week. [facility] has declined the patient. Medications: Reviewed: Yes Medication Review Details: Active Medications Generic Name Dose Route Start Last Admin Trade Name Freq PRN Reason Stop Dose Admin Acetaminophen 650 mg 12/21/19 15:14 01/04/20 09:17 Tylenol PO 650 mg Q6H PRN Administration Mild/Mod Pain Or Temp >/= 101 Amlodipine Besylat e 2.5 mg 01/04/20 13:40 01/05/20 08:17 Norvasc PO 2.5 mg DAILY YFN Administration Heparin Sodium (Be ef Lung) 5,000 unit 12/21/19 15:30 01/05/20 08:17 Heparin SUBCUT 5,000 unit Q12H YFN Administration Ondansetron HCl 4 mg 12/21/19 15:14 Zofran IVP Q6H PRN NAUSEA AND VOMITI NG Sertraline HCl 75 mg 01/03/20 09:00 01/05/20 08:17 Zoloft PO 75 mg DAILY YFN Administration Thiamine Mononitra te 100 mg 12/26/19 09:00 01/05/20 08:17 Vitamin B-1 PO 100 mg DAILY YFN Administration No Known Allergies Allergy (Verified 11/07/19 09:48) Vitals/I&O/Wt Last Vital Signs Temp 98.3 F 01/05/20 19:40 Pulse 89 01/05/20 19:40 Resp 16 01/05/20 19:40 BP 155/78 01/05/20 19:40 Pulse Ox 95 01/05/20 19:40 01/05/20 01/05/20 01/05/20 06:59 14:59 22:59 Intake Total 580 / 580 100 / 680 Output Total 0 / 0 Balance 0 / 0 580 / 580 100 / 680 Physical Exam Const: COMMON NORMALS: no acute distress and alert GENERAL APPEARANCE: cooperative, comfortable and frail appearing ORIENTATION/CONSCIOUSNESS: Yes awake and Yes oriented to person OTHER: -Looks appropriate for age HENMT: COMMON NORMALS: normocephalic, atraumatic, hearing grossly normal bilaterally and moist oral mucous membranes HEAD & SCALP: normocephalic and atraumatic TEETH & GINGIVA: Yes poor dentition Eye: COMMON NORMALS: Equal, round and reactive pupils present, EOMs intact bilaterally and conjunctivae normal CONJUNCTIVA: Yes conjunctivae normal PUPIL: Yes Equal, round and reactive pupils present Neck/C-Spine: COMMON NORMALS: full ROM GENERAL: Yes normal visual inspection and Yes trachea midline Resp: COMMON NORMALS: normal respiratory effort, No retractions, No use of accessory muscles and clear to auscultation bilaterally EFFORT & INSPECTION: Yes able to speak in complete sentences, Yes symmetric chest movement and No tachypneic AUSCULTATION: clear to auscultation bilaterally OTHER: -on RA Cardio: COMMON NORMALS: regular rate, regular rhythm, S1 normal heart sound present, S2 normal heart sound present and No murmurs present (Cardio) RATE: regular rate RHYTHM: regular rhythm HEART SOUNDS: S1 normal heart sound present and S2 normal heart sound present GI: COMMON NORMALS: Normal to inspection, nondistended, normoactive bowel noreen nds present, Soft to palpation and non-tender PALPATION: Yes Soft to palpation Extremity: COMMON NORMALS: normal to inspection, full ROM and no clubbing, cyanosis or edema; negative for no pedal edema Neuro: COMMON NORMALS: moves all extremities, no focal motor deficits and no sensory deficits noted SENSORIUM/ORIENTATION: Yes alert and Yes oriented to person Psych: COMMON NORMALS: cooperative and normal affect SPEECH: Yes slow and Yes soft MEMORY/COGNITION: Yes cognition grossly impaired INSIGHT: Limited insight present (Psych) Skin: COMMON NORMALS: no rashes or lesions noted, no jaundice, no petechiae and no mottling GENERAL SKIN EXAM: no rashes or lesions noted Urinary Catheter Management^: Irwin: Cath Placed During This Visit: yes, but has since been removed by the nurse Reason for Continuing Indwelling Catheter: Decision to DC Catheter Urinary Catheter Date of Insertion: 12/21/19 Urinary Catheter Time of Insertion: 11:50 Date Urinary Catheter Removed: 12/26/19 Time Urinary Catheter Discontinued: 10:40 Data : 01/03/20 03:27 01/03/20 03:27 A&P Assessment and plan (1) Dementia: -Appears to be alert and oriented to self primarily, able to follow very simple commands -Appreciate psychiatry evaluation; on Zoloft -Strict fall precautions, reorient as needed -Lacks decision-making capacity; pending decision on guardianship and subsequent placement Status: Acute Qualifiers: Dementia type: unspecified type Dementia behavioral disturbance: without behavioral disturbance Qualified Code(s): F03.90 - Unspecified dementia without behavioral disturbance (2) Acute hypernatremia: -Sodium levels within normal limits -[place] salt intake Status: Resolved (3) Dehydration: -Encourage oral hydration Status: Resolved (4) Hypercalcemia: -likely secondary to dehydration -PTH normal Status: Resolved (5) Elevated troponin: -likely type II due to demand ischemia Status: Acute (6) Encephalopathy acute: -has persisted even after correction of electrolyte abnormalities -negative acute findings on CT though noted frontotemporal atrophy -TSH, B12 levels wnl -on oral thiamine Status: Acute Additional A&P Information -Previously noted transaminitis now resolved -Had been noted to have mild thrombocytopenia, resolved -hypertensive, will add low dose Amlodipine and BB for now -dysphagia diet; assistance with meals -DVT ppx with heparin -Dispo: pending guardianship hearing (postponed to next week) and placement ([facility] has declined the patient stating that she is a flight risk) -Code status: FULL code Attestations Medical Necessity Statement*: Patient requires hospitalization for continued care pending appropriate disposition and assignment of guardianship. Time Spent in Patient Care: 16 - 35 minutes (>than 50% of time spent in counselling and/or direct pt care on unit) . Coding Level of Care Code Acute Pre Sales Technical Engineer for Chuy Batresd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
[2020-01-06] VITALS: BP 151/83; PULSE 84; RESP 18; TEMP 37.2; O2SAT 95
[2020-01-06 03:52] VITALS: BP 163/82; PULSE 92; RESP 16; TEMP 37; O2SAT 96
[2020-01-06 08:00] VITALS: BP 153/75; PULSE 73; RESP 18; TEMP 36.9; O2SAT 96
--- NOTE | 2020-01-06 09:15 | PC.SOCIAL ---
IMM not completed due to pt not able to comprehend and in process of obtaining a guardian.
[2020-01-06] MEDS: sertraline 50 mg Tablet 75 MG PO (10:18)
[2020-01-06] MEDS: thiamine 100 mg Tablet PO (10:18)
[2020-01-06] MEDS: heparin 5,000 unit/mL INJ 1 mL 5000 UNIT SUBCUT ×2 (10:18→21:17)
[2020-01-06] MEDS: amlodipine 5 mg Tablet PO (10:19)
[2020-01-06] MEDS: acetaminophen 325 mg Tablet 650 MG PO (10:35)
[2020-01-06 11:31] VITALS: BP 180/92; PULSE 84; RESP 14; TEMP 37.3; O2SAT 94
--- NOTE | 2020-01-06 11:40 | PM.PN ---
Subjective Subjective: Interval history: Resting quietly in bed though seems more withdrawn today, staff appetite has been mediocre though she seems to drink well, will add Ensure to her meals. Increased dose of amlodipine for more optimal blood pressure control. Medications: Reviewed: Yes Medication Review Details: Active Medications Generic Name Dose Route Start Last Admin Trade Name Freq PRN Reason Stop Dose Admin Acetaminophen 650 mg 12/21/19 15:14 01/06/20 10:35 Tylenol PO 650 mg Q6H PRN Administration Mild/Mod Pain Or Temp >/= 101 Amlodipine Besylat e 5 mg 01/06/20 09:00 01/06/20 10:19 Norvasc PO 5 mg DAILY YFN Administration Heparin Sodium (Be ef Lung) 5,000 unit 12/21/19 15:30 01/06/20 10:18 Heparin SUBCUT 5,000 unit Q12H YFN Administration Ondansetron HCl 4 mg 12/21/19 15:14 Zofran IVP Q6H PRN NAUSEA AND VOMITI NG Sertraline HCl 75 mg 01/03/20 09:00 01/06/20 10:18 Zoloft PO 75 mg DAILY YFN Administration Thiamine Mononitra te 100 mg 12/26/19 09:00 01/06/20 10:18 Vitamin B-1 PO 100 mg DAILY YFN Administration No Known Allergies Allergy (Verified 11/07/19 09:48) Vitals/I&O/Wt Last Vital Signs Temp 99.1 F 01/06/20 11:31 Pulse 84 01/06/20 11:31 Resp 14 01/06/20 11:31 BP 180/92 01/06/20 11:31 Pulse Ox 94 01/06/20 11:31 01/05/20 01/06/20 01/06/20 22:59 06:59 14:59 Intake Total 100 / 680 120 / 800 Balance 100 / 680 120 / 800 Physical Exam Const: COMMON NORMALS: no acute distress and alert GENERAL APPEARANCE: cooperative, comfortable and frail appearing ORIENTATION/CONSCIOUSNESS: Yes awake and Yes oriented to person OTHER: -Looks appropriate for age HENMT: COMMON NORMALS: normocephalic, atraumatic, hearing grossly normal bilaterally and moist oral mucous membranes HEAD & SCALP: normocephalic and atraumatic TEETH & GINGIVA: Yes poor dentition Eye: COMMON NORMALS: Equal, round and reactive pupils present, EOMs intact bilaterally and conjunctivae normal CONJUNCTIVA: Yes conjunctivae normal PUPIL: Yes Equal, round and reactive pupils present Neck/C-Spine: COMMON NORMALS: full ROM GENERAL: Yes normal visual inspection and Yes trachea midline Resp: COMMON NORMALS: normal respiratory effort, No retractions, No use of accessory muscles and clear to auscultation bilaterally EFFORT & INSPECTION: Yes able to speak in complete sentences, Yes symmetric chest movement and No tachypneic AUSCULTATION: clear to auscultation bilaterally OTHER: -on RA Cardio: COMMON NORMALS: regular rate, regular rhythm, S1 normal heart sound present, S2 normal heart sound present and No murmurs present (Cardio) RATE: regular rate RHYTHM: regular rhythm HEART SOUNDS: S1 normal heart sound present and S2 normal heart sound present GI: COMMON NORMALS: Normal to inspection, nondistended, normoactive bowel sounds present, Soft to palpation and non-tender PALPATION: Yes Soft to palpation Extremity: COMMON NORMALS: normal to inspection, full ROM and no clubbing, cyanosis or edema; negative for no pedal edema Neuro: COMMON NORMALS: moves all extremities, no focal motor deficits and no sensory deficits noted SENSORIUM/ORIENTATION: Yes alert and Yes oriented to person Psych: COMMON NORMALS: cooperative SPEECH: Yes slow and Yes soft MOOD & AFFECT: Yes Flat affect present (seems more withdrawn today) MEMORY/COGNITION: Yes cognition grossly impaired INSIGHT: Limited insight present (Psych) Skin: COMMON NORMALS: no jaundice, no petechiae and no mottling NARRATIVE SKIN EXAM: -some excoriation on sacrum GENERAL SKIN EXAM: Excoriation Urinary Catheter Management^: Irwin: Cath Placed During This Visit: yes, but has since been removed by the nurse Reason for Continuing Indwelling Catheter: Decision to DC Catheter Urinary Catheter Date of Insertion: 12/21/19 Urinary Catheter Time of Insertion: 11:50 Date Urinary Catheter Removed: 12/26/19 Time Urinary Catheter Discontinued: 10:40 Data : 01/03/20 03:27 01/03/20 03:27 A&P Assessment and plan (1) Dementia: -Appears to be alert and oriented to self primarily, able to follow very simple commands -Appreciate psychiatry evaluation; on Zoloft -Strict fall precautions, reorient as needed -Lacks decision-making capacity; pending decision on guardianship and subsequent placement Status: Acute Qualifiers: Dementia type: unspecified type Dementia behavioral disturbance: without behavioral disturbance Qualified Code(s): F03.90 - Unspecified dementia without behavioral disturbance (2) Acute hypernatremia: -Sodium levels within normal limits -[place] salt intake Status: Resolved (3) Dehydration: -Encourage oral hydration Status: Resolved (4) Hypercalcemia: -likely secondary to dehydration -PTH normal Status: Resolved (5) Elevated troponin: -likely type II due to demand ischemia Status: Acute (6) Encephalopathy acute: -has persisted even after correction of electrolyte abnormalities -negative acute findings on CT though noted frontotemporal atrophy -TSH, B12 levels wnl -on oral thiamine Status: Acute Additional A&P Information -Previously noted transaminitis now resolved -Had been noted to have mild thrombocytopenia, resolved -hypertensive, on Amlodipine and BB for now -dysphagia diet; assistance with meals, add Ensure for more nutritional support due to minimal appetite -DVT ppx with heparin -Dispo: pending guardianship hearing (scheduled for 01/09 @ 1300) and placement (accepted to [facility]) -Code status: FULL code Attestations Medical Necessity Statement*: Patient requires hospitalization for continued care pending appropriate disposition. Time Spent in Patient Care: less than 15 minutes (>than 50% of time spent in counselling and/or direct pt care on unit). Coding Level of Care Code Acute Tug Hand for Chuy Fwd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
[2020-01-06 16:00] VITALS: BP 149/85; PULSE 76; RESP 16; TEMP 36.9; O2SAT 94
[2020-01-06 20:00] VITALS: BP 163/70; PULSE 104; RESP 17; TEMP 37.2; O2SAT 94
[2020-01-07] VITALS: BP 148/88; PULSE 94; RESP 18; TEMP 36.9; O2SAT 95
[2020-01-07 04:00] VITALS: BP 159/82; PULSE 88; RESP 22; TEMP 37.1; O2SAT 96
[2020-01-07 08:00] VITALS: BP 156/80; PULSE 86; RESP 16; TEMP 36.9; O2SAT 97
[2020-01-07] MEDS: sertraline 50 mg Tablet 75 MG PO (09:02)
[2020-01-07] MEDS: heparin 5,000 unit/mL INJ 1 mL 5000 UNIT SUBCUT ×2 (09:03→21:39)
[2020-01-07] MEDS: amlodipine 5 mg Tablet PO (09:03)
[2020-01-07] MEDS: thiamine 100 mg Tablet PO (09:03)
--- NOTE | 2020-01-07 09:09 | PC.SOCIAL ---
IMM not completed due to pt unable to comprehend and in process of obtaining a guardian.
[2020-01-07 12:00] VITALS: BP 154/82; PULSE 83; RESP 18; TEMP 36.8; O2SAT 98
--- NOTE | 2020-01-07 14:36 | PM.PN ---
Subjective Subjective: Interval history: BP improved. Resting quietly in bed, no apparent distress, no acute overnight events reported. Remains confused though calm, flat affect. Medications: Reviewed: Yes Medication Review Details: Active Medications Generic Name Dose Route Start Last Admin Trade Name Freq PRN Reason Stop Dose Admin Acetaminophen 650 mg 12/21/19 15:14 01/06/20 10:35 Tylenol PO 650 mg Q6H PRN Administration Mild/Mod Pain Or Temp >/= 101 Amlodipine Besylat e 5 mg 01/06/20 09:00 01/07/20 09:03 Norvasc PO 5 mg DAILY YFN Administration Heparin Sodium (Be ef Lung) 5,000 unit 12/21/19 15:30 01/07/20 09:03 Heparin SUBCUT 5,000 unit Q12H YFN Administration Ondansetron HCl 4 mg 12/21/19 15:14 Zofran IVP Q6H PRN NAUSEA AND VOMITI NG Sertraline HCl 75 mg 01/03/20 09:00 01/07/20 09:02 Zoloft PO 75 mg DAILY YFN Administration Thiamine Mononitra te 100 mg 12/26/19 09:00 01/07/20 09:03 Vitamin B-1 PO 100 mg DAILY YFN Administration No Known Allergies Allergy (Verified 11/07/19 09:48) Vitals/I&O/Wt Last Vital Signs Temp 98.3 F 01/07/20 12:00 Pulse 83 01/07/20 12:00 Resp 18 01/07/20 12:00 BP 154/82 01/07/20 12:00 Pulse Ox 98 01/07/20 12:00 01/06/20 01/07/20 01/07/20 22:59 06:59 14:59 Intake Total 180 / 280 600 / 600 Output Total 3 / 3 Balance 180 / 280 597 / 597 Physical Exam Const: COMMON NORMALS: no acute distress and alert GENERAL APPEARANCE: cooperative, comfortable and frail appearing ORIENTATION/CONSCIOUSNESS: Yes awake and Yes oriented to person OTHER: -Looks appropriate for age HENMT: COMMON NORMALS: normocephalic, atraumatic, hearing grossly normal bilaterally and moist oral mucous membranes HEAD & SCALP: normocephalic and atraumatic TEETH & GINGIVA: Yes poor dentition Eye: COMMON NORMALS: Equal, round and reactive pupils present, EOMs intact bilaterally and conjunctivae normal CONJUNCTIVA: Yes conjunctivae normal PUPIL: Yes Equal, round and reactive pupils present Neck/C-Spine: COMMON NORMALS: full ROM GENERAL: Yes normal visual inspection and Yes trachea midline Resp: COMMON NORMALS: normal respiratory effort, No retractions, No use of accessory muscles and clear to auscultation bilaterally EFFORT & INSPECTION: Yes able to speak in complete sentences, Yes symmetric chest movement and No tachypneic AUSCULTATION: clear to auscultation bilaterally OTHER: -on RA Cardio: COMMON NORMALS: regular rate, regular rhythm, S1 normal heart sound present, S2 normal heart sound present and No murmurs present (Cardio) RATE: regular rate RHYTHM: regular rhythm HEART SOUNDS: S1 normal heart sound present and S2 normal heart sound present GI: COMMON NORMALS: Normal to inspection, nondistended, normoactive bowel sounds present, Soft to palpation and non-tender PALPATION: Yes Soft to palpation Extremity: COMMON NORMALS: normal to inspection, full ROM and no clubbing, cyanosis or edema; negative for no pedal edema NARRATIVE EXTREMITY EXAM: -heel protectors on Neuro: COMMON NORMALS: moves all extremities, no focal motor deficits and no sensory deficits noted SENSORIUM/ORIENTATION: Yes alert and Yes oriented to person Psych: COMMON NORMALS: cooperative SPEECH: Yes slow and Yes soft MOOD & AFFECT: Yes Flat affect present MEMORY/COGNITION: Yes cognition grossly impaired INSIGHT: Limited insight present (Psych) Skin: COMMON NORMALS: no jaundice, no petechiae and no mottling NARRATIVE SKIN EXAM: -some excoriation on sacrum GENERAL SKIN EXAM: Excoriation Urinary Catheter Management^: Irwin: Cath Placed During This Visit: yes, but has since been removed by the nurse Reason for Continuing Indwelling Catheter: Decision to DC Catheter Urinary Catheter Date of Insertion: 12/21/19 Urinary Catheter Time of Insertion: 11:50 Date Urinary Catheter Removed: 12/26/19 Time Urinary Catheter Discontinued: 10:40 Data : 01/03/20 03:27 01/03/20 03:27 A&P Assessment and plan (1) Dementia: -Appears to be alert and oriented to self primarily, able to follow very simple commands -Appreciate psychiatry evaluation; on Zoloft -Strict fall precautions, reorient as needed -Lacks decision-making capacity; pending decision on guardianship and subsequent placement Status: Acute Qualifiers: Dementia behavioral disturbance: without behavioral disturbance Dementia type: unspecified type Qualified Code(s): F03.90 - Unspecified dementia without behavioral disturbance (2) Acute hypernatremia: -Sodium levels within normal limits Status: Resolved (3) Dehydration: -Encourage oral hydration Status: Resolved (4) Hypercalcemia: -likely secondary to dehydration -PTH normal Status: Resolved (5) Elevated troponin: -likely type II due to demand ischemia Status: Acute (6) Encephalopathy acute: -has persisted even after correction of electrolyte abnormalities -negative acute findings on CT though noted frontotemporal atrophy -TSH, B12 levels wnl -on oral thiamine Status: Acute Additional A&P Information -Previously noted transaminitis now resolved -Had been noted to have mild thrombocytopenia, resolved -hypertensive, on Amlodipine; BP improving -dysphagia diet; assistance with meals, add Ensure for more nutritional support due to minimal appetite -DVT ppx with heparin -Dispo: pending guardianship hearing (scheduled for 01/09 @ 1300) and placement (accepted to [facility]) -Code status: FULL code Attestations Medical Necessity Statement*: Patient requires hospitalization for continued care pending appropriate disposition. Time Spent in Patient Care: less than 15 minutes (>than 50% of time spent in counselling and/or direct pt care on unit). 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
[2020-01-07 16:00] VITALS: BP 151/80; PULSE 85; RESP 18; TEMP 36.9; O2SAT 98
[2020-01-07 20:00] VITALS: BP 149/78; PULSE 84; RESP 22; TEMP 36.7; O2SAT 94
[2020-01-08] VITALS: BP 149/79; PULSE 97; RESP 18; TEMP 36.9; O2SAT 94
[2020-01-08 04:00] VITALS: BP 124/74; PULSE 88; RESP 22; TEMP 36.7; O2SAT 97
[2020-01-08 08:00] VITALS: BP 132/64; PULSE 78; RESP 18; TEMP 37.2; O2SAT 94
[2020-01-08] MEDS: heparin 5,000 unit/mL INJ 1 mL 5000 UNIT SUBCUT ×2 (08:53→20:49)
[2020-01-08] MEDS: sertraline 50 mg Tablet 75 MG PO (08:53)
[2020-01-08] MEDS: amlodipine 5 mg Tablet PO (08:55)
[2020-01-08] MEDS: thiamine 100 mg Tablet PO (08:55)
[2020-01-08] MEDS: acetaminophen 325 mg Tablet 650 MG PO ×2 (08:55→20:49)
[2020-01-08 11:28] VITALS: BP 140/76; PULSE 89; RESP 24; TEMP 37.4; O2SAT 96
--- NOTE | 2020-01-08 14:03 | PM.PN ---
Subjective Subjective: Interval history: BP improving, resting quietly in bed, remains confused. Medications: Reviewed: Yes Medication Review Details: Active Medications Generic Name Dose Route Start Last Admin Trade Name Freq PRN Reason Stop Dose Admin Acetaminophen 650 mg 12/21/19 15:14 01/08/20 08:55 Tylenol PO 650 mg Q6H PRN Administration Mild/Mod Pain Or Temp >/= 101 Amlodipine Besylat e 5 mg 01/06/20 09:00 01/08/20 08:55 Norvasc PO 5 mg DAILY YFN Administration Heparin Sodium (Be ef Lung) 5,000 unit 12/21/19 15:30 01/08/20 08:53 Heparin SUBCUT 5,000 unit Q12H YFN Administration Ondansetron HCl 4 mg 12/21/19 15:14 Zofran IVP Q6H PRN NAUSEA AND VOMITI NG Sertraline HCl 75 mg 01/03/20 09:00 01/08/20 08:53 Zoloft PO 75 mg DAILY YFN Administration Thiamine Mononitra te 100 mg 12/26/19 09:00 01/08/20 08:55 Vitamin B-1 PO 100 mg DAILY YFN Administration No Known Allergies Allergy (Verified 11/07/19 09:48) Vitals/I&O/Wt Last Vital Signs Temp 99.3 F 01/08/20 11:28 Pulse 89 01/08/20 11:28 Resp 24 H 01/08/20 11:28 BP 140/76 01/08/20 11:28 Pulse Ox 96 01/08/20 11:28 01/07/20 01/08/20 01/08/20 22:59 06:59 14:59 Intake Total 200 / 800 600 / 600 Output Total 2 / 5 Balance 198 / 795 600 / 600 Physical Exam Const: COMMON NORMALS: no acute distress and alert GENERAL APPEARANCE: cooperative, comfortable and frail appearing ORIENTATION/CONSCIOUSNESS: Yes awake and Yes oriented to person OTHER: -Looks appropriate for age HENMT: COMMON NORMALS: normocephalic, atraumatic, hearing grossly normal bilaterally and moist oral mucous membranes HEAD & SCALP: normocephalic and atraumatic TEETH & GINGIVA: Yes poor dentition Eye: COMMON NORMALS: Equal, round and reactive pupils present, EOMs intact bilaterally and conjunctivae normal CONJUNCTIVA: Yes conjunctivae normal PUPIL: Yes Equal, round and reactive pupils present Neck/C-Spine: COMMON NORMALS: full ROM GENERAL: Yes normal visual inspection and Yes trachea midline Resp: COMMON NORMALS: normal respiratory effort, No retractions, No use of accessory muscles and clear to auscultation bilaterally EFFORT & INSPECTION: Yes able to speak in complete sentences, Yes symmetric chest movement and No tachypneic AUSCULTATION: clear to auscultation bilaterally OTHER: -on RA Cardio: COMMON NORMALS: regular rate, regular rhythm, S1 normal heart sound present, S2 normal heart sound present and No murmurs present (Cardio) RATE: regular rate RHYTHM: regular rhythm HEART SOUNDS: S1 normal heart sound present and S2 normal heart sound present GI: COMMON NORMALS: Normal to inspection, nondistended, normoactive bowel sounds present, Soft to palpation and non-tender PALPATION: Yes Soft to palpation Extremity: COMMON NORMALS: normal to inspection, full ROM and no clubbing, cyanosis or edema; negative for no pedal edema NARRATIVE EXTREMITY EXAM: -heel protectors on Neuro: COMMON NORMALS: moves all extremities, no focal motor deficits and no sensory deficits noted SENSORIUM/ORIENTATION: Yes alert and Yes oriented to person Psych: COMMON NORMALS: cooperative SPEECH: Yes slow and Yes soft MOOD & AFFECT: Yes Flat affect present MEMORY/COGNITION: Yes cognition grossly impaired INSIGHT: Limited insight present (Psych) Skin: COMMON NORMALS: no jaundice, no petechiae and no mottling NARRATIVE SKIN EXAM: -some excoriation on sacrum GENERAL SKIN EXAM: Excoriation Urinary Catheter Management^: Irwin: Cath Placed During This Visit: yes, but has since been removed by the nurse Reason for Continuing Indwelling Catheter: Decision to DC Catheter Urinary Catheter Date of Insertion: 12/21/19 Urinary Catheter Time of Insertion: 11:50 Date Urinary Catheter Removed: 12/26/19 Time Urinary Catheter Discontinued: 10:40 Data : 01/03/20 03:27 01/03/20 03:27 A&P Assessment and plan (1) Dementia: -Appears to be alert and oriented to self primarily, able to follow very simple commands -Appreciate psychiatry evaluation; on Zoloft -Strict fall precautions, reorient as needed -Lacks decision-making capacity; pending decision on guardianship and subsequent placement Status: Acute Qualifiers: Dementia behavioral disturbance: without behavioral disturbance Dementia type: unspecified type Qualified Code(s): F03.90 - Unspecified dementia without behavioral disturbance (2) Acute hypernatremia: -Sodium levels within normal limits Status: Resolved (3) Dehydration: -Encourage oral hydration Status: Resolved (4) Hypercalcemia: -likely secondary to dehydration -PTH normal Status: Resolved (5) Elevated troponin: -likely type II due to demand ischemia Status: Acute (6) Encephalopathy acute: -has persisted even after correction of electrolyte abnormalities -negative acute findings on CT though noted frontotemporal atrophy -TSH, B12 levels wnl -on oral thiamine Status: Acute Additional A&P Information -Previously noted transaminitis now resolved -Had been noted to have mild thrombocytopenia, resolved -hypertensive, on Amlodipine; BP improving -incontinent -dysphagia diet; assistance with meals, add Ensure for more nutritional support due to minimal appetite -DVT ppx with heparin -Dispo: pending guardianship hearing (scheduled for 01/09 @ 1300) and placement (accepted to [facility]) -Code status: FULL code Attestations Medical Necessity Statement*: Patient requires hospitalization for continued care pending appropriate disposition. Time Spent in Patient Care: less than 15 minutes (>than 50% of time spent in counselling and/or direct pt care on unit). 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
[2020-01-08 15:44] VITALS: BP 138/76; PULSE 74; RESP 20; TEMP 37.3; O2SAT 97
[2020-01-08 20:00] VITALS: BP 144/78; PULSE 76; RESP 22; TEMP 36.9; O2SAT 96
[2020-01-09] VITALS: BP 148/92; PULSE 93; RESP 17; TEMP 37.2; O2SAT 97
[2020-01-09 04:00] VITALS: BP 159/91; PULSE 93; RESP 20; TEMP 36.9; O2SAT 96
[2020-01-09 08:00] VITALS: BP 148/86; PULSE 89; RESP 18; TEMP 36.9
--- NOTE | 2020-01-09 10:43 | PC.SOCIAL ---
IMM Not Given IMM not given as we are seeking guardianship on this patient.
[2020-01-09] MEDS: heparin 5,000 unit/mL INJ 1 mL 5000 UNIT SUBCUT ×2 (10:47→21:44)
[2020-01-09] MEDS: thiamine 100 mg Tablet PO (10:47)
[2020-01-09] MEDS: sertraline 50 mg Tablet 75 MG PO (10:47)
[2020-01-09] MEDS: amlodipine 5 mg Tablet PO (10:48)
[2020-01-09 11:37] VITALS: BP 138/74; PULSE 68; RESP 22; TEMP 36.6; O2SAT 96
--- NOTE | 2020-01-09 14:44 | P.PN_ITS ---
Subjective Subjective: Interval history: Hemodynamically stable, afebrile, resting quietly in bed, easily arousable, minimal verbal engagement, remains confused, selective with what she eats, seems to be drinking better. Medications: Reviewed: Yes Medication Review Details: Current Medications Generic Name Dose Route Start Last Admin Trade Name Freq PRN Reason Stop Dose Admin Acetaminophen 650 mg 12/21/19 15:14 01/08/20 20:49 Tylenol PO 650 mg Q6H PRN Administration Mild/Mod Pain Or Temp >/= 101 Amlodipine Besylat e 5 mg 01/06/20 09:00 01/09/20 10:48 Norvasc PO 5 mg DAILY YFN Administration Heparin Sodium (Be ef Lung) 5,000 unit 12/21/19 15:30 01/09/20 10:47 Heparin SUBCUT 5,000 unit Q12H YFN Administration Sertraline HCl 75 mg 01/03/20 09:00 01/09/20 10:47 Zoloft PO 75 mg DAILY YFN Administration Thiamine Mononitra te 100 mg 12/26/19 09:00 01/09/20 10:47 Vitamin B-1 PO 100 mg DAILY YFN Administration Vitals/I&O/Wt Last Vital Signs Temp 97.9 F 01/09/20 11:37 Pulse 68 01/09/20 11:37 Resp 22 H 01/09/20 11:37 BP 138/74 01/09/20 11:37 Pulse Ox 96 01/09/20 11:37 01/08/20 01/09/20 01/09/20 22:59 06:59 14:59 Intake Total 120 / 720 240 / 240 Balance 120 / 720 240 / 240 Physical Exam Const: COMMON NORMALS: no acute distress and alert GENERAL APPEARANCE: cooperative, comfortable and frail appearing ORIENTATION/CONSCIOUSNESS: Yes awake and Yes oriented to person OTHER: -Looks appropriate for age HENMT: COMMON NORMALS: normocephalic, atraumatic, hearing grossly normal bilaterally and moist oral mucous membranes HEAD & SCALP: normocephalic and atraumatic TEETH & GINGIVA: Yes poor dentition Eye: COMMON NORMALS: Equal, round and reactive pupils present, EOMs intact bilaterally and conjunctivae normal CONJUNCTIVA: Yes conjunctivae normal PUPIL: Yes Equal, round and reactive pupils present Neck/C-Spine: COMMON NORMALS: full ROM GENERAL: Yes normal visual inspection and Yes trachea midline Resp: COMMON NORMALS: normal respiratory effort, No retractions, No use of accessory muscles and clear to auscultation bilaterally EFFORT & INSPECTION: Yes able to speak in complete sentences, Yes symmetric chest movement and No tachypneic AUSCULTATION: clear to auscultation bilaterally OTHER: -on RA Cardio: COMMON NORMALS: regular rate, regular rhythm, S1 normal heart sound present, S2 normal heart sound present and No murmurs present (Cardio) RATE: regular rate RHYTHM: regular rhythm HEART SOUNDS: S1 normal heart sound present and S2 normal heart sound present GI: COMMON NORMALS: Normal to inspection, nondistended, normoactive bowel sounds present, Soft to palpation and non-tender PALPATION: Yes Soft to palpation Extremity: COMMON NORMALS: normal to inspection, full ROM and no clubbing, cyanosis or edema; negative for no pedal edema NARRATIVE EXTREMITY EXAM: -heel protectors on Neuro: COMMON NORMALS: moves all extremities, no focal motor deficits and no sensory deficits noted SENSORIUM/ORIENTATION: Yes alert and Yes oriented to person Psych: COMMON NORMALS: cooperative SPEECH: Yes slow and Yes soft MOOD & AFFECT: Yes Flat affect present MEMORY/COGNITION: Yes cognition grossly impaired INSIGHT: Limited insight present (Psych) Skin: COMMON NORMALS: no jaundice, no petechiae and no mottling NARRATIVE SKIN EXAM: -some excoriation on sacrum GENERAL SKIN EXAM: Excoriation Urinary Catheter Management^: Irwin: Cath Placed During This Visit: yes, but has since been removed by the nurse Reason for Continuing Indwelling Catheter: Decision to DC Catheter Urinary Catheter Date of Insertion: 12/21/19 Urinary Catheter Time of Insertion: 11:50 Date Urinary Catheter Removed: 12/26/19 Time Urinary Catheter Discontinued: 10:40 Data : 01/03/20 03:27 01/03/20 03:27 A&P Assessment and plan (1) Dementia: -Appears to be alert and oriented to self primarily, able to follow very simple commands -Appreciate psychiatry evaluation; on Zoloft -Strict fall precautions, reorient as needed -Lacks decision-making capacity; pending decision on guardianship and subsequent placement Status: Acute Qualifiers: Dementia behavioral disturbance: without behavioral disturbance Dementia type: unspecified type Qualified Code(s): F03.90 - Unspecified dementi a without behavioral disturbance (2) Acute hypernatremia: -Sodium levels within normal limits Status: Resolved (3) Dehydration: -Encourage oral hydration Status: Resolved (4) Hypercalcemia: -likely secondary to dehydration -PTH normal Status: Resolved (5) Elevated troponin: -likely type II due to demand ischemia Status: Acute (6) Encephalopathy acute: -has persisted even after correction of electrolyte abnormalities -negative acute findings on CT though noted frontotemporal atrophy -TSH, B12 levels wnl -on oral thiamine Status: Acute Additional A&P Information -Previously noted transaminitis now resolved -Had been noted to have mild thrombocytopenia, resolved -hypertensive, on Amlodipine, will maximize dose for more optimal and consistent BP control -incontinent -dysphagia diet; assistance with meals, add Ensure for more nutritional support due to minimal appetite -DVT ppx with heparin -Dispo: pending guardianship hearing (scheduled for 01/09 @ 1300) and placement (accepted to [facility]) -Code status: FULL code Attestations Medical Necessity Statement*: Patient requires hospitalization for continued care pending appropriate disposition. Time Spent in Patient Care: less than 15 minutes (>than 50% of time spent in counselling and/or direct pt care on unit) . 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
[2020-01-09 15:48] VITALS: BP 149/96; PULSE 112; RESP 18; TEMP 37.6
[2020-01-09 20:00] VITALS: BP 148/81; PULSE 95; RESP 17; TEMP 36.9; O2SAT 95
[2020-01-10] VITALS: BP 157/84; PULSE 100; RESP 20; TEMP 36.7; O2SAT 95
[2020-01-10 04:00] VITALS: BP 156/90; PULSE 95; RESP 14; TEMP 37; O2SAT 95
[2020-01-10 08:00] VITALS: BP 149/88; PULSE 90; RESP 16; TEMP 37.1; O2SAT 95
[2020-01-10] MEDS: sertraline 50 mg Tablet 75 MG PO (10:17)
--- NOTE | 2020-01-10 10:17 | PC.CHAP ---
Pastoral Care Encounter/Spiritual Assessment Type of Contact [] Declined full stack net developer visit [] Patient/Family/Request visit [] Outpatient visit [] Follow-up visit [] Physician referral [] Code/Alert [x] Routine visit [] Staff referral [] Actively dying [] Patient sleeping [] Family support [] [] Out of room [] Palliative care [] [] Receiving care in room [] Pre-surgical visit [] Trauma [] Long length of stay [] ICU visit [x] Other: isolation Relational/Emotional Strength [] Patient feels connected with others/family/visitors/staff [] Distress [] Loneliness/isolation [] Abandonment Spirituality of Patient [] Person of Jodie [] Attends Christianity of their Jodie [] Believes in Prayer [] Reads Bible or Taoist materials [] There are Spiritual issues to be addressed Associate Professor Of Forestry Interventions [] Prayer [] Active listening [] Non-anxious presence [] Spiritual/emotional support [] Crisis/trauma care [] Spiritual counseling [] Bereavement support [] Provided bereavement packet [] Provided Bible/devotional materials [] Provided toy/stuffed animal, coloring book to patient or family member [] Provided Communion [] Anointing/[place] [] Salvation [x] Completed spiritual assessment [] Other: Impact on Illness or Injury [] Angry [] Fearful [] Anxious [] Often cries [] Exhaustion [] Unable to work [] Unable to attend mormonism [] Unable to walk/stand [] Unable to read [] Unable to drive [] Unable to eat/drink [] Unable to sleep [] Unable to be with family [] Patient intubated [] Other: Summary Time spent with patient
[2020-01-10] MEDS: thiamine 100 mg Tablet PO (10:19)
[2020-01-10] MEDS: amlodipine 10 mg Tablet PO (10:20)
[2020-01-10] MEDS: heparin 5,000 unit/mL INJ 1 mL 5000 UNIT SUBCUT (10:24)
[2020-01-10 12:00] VITALS: BP 144/89; PULSE 86; RESP 18; TEMP 36.8; O2SAT 96
--- NOTE | 2020-01-10 14:21 | P.DS_ITS ---
Discharge Providers Date of Admission: 12/21/19 13:49 Date of Discharge: January 10, 2020 Attending Provider at Admission: Joseph Montoya MD Attending Provider at Discharge: Fabi Bailey MD Consults: Psychiatry, Dr. Omer Primary Care Provider: Felice Xavier MD Diagnoses at Discharge Discharge Diagnosis (1) Dementia: Status: Chronic Problem details: -Appears to be alert and oriented to self primarily, able to follow very simple commands -Appreciate psychiatry evaluation; on Zoloft -Strict fall precautions, reorient as needed -Lacks decision-making capacity; pending decision on guardianship and subsequent placement Qualifiers: Dementia type: unspecified type Dementia behavioral disturbance: without behavioral disturbance Qualified Code(s): F03.90 - Unspecified dementia without behavioral disturbance (2) Acute hypernatremia: Status: Resolved Problem details: -Sodium levels within normal limits (3) Dehydration: Status: Resolved (4) Hypercalcemia: Status: Resolved Problem details: -likely secondary to dehydration -PTH normal (5) Elevated troponin: Status: Acute Problem details: -likely type II due to demand ischemia (6) Encephalopathy acute: Status: Acute Problem details: -has persisted even after correction of electrolyte abnormalities and dehydration -negative acute findings on CT though noted frontotemporal atrophy -TSH, B12 levels wnl -on oral thiamine Other Information Additional DC diagnoses/information: -Previously noted transaminitis now resolved -Had been noted to have mild thrombocytopenia, resolved -hypertensive, on Amlodipine -incontinent Reason for Visit Reason for Visit: SEPSIS Hospital Course Hospital Course: Patient has had a prolonged hospital stay, initially presented with dehydration, acute encephalopathy, acute hypernatremia and was admitted to ICU. IV fluid hydration was started resulting in normalization of her electrolytes. She had also presented with a lactic acid elevation with no evidence of infection which was likely due to dehydration as well so was not treated with any antibiotic therapy. Mental status unfortunately did not improve and she appears to have at least some degree of underlying dementia. Psychiatry was consulted to determine decision-making capacity to facilitate placement process as patient would need 24/7 supervision and no family support available. Patient was deemed incompetent to make her own decisions and as no surrogate decision makers available guardianship was pursued. Once medically stable she was transferred to the medical surgical floor for continued care. Once able to tolerate some oral intake IV fluid hydration was discontinued. Therapy evaluations were limited due to patient's inability to consistently follow commands. She has been on strict fall precautions and has required some assistance with meals. Noted to have some hypertension so oral antihypertensive added to optimize blood pressure control. She is incontinent at baseline and requires frequent repositioning. Has consistently been on room air, and afebrile. Once guardianship established and disposition finalized patient was discharged to [facility]. Discharge Summary: -Patient to follow-up with primary care provider within 1 week or per SNF Physical Exam Const: COMMON NORMALS: no acute distress and alert GENERAL APPEARANCE: co operative, comfortable and frail appearing ORIENTATION/CONSCIOUSNESS: Yes awake and Yes oriented to person OTHER: -Looks appropriate for age HENMT: COMMON NORMALS: normocephalic, atraumatic, hearing grossly normal bilaterally and moist oral mucous membranes HEAD & SCALP: normocephalic and atraumatic TEETH & GINGIVA: Yes poor dentition Eye: COMMON NORMALS: Equal, round and reactive pupils present, EOMs intact bilaterally and conjunctivae normal CONJUNCTIVA: Yes conjunctivae normal PUPIL: Yes Equal, round and reactive pupils present Neck/C-Spine: COMMON NORMALS: full ROM GENERAL: Yes normal visual inspection and Yes trachea midline Resp: COMMON NORMALS: normal respiratory effort, No retractions, No use of accessory muscles and clear to auscultation bilaterally EFFORT & INSPECTION: Yes able to speak in complete sentences, Yes symmetric chest movement and No tachypneic AUSCULTATION: clear to auscultation bilaterally OTHER: -on RA Cardio: COMMON NORMALS: regular rate, regular rhythm, S1 normal heart sound present, S2 normal heart sound present and No murmurs present (Cardio) RATE: regular rate RHYTHM: regular rhythm HEART SOUNDS: S1 normal heart sound present and S2 normal heart sound present GI: COMMON NORMALS: Normal to inspection, nondistended, normoactive bowel sounds present, Soft to palpation and non-tender PALPATION: Yes Soft to palpation Extremity: COMMON NORMALS: normal to inspection, full ROM and no clubbing, cyanosis or edema; negative for no pedal edema NARRATIVE EXTREMITY EXAM: -heel protectors on Neuro: COMMON NORMALS: moves all extremities, no focal motor deficits and no sensory deficits noted SENSORIUM/ORIENTATION: Yes alert and Yes oriented to person Psych: COMMON NORMALS: cooperative SPEECH: Yes slow and Yes soft MOOD & AFFECT: Yes Flat affect present MEMORY/COGNITION: Yes cognition grossly impaired INSIGHT: Limited insight present (Psych) Skin: COMMON NORMALS: no jaundice, no petechiae and no mottling NARRATIVE SKIN EXAM: -some excoriation on sacrum GENERAL SKIN EXAM: Excoriation Urinary Catheter Management^: Irwin: Cath Placed During This Visit: yes, but has since been removed by the nurse Reason for Continuing Indwelling Catheter: Decision to DC Catheter Urinary Catheter Date of Insertion: 12/21/19 Urinary Catheter Time of Insertion: 11:50 Date Urinary Catheter Removed: 12/26/19 Time Urinary Catheter Discontinued: 10:40 Discharge Data Data Completed and Pending: Completed Studies During Hospitalization Category Date Time Status CT head wo con* 7 0450 Stat Cat Scan 12/21/19 11:36 Completed XR chest 1V nadine ble 39354 Stat Exams 12/21/19 11:36 Completed Vitals: Last Vital Signs Temp 98.2 F 01/10/20 12:00 Pulse 86 01/10/20 12:00 Resp 18 01/10/20 12:00 BP 144/89 01/10/20 12:00 Pulse Ox 96 01/10/20 12:00 Discharge Plan Discharge Patient Disposition: Xfer SNF Condition: Stable Prescriptions: New amlodipine 10 mg Tablet 10 mg PO DAILY Qty: 30 RF: 0 sertraline 50 mg Tablet 75 mg PO DAILY 30 Days Qty: 45 RF: 0 Vitamin B-1 (mononitrate) 100 mg Tablet 100 mg PO DAILY 30 Days Qty: 30 RF: 0 Continued Vitamin B-12 1,000 mcg Tablet Extended Release 1,000 mcg PO DAILY Qty: 30 RF: 0 magnesium 250 mg Tablet 250 mg PO DAILY Qty: 30 RF: 0 Vitamin D3 10 mcg (400 unit) Capsule 10 mcg PO DAILY Qty: 30 RF: 0 Discontinued meloxicam 7.5 mg Tablet 7.5 mg PO DAILY RF: 0 Discharge Orders: Discharge Order (Routine); Ordered 01/10/20 Ordered By: Fabi Bailey Referrals: Felice Xavier MD [Primary Care Provider] - 4-7 days (Post hospital discharge follow up) Discharge Diet: Regular Discharge Activity: As per PT/OT instructions Activity Restrictions/Additional Instructions: -Patient continues to be at high risk for falls so please continue strict fall precautions. She will require assistance with all out of bed activity. -Patient requires assistance with meals, should be on dysphagia diet and would benefit from Ensure supplementation with age meal to optimize nutritional status -She will require frequent repositioning every 2 hours due to limited mobility Discharge Attestations Time Spent in Discharge Care*: greater than 30 min Specific Discharge Activities: Specific discharge activities: discussing with mental health case manager/social workers/dc planners, documenting/other paperwork and evaluating patient/reviewing data Status at Discharge: Cognitive status at discharge: moderately impaired cognition , Behavioral status at discharge: dependent in ADL's , Functional status at discharge: bed bound Overall status at discharge: patient has a new baseline Quality Metrics Clinical Quality Measures During this hospital stay, did patient experience: None Coding Level of Care Code 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
[2020-01-10 16:00] VITALS: BP 132/72; PULSE 96; RESP 16; TEMP 36.7; O2SAT 95
[2020-01-10 20:44] VITALS: BP 132/72; PULSE 96; RESP 16; TEMP 36.7; O2SAT 95
== END 2020-01-10 20:00 | disposition skilled nursing facility (03) | DRG 640 ==
LOC: ER 12:29 → ICU 14:33 → MEDSURG 12-22 22:02
PROVIDERS: Emergency Medicine; Internal Medicine; Admitting Provider Internal Medicine; PCP Family Medicine; Visit Provider Family Medicine
DX: E87.0 Hyperosmolality and hypernatremia (principal); G93.41 Metabolic encephalopathy; I24.8 Other forms of acute ischemic heart disease; E86.0 Dehydration; E83.52 Hypercalcemia; E87.6 Hypokalemia; D69.6 Thrombocytopenia, unspecified; F03.90 Unspecified dementia, unspecified severity, without behavioral disturbance, psychotic disturbance, mood disturbance, and anxiety; I10 Essential (primary) hypertension
CPT/HCPCS: 12345; 36415; 36416; 36600; 51702; 70450; 71045; 80048; 80051; 80053; 80306; 81001; 82009; 82140; 82310; 82550; 82607; 82810; 82962; 83605; 83690; 83735; 83970; 83986; 84145; 84439; 84443; 84484; 85025; 85610; 87040; 87086; 92526; 92610; 93005; 96372; 96375; 97161; 97530; 99284; J1644; J2405; J3411; J7030